=== PATIENT | male | born 1940 | race Two or more races ===

== ENCOUNTER → 2016-05-11 | Outpatient (CLI) | payer OTHER ==
[2016-05-11 09:51] LABS: Urine Protein/Creatinine Ratio 0.13
[2016-05-11 10:36] LABS: Albumin 3.7 g/dL (3.4-5.0); BUN/Creatinine Ratio 21.3; Bilirubin, Total 0.5 mg/dL (0.2-1.0); Calcium 9.4 mg/dL (8.5-10.1); Magnesium 2.1 mg/dL (1.6-2.6); Uric Acid 5.6 mg/dL (3.5-7.2)
== END | disposition home or self-care (01) ==
LOC: LAB 08:31
PROVIDERS: ATTEND Internal Medicine Nephrology
DX: R80.9 Proteinuria, unspecified (principal)
CPT/HCPCS: 36415; 80053; 80061; 82570; 83036; 83735; 84156; 84550

== ENCOUNTER → 2016-05-26 | Outpatient (CLI) | payer OTHER ==
[2016-05-26 09:21] LABS: Basophils # (auto) 0 uL; Basophils % (auto) 0.3 % (0.0-2.0); Eosinophils # (auto) 0.1 uL; Eosinophils % (auto) 2.8 % (0.0-7.0); Hematocrit 36.7 % (41.0-53.0); Hemoglobin 12.1 g/dL (13.5-17.5); Lymphocytes # (auto) 1.5 uL; Lymphocytes % (auto) 29.1 % (10.0-50.0); Mean Corpuscular Hemoglobin 28.2 pg (28.0-32.0); Mean Corpuscular Hgb Conc. 32.9 g/dL (32.0-36.0); Mean Corpuscular Volume 85.6 fL (80.0-100.0); Monocytes # (auto) 0.3 uL; Neutrophils # (auto) 3.3 uL; Neutrophils % (auto) 61.8 % (37.0-80.0); Platelet Count (auto) 166 10^3/uL (140-450); Red Cell Distribution Width 15.6 % (11.6-16.0); White Blood Cell 5.3 10^3/uL (4.4-10.8)
[2016-05-26 09:32] LABS: Urine Bilirubin Negative (Negative); Urine Blood Negative /uL (Negative); Urine Color Yellow (Yellow); Urine Glucose Normal (Normal); Urine Ketone Negative (Negative); Urine Nitrite Negative (Negative); Urine RBC <1 /hpf (0 - 3); Urine Urobilinogen Normal (Negative); Urine pH 5.5 (5.0-8.0)
[2016-05-26 09:43] LABS: Albumin 3.8 g/dL (3.4-5.0); BUN/Creatinine Ratio 18.9; Bilirubin, Total 0.5 mg/dL (0.2-1.0); Calcium 9.2 mg/dL (8.5-10.1); Potassium 4.7 mmol/L (3.5-5.1); Total Protein 8.1 g/dL (6.4-8.2)
== END | disposition home or self-care (01) ==
LOC: LAB 08:08
DX: E11.21 Type 2 diabetes mellitus with diabetic nephropathy (principal); C61 Malignant neoplasm of prostate
CPT/HCPCS: 36415; 80053; 80061; 81001; 82043; 82306; 83036; 84153; 84443; 85025

== ENCOUNTER → 2016-06-15 | Outpatient (CLI) | payer OTHER ==
[2016-06-15 11:48] LABS: Basophils # (auto) 0 uL; Basophils % (auto) 0.5 % (0.0-2.0); Eosinophils # (auto) 0.1 uL; Eosinophils % (auto) 2.3 % (0.0-7.0); Hematocrit 36.9 % (41.0-53.0); Hemoglobin 12.2 g/dL (13.5-17.5); Lymphocytes # (auto) 1.4 uL; Lymphocytes % (auto) 21.2 % (10.0-50.0); Mean Corpuscular Hemoglobin 28.4 pg (28.0-32.0); Mean Corpuscular Volume 86.2 fL (80.0-100.0); Mean Platelet Volume 7.8 fL (7.4-10.4); Monocytes # (auto) 0.5 uL; Monocytes % (auto) 7.9 % (0.0-12.0); Neutrophils # (auto) 4.4 uL; Neutrophils % (auto) 68.1 % (37.0-80.0); Platelet Count (auto) 166 10^3/uL (140-450); Red Cell Distribution Width 15.5 % (11.6-16.0); White Blood Cell 6.5 10^3/uL (4.4-10.8)
[2016-06-15 13:15] LABS: Albumin 3.9 g/dL (3.4-5.0); BUN/Creatinine Ratio 21.3; Bilirubin, Total 0.5 mg/dL (0.2-1.0); Calcium 9.7 mg/dL (8.5-10.1); Potassium 4.7 mmol/L (3.5-5.1); Total Protein 8.1 g/dL (6.4-8.2)
== END | disposition home or self-care (01) ==
LOC: LAB 11:22
PROVIDERS: ATTEND Internal Medicine
DX: C61 Malignant neoplasm of prostate (principal)
CPT/HCPCS: 36415; 80053; 83615; 84153; 85025

== ENCOUNTER → 2016-09-09 | Outpatient (CLI) | payer OTHER ==
[2016-09-09 12:08] LABS: Albumin 3.6 g/dL (3.4-5.0); BUN/Creatinine Ratio 20.3; Bilirubin, Total 0.5 mg/dL (0.2-1.0); Calcium 8.8 mg/dL (8.5-10.1); Potassium 4.7 mmol/L (3.5-5.1); Total Protein 7.7 g/dL (6.4-8.2)
== END | disposition home or self-care (01) ==
LOC: LAB 11:15
PROVIDERS: ATTEND Internal Medicine Nephrology
DX: N18.3 Chronic kidney disease, stage 3 (moderate) (principal); D63.1 Anemia in chronic kidney disease; R80.9 Proteinuria, unspecified; M10.9 Gout, unspecified
CPT/HCPCS: 36415; 80053; 82043; 82570; 83036; 84153

== ENCOUNTER 2016-11-01 17:14 | Emergency (ER) | payer OTHER ==
[~2016-11-01] VITALS: Ht 170.2 cm; Wt 99.8 kg
[2016-11-01 18:28] LABS: Basophils # (auto) 0 uL; Basophils % (auto) 0.4 % (0.0-2.0); CONDITION Y; Eosinophils # (auto) 0.1 uL; Eosinophils % (auto) 1.7 % (0.0-7.0); Hematocrit 37.5 % (41.0-53.0); Hemoglobin 12.6 g/dL (13.5-17.5); Lymphocytes # (auto) 1.5 uL; Lymphocytes % (auto) 24.6 % (10.0-50.0); Mean Corpuscular Hemoglobin 29.3 pg (28.0-32.0); Mean Corpuscular Hgb Conc. 33.7 g/dL (32.0-36.0); Mean Platelet Volume 7.6 fL (7.4-10.4); Monocytes # (auto) 0.5 uL; Monocytes % (auto) 8.6 % (0.0-12.0); Neutrophils # (auto) 3.9 uL; Neutrophils % (auto) 64.7 % (37.0-80.0); Platelet Count (auto) 168 10^3/uL (140-450); Red Cell Distribution Width 15.7 % (11.6-16.0)
[2016-11-01 18:46] LABS: Albumin 3.9 g/dL (3.4-5.0); Alkaline Phosphatase 70 U/L (45-117); Anion Gap 8 (5-15); Aspartate Aminotransferase 16 U/L (15-37); Bilirubin, Total 0.5 mg/dL (0.2-1.0); Blood Urea Nitrogen 29 mg/dL (7-18); Calcium 8.9 mg/dL (8.5-10.1); Carbon Dioxide 27 mmol/L (21-32); Chloride 102 mmol/L (98-107); GFR African American 61 mL/min; GFR Non-African American 50 mL/min; Glucose 115 mg/dL (74-106); Potassium 4.4 mmol/L (3.5-5.1); Sodium 137 mmol/L (136-145); Total Protein 8.5 g/dL (6.4-8.2)
[2016-11-01 21:16] VITALS: BP 171/82
== END 2016-11-01 22:02 | disposition home or self-care (01) ==
LOC: ER 17:21
DX: B02.9 Zoster without complications (principal); E11.9 Type 2 diabetes mellitus without complications; E78.5 Hyperlipidemia, unspecified; I10 Essential (primary) hypertension; Z85.46 Personal history of malignant neoplasm of prostate
CPT/HCPCS: 36415; 71010; 80053; 84484; 85025; 93005

== ENCOUNTER → 2017-01-12 | Outpatient (CLI) | payer OTHER ==
[2017-01-12 08:28] LABS: Basophils # (auto) 0 uL; Basophils % (auto) 0.9 % (0.0-2.0); Eosinophils # (auto) 0.2 uL; Eosinophils % (auto) 3.3 % (0.0-7.0); Hematocrit 35.7 % (41.0-53.0); Hemoglobin 12.1 g/dL (13.5-17.5); Lymphocytes # (auto) 1.6 uL; Lymphocytes % (auto) 31.5 % (10.0-50.0); Mean Corpuscular Hemoglobin 30.2 pg (28.0-32.0); Mean Corpuscular Volume 89.1 fL (80.0-100.0); Mean Platelet Volume 7.3 fL (6.9-10.8); Monocytes # (auto) 0.4 uL; Monocytes % (auto) 7.9 % (0.0-12.0); Neutrophils # (auto) 2.8 uL; Neutrophils % (auto) 56.4 % (37.0-80.0); Nucleated Red Blood Cells % 0.1 %; Platelet Count (auto) 143 10^3/uL (140-450); Red Cell Distribution Width 15.1 % (11.8-14.3)
[2017-01-12 09:28] LABS: Albumin 3.6 g/dL (3.4-5.0); BUN/Creatinine Ratio 22.4; Bilirubin, Total 0.5 mg/dL (0.2-1.0); Calcium 8.9 mg/dL (8.5-10.1); Potassium 4.4 mmol/L (3.5-5.1)
== END | disposition home or self-care (01) ==
LOC: LAB 07:58
PROVIDERS: ATTEND Internal Medicine
DX: I10 Essential (primary) hypertension (principal); E11.9 Type 2 diabetes mellitus without complications
CPT/HCPCS: 36415; 80053; 83036; 83721; 85025

== ENCOUNTER → 2017-03-10 | Outpatient (CLI) | payer OTHER | END | disposition home or self-care (01) | LOC: LAB 15:26 | PROVIDERS: ATTEND Internal Medicine | DX: D64.9 Anemia, unspecified (principal) | CPT/HCPCS: 82270 ==

== ENCOUNTER → 2017-03-30 | Outpatient (CLI) | payer OTHER ==
[2017-03-30 11:37] LABS: Basophils # (auto) 0 uL; Basophils % (auto) 0.6 % (0.0-2.0); Eosinophils # (auto) 0.2 uL; Eosinophils % (auto) 2.4 % (0.0-7.0); Hematocrit 34.9 % (41.0-53.0); Hemoglobin 11.7 g/dL (13.5-17.5); Mean Corpuscular Hemoglobin 29.1 pg (28.0-32.0); Mean Corpuscular Hgb Conc. 33.4 g/dL (32.0-36.0); Mean Platelet Volume 7.4 fL (6.9-10.8); Monocytes # (auto) 0.5 uL; Neutrophils # (auto) 5.2 uL; Platelet Count (auto) 186 10^3/uL (140-450); Red Cell Distribution Width 14.3 % (11.8-14.3); White Blood Cell 6.8 10^3/uL (4.4-10.8)
[2017-03-30 12:00] LABS: Albumin 3.4 g/dL (3.4-5.0); BUN/Creatinine Ratio 15.3; Bilirubin, Total 0.5 mg/dL (0.2-1.0); Calcium 8.9 mg/dL (8.5-10.1); Potassium 4.3 mmol/L (3.5-5.1); Total Protein 8.1 g/dL (6.4-8.2)
== END | disposition home or self-care (01) ==
LOC: LAB 10:47
PROVIDERS: ATTEND Internal Medicine
DX: C61 Malignant neoplasm of prostate (principal)
CPT/HCPCS: 36415; 80053; 83615; 84153; 85025

== ENCOUNTER → 2017-04-21 | Outpatient (CLI) | payer OTHER ==
[2017-04-22 08:56] LABS: Free T4 (Free Thyroxine) 0.85 ng/dL (0.89-1.76)
== END | disposition home or self-care (01) ==
LOC: LAB 08:53
PROVIDERS: ATTEND Internal Medicine Cardiovascular Disease
DX: E11.9 Type 2 diabetes mellitus without complications (principal); D64.9 Anemia, unspecified; E03.9 Hypothyroidism, unspecified; I25.10 Atherosclerotic heart disease of native coronary artery without angina pectoris; R91.1 Solitary pulmonary nodule
CPT/HCPCS: 36415; 82607; 83036; 83540; 83615; 84439; 84443

== ENCOUNTER → 2017-04-27 | Outpatient (CLI) | payer OTHER | END | disposition home or self-care (01) | LOC: XYW 09:54 | PROVIDERS: ATTEND Internal Medicine Cardiovascular Disease | DX: I08.0 Rheumatic disorders of both mitral and aortic valves (principal); I25.10 Atherosclerotic heart disease of native coronary artery without angina pectoris; R91.1 Solitary pulmonary nodule | CPT/HCPCS: 93306 ==

== ENCOUNTER → 2017-11-11 | Outpatient (CLI) | payer OTHER, MEDICARE ==
[2017-11-11 09:50] LABS: Basophils # (auto) 0 uL; Basophils % (auto) 0.9 % (0.0-2.0); Eosinophils # (auto) 0.2 uL; Eosinophils % (auto) 4.2 % (0.0-7.0); Hematocrit 33.5 % (41.0-53.0); Hemoglobin 10.9 g/dL (13.5-17.5); Lymphocytes # (auto) 1.2 uL; Lymphocytes % (auto) 26.8 % (10.0-50.0); Mean Corpuscular Hemoglobin 28.7 pg (28.0-32.0); Mean Corpuscular Hgb Conc. 32.7 g/dL (32.0-36.0); Monocytes # (auto) 0.3 uL; Monocytes % (auto) 6.7 % (0.0-12.0); Neutrophils # (auto) 2.8 uL; Neutrophils % (auto) 61.4 % (37.0-80.0); Platelet Count (auto) 139 10^3/uL (140-450); Red Blood Cells 3.81 10^6/uL (4.5-5.90); Red Cell Distribution Width 15.6 % (11.8-14.3); White Blood Cell 4.6 10^3/uL (4.4-10.8)
[2017-11-11 10:03] LABS: Urine Bacteria NONE SEEN /hpf (None Seen); Urine Blood TRACE /uL (Negative); Urine Specific Gravity 1.019 (1.001-1.035); Urine WBC 1 /hpf (0 - 3)
[2017-11-11 10:18] LABS: Albumin 3.6 g/dL (3.4-5.0); BUN/Creatinine Ratio 22.8; Bilirubin, Total 0.7 mg/dL (0.2-1.0); Calcium 8.9 mg/dL (8.5-10.1); Potassium 4.1 mmol/L (3.5-5.1); Total Protein 7.8 g/dL (6.4-8.2)
== END | disposition home or self-care (01) ==
LOC: LAB 08:44
PROVIDERS: ATTEND Internal Medicine
DX: E11.9 Type 2 diabetes mellitus without complications (principal); E03.9 Hypothyroidism, unspecified; D64.9 Anemia, unspecified; Z85.46 Personal history of malignant neoplasm of prostate
CPT/HCPCS: 36415; 80053; 80061; 81001; 83036; 83540; 84439; 84443; 85025; 85652

== ENCOUNTER → 2017-11-22 | Outpatient (CLI) | payer OTHER ==
[~2017-11-22] VITALS: Ht 165.1 cm; Wt 104.3 kg
[~2017-11-22] MED LIST: ADENOSINE 88 MG in GIVE UN-DILUTED 0 ML IV STA
[2017-11-22 10:55] VITALS: BP 153/69
== END | disposition home or self-care (01) ==
LOC: XY 07:56
PROVIDERS: ATTEND Internal Medicine
DX: I10 Essential (primary) hypertension (principal); E11.9 Type 2 diabetes mellitus without complications; E03.9 Hypothyroidism, unspecified
CPT/HCPCS: 78452; 93017; A9500; J0153

== ENCOUNTER → 2017-11-29 | Outpatient (CLI) | payer OTHER ==
[2017-11-29 11:16] LABS: Basophils # (auto) 0 uL; Basophils % (auto) 1.1 % (0.0-2.0); Eosinophils # (auto) 0.2 uL; Eosinophils % (auto) 4.6 % (0.0-7.0); Hematocrit 34.7 % (41.0-53.0); Hemoglobin 11.4 g/dL (13.5-17.5); Lymphocytes # (auto) 0.9 uL; Mean Corpuscular Hemoglobin 29.1 pg (28.0-32.0); Mean Corpuscular Hgb Conc. 32.8 g/dL (32.0-36.0); Mean Corpuscular Volume 88.6 fL (80.0-100.0); Monocytes # (auto) 0.2 uL; Monocytes % (auto) 6.1 % (0.0-12.0); Neutrophils # (auto) 2.6 uL; Neutrophils % (auto) 66.2 % (37.0-80.0); Platelet Count (auto) 122 10^3/uL (140-450); Red Blood Cells 3.92 10^6/uL (4.5-5.90); Red Cell Distribution Width 15.2 % (11.8-14.3); White Blood Cell 3.9 10^3/uL (4.4-10.8)
[2017-11-29 11:37] LABS: Albumin 3.7 g/dL (3.4-5.0); BUN/Creatinine Ratio 19.3; Bilirubin, Total 0.5 mg/dL (0.2-1.0); Calcium 8.6 mg/dL (8.5-10.1); Potassium 4.5 mmol/L (3.5-5.1); Total Protein 7.9 g/dL (6.4-8.2)
== END | disposition home or self-care (01) ==
LOC: LAB 10:45
PROVIDERS: ATTEND Internal Medicine
DX: C61 Malignant neoplasm of prostate (principal)
CPT/HCPCS: 36415; 80053; 83615; 84153; 85025

== ENCOUNTER → 2017-12-20 | Outpatient (CLI) | payer OTHER ==
[2017-12-20 16:44] LABS: Basophils # (auto) 0 uL; Basophils % (auto) 0.6 % (0.0-2.0); Eosinophils # (auto) 0.2 uL; Eosinophils % (auto) 3.4 % (0.0-7.0); Hematocrit 35.8 % (41.0-53.0); Hemoglobin 11.7 g/dL (13.5-17.5); Lymphocytes # (auto) 1.5 uL; Lymphocytes % (auto) 27.8 % (10.0-50.0); Mean Corpuscular Hemoglobin 28.7 pg (28.0-32.0); Mean Corpuscular Hgb Conc. 32.7 g/dL (32.0-36.0); Monocytes # (auto) 0.5 uL; Monocytes % (auto) 8.2 % (0.0-12.0); Neutrophils # (auto) 3.3 uL; Nucleated Red Blood Cells % 0.1 %; Platelet Count (auto) 129 10^3/uL (140-450); Red Blood Cells 4.07 10^6/uL (4.5-5.90); Red Cell Distribution Width 15.3 % (11.8-14.3); White Blood Cell 5.5 10^3/uL (4.4-10.8)
[2017-12-20 17:06] LABS: % Iron Saturation 17.4 % (20-55)
[2017-12-20 17:12] LABS: Albumin 3.7 g/dL (3.4-5.0); BUN/Creatinine Ratio 20.7; Bilirubin, Total 0.5 mg/dL (0.2-1.0); Calcium 8.8 mg/dL (8.5-10.1); Ferritin 35.4 ng/mL (10-322); Free T4 (Free Thyroxine) 0.88 ng/dL (0.89-1.76); Potassium 4.5 mmol/L (3.5-5.1); Total Protein 8.1 g/dL (6.4-8.2)
[2017-12-20 17:13] LABS: Folate (Folic Acid) 7.92 ng/mL (5.38-24)
[2017-12-22 09:18] LABS: Hepatitis B Surface Antibody Negative
[2017-12-22 09:53] LABS: Hepatitis A Total Antibody Positive
[2017-12-22 10:24] LABS: Hepatitis B Core Total AB Negative; Hepatitis B Surface Antigen Negative (Negative)
[2017-12-22 10:25] LABS: Hepatitis C Antibody Negative (Negative)
== END | disposition home or self-care (01) ==
LOC: LAB 15:52
PROVIDERS: ATTEND Internal Medicine
DX: C61 Malignant neoplasm of prostate (principal); I10 Essential (primary) hypertension; E03.9 Hypothyroidism, unspecified; E11.9 Type 2 diabetes mellitus without complications
CPT/HCPCS: 36415; 80053; 82607; 82668; 82728; 82746; 83010; 83540; 83550; 83615; 84436; 84439; 84443; 85025; 85045; 85652; 86038; 86225; 86703; 86704; 86706; 86708; 86803; 86880; 86885; 87340

== ENCOUNTER → 2017-12-28 | Outpatient (CLI) | payer OTHER | END | disposition home or self-care (01) | LOC: XY 08:43 | PROVIDERS: ATTEND Internal Medicine | DX: C61 Malignant neoplasm of prostate (principal); I10 Essential (primary) hypertension; N28.9 Disorder of kidney and ureter, unspecified; D61.818 Other pancytopenia; I49.8 Other specified cardiac arrhythmias | CPT/HCPCS: 78306; A9503 ==

== ENCOUNTER → 2018-03-14 | Outpatient (CLI) | payer OTHER | END | disposition home or self-care (01) | LOC: LAB 08:42 | PROVIDERS: ATTEND Internal Medicine | DX: E11.9 Type 2 diabetes mellitus without complications (principal); D64.9 Anemia, unspecified; D69.3 Immune thrombocytopenic purpura | CPT/HCPCS: 36415; 83036 ==

== ENCOUNTER → 2018-04-10 | Outpatient (CLI) | payer OTHER ==
[2018-04-10 11:35] LABS: Basophils # (auto) 0 uL; Basophils % (auto) 0.8 % (0.0-2.0); Eosinophils # (auto) 0.2 uL; Eosinophils % (auto) 4.1 % (0.0-7.0); Hematocrit 37.1 % (41.0-53.0); Hemoglobin 12.1 g/dL (13.5-17.5); Lymphocytes # (auto) 0.8 uL; Lymphocytes % (auto) 18.6 % (10.0-50.0); Mean Corpuscular Hgb Conc. 32.7 g/dL (32.0-36.0); Mean Corpuscular Volume 88.8 fL (80.0-100.0); Monocytes # (auto) 0.3 uL; Monocytes % (auto) 7.4 % (0.0-12.0); Neutrophils # (auto) 3.2 uL; Neutrophils % (auto) 69.1 % (37.0-80.0); Platelet Count (auto) 128 10^3/uL (140-450); Red Blood Cells 4.18 10^6/uL (4.5-5.90); Red Cell Distribution Width 16.1 % (11.8-14.3); White Blood Cell 4.6 10^3/uL (4.4-10.8)
[2018-04-10 13:17] LABS: Albumin 3.7 g/dL (3.4-5.0); BUN/Creatinine Ratio 18.8; Calcium 8.7 mg/dL (8.5-10.1); Potassium 4.6 mmol/L (3.5-5.1)
[2018-04-10 13:20] LABS: Bilirubin, Total 0.5 mg/dL (0.2-1.0)
[2018-04-11 01:21] LABS: % Iron Saturation 21.9 % (20-55)
== END | disposition home or self-care (01) ==
LOC: LAB 11:20
PROVIDERS: ATTEND Internal Medicine
DX: C61 Malignant neoplasm of prostate (principal)
CPT/HCPCS: 36415; 80053; 83540; 83550; 83615; 84153; 85025

== ENCOUNTER → 2018-07-13 | Outpatient (CLI) | payer OTHER, MEDICARE ==
[2018-07-13 09:46] LABS: Basophils # (auto) 0.1 uL; Basophils % (auto) 1.2 % (0.0-2.0); Eosinophils # (auto) 0.2 uL; Eosinophils % (auto) 5.1 % (0.0-7.0); Hematocrit 33.9 % (41.0-53.0); Hemoglobin 11.4 g/dL (13.5-17.5); Lymphocytes # (auto) 1.2 uL; Lymphocytes % (auto) 27.8 % (10.0-50.0); Mean Corpuscular Hgb Conc. 33.7 g/dL (32.0-36.0); Mean Corpuscular Volume 89.1 fL (80.0-100.0); Monocytes # (auto) 0.3 uL; Neutrophils # (auto) 2.5 uL; Neutrophils % (auto) 58.9 % (37.0-80.0); Nucleated Red Blood Cells % 0.1 %; Platelet Count (auto) 117 10^3/uL (140-450); White Blood Cell 4.3 10^3/uL (4.4-10.8)
[2018-07-13 10:44] LABS: Potassium 4.6 mmol/L (3.5-5.1)
[2018-07-13 10:57] LABS: Albumin 3.7 g/dL (3.4-5.0); BUN/Creatinine Ratio 21.5; Bilirubin, Total 0.8 mg/dL (0.2-1.0); Calcium 8.7 mg/dL (8.5-10.1); Total Protein 7.6 g/dL (6.4-8.2)
== END | disposition home or self-care (01) ==
LOC: LAB 08:50
PROVIDERS: ATTEND Internal Medicine
DX: E11.9 Type 2 diabetes mellitus without complications (principal); I10 Essential (primary) hypertension
CPT/HCPCS: 36415; 80053; 83036; 85025

== ENCOUNTER → 2018-08-23 | Outpatient (CLI) | payer OTHER, MEDICARE ==
[2018-08-23 13:00] LABS: Basophils # (auto) 0.1 uL; Basophils % (auto) 1.2 % (0.0-2.0); Eosinophils # (auto) 0.2 uL; Eosinophils % (auto) 3.2 % (0.0-7.0); Hematocrit 35.9 % (41.0-53.0); Hemoglobin 11.8 g/dL (13.5-17.5); Lymphocytes # (auto) 1.3 uL; Lymphocytes % (auto) 24.7 % (10.0-50.0); Mean Corpuscular Hemoglobin 29.3 pg (28.0-32.0); Mean Corpuscular Hgb Conc. 32.8 g/dL (32.0-36.0); Mean Corpuscular Volume 89.2 fL (80.0-100.0); Monocytes # (auto) 0.3 uL; Monocytes % (auto) 6.4 % (0.0-12.0); Neutrophils # (auto) 3.3 uL; Neutrophils % (auto) 64.5 % (37.0-80.0); Nucleated Red Blood Cells % 0.1 %; Platelet Count (auto) 133 10^3/uL (140-450); Red Blood Cells 4.03 10^6/uL (4.5-5.90); Red Cell Distribution Width 15.3 % (11.8-14.3); White Blood Cell 5.1 10^3/uL (4.4-10.8)
[2018-08-23 13:44] LABS: Albumin 3.6 g/dL (3.4-5.0); BUN/Creatinine Ratio 21.3; Calcium 8.9 mg/dL (8.5-10.1); Potassium 4.8 mmol/L (3.5-5.1)
[2018-08-23 13:47] LABS: Bilirubin, Total 0.5 mg/dL (0.2-1.0); Total Protein 7.7 g/dL (6.4-8.2)
== END | disposition home or self-care (01) ==
LOC: LAB 12:40
PROVIDERS: ATTEND Internal Medicine
DX: C61 Malignant neoplasm of prostate (principal)
CPT/HCPCS: 36415; 80053; 83615; 84153; 85025

== ENCOUNTER → 2018-12-18 | Outpatient (CLI) | payer OTHER, MEDICARE ==
[2018-12-18 12:22] LABS: Basophils # (auto) 0 uL; Basophils % (auto) 0.6 % (0.0-2.0); Eosinophils # (auto) 0.1 uL; Eosinophils % (auto) 2.9 % (0.0-7.0); Hematocrit 37.3 % (41.0-53.0); Hemoglobin 12.3 g/dL (13.5-17.5); Lymphocytes # (auto) 1.2 uL; Lymphocytes % (auto) 25.8 % (10.0-50.0); Mean Corpuscular Hemoglobin 29.3 pg (28.0-32.0); Mean Corpuscular Hgb Conc. 32.9 g/dL (32.0-36.0); Mean Corpuscular Volume 89.3 fL (80.0-100.0); Monocytes # (auto) 0.3 uL; Monocytes % (auto) 5.9 % (0.0-12.0); Neutrophils # (auto) 2.9 uL; Neutrophils % (auto) 64.8 % (37.0-80.0); Nucleated Red Blood Cells % 0.1 %; Platelet Count (auto) 119 10^3/uL (140-450); Red Blood Cells 4.18 10^6/uL (4.5-5.90); Red Cell Distribution Width 15.7 % (11.8-14.3); White Blood Cell 4.6 10^3/uL (4.4-10.8)
[2018-12-18 12:43] LABS: Albumin 3.8 g/dL (3.4-5.0); Calcium 8.9 mg/dL (8.5-10.1); Potassium 4.5 mmol/L (3.5-5.1)
[2018-12-18 12:47] LABS: BUN/Creatinine Ratio 24.8; Bilirubin, Total 0.7 mg/dL (0.2-1.0)
== END | disposition home or self-care (01) ==
LOC: LAB 11:29
PROVIDERS: ATTEND Internal Medicine
DX: C61 Malignant neoplasm of prostate (principal)
CPT/HCPCS: 36415; 80053; 83615; 84153; 85025

== ENCOUNTER → 2019-04-13 | Outpatient (CLI) | payer OTHER, MEDICARE ==
[2019-04-13 10:15] LABS: Cholesterol 118 mg/dL (< 200)
[2019-04-13 10:18] LABS: HDL Cholesterol 31 mg/dL (40-59); LDL Cholesterol 65 mg/dL (< 100); Triglycerides 125 mg/dL (< 150)
[2019-04-13 10:29] LABS: Free T4 (Free Thyroxine) 1.05 ng/dL (0.89-1.76)
== END | disposition home or self-care (01) ==
LOC: LAB 09:18
PROVIDERS: ATTEND Internal Medicine
DX: E11.40 Type 2 diabetes mellitus with diabetic neuropathy, unspecified (principal)
CPT/HCPCS: 36415; 80061; 82607; 83036; 84439; 84443

== ENCOUNTER → 2019-08-08 | Outpatient (CLI) | payer OTHER ==
[2019-08-08 15:24] LABS: Basophils # (auto) 0 10 ^3/uL (0-0.2); Basophils % (auto) 0.7 % (0.0-2.0); Eosinophils # (auto) 0.2 10 ^3/uL (0-0.8); Eosinophils % (auto) 3.2 % (0.0-7.0); Hematocrit 33.4 % (41.0-53.0); Hemoglobin 10.6 g/dL (13.5-17.5); Lymphocytes # (auto) 1.3 10 ^3/uL (0.4-5.4); Lymphocytes % (auto) 20.1 % (10.0-50.0); Mean Corpuscular Hemoglobin 27.3 pg (28.0-32.0); Mean Corpuscular Hgb Conc. 31.8 g/dL (32.0-36.0); Mean Corpuscular Volume 85.8 fL (80.0-100.0); Monocytes # (auto) 0.6 10 ^3/uL (0-1.3); Monocytes % (auto) 8.6 % (0.0-12.0); Neutrophils # (auto) 4.5 10 ^3/uL (1.6-8.6); Neutrophils % (auto) 67.4 % (37.0-80.0); Platelet Count (auto) 183 10^3/uL (140-450); Red Cell Distribution Width 15.8 % (11.8-14.3); White Blood Cell 6.7 10^3/uL (4.4-10.8)
[2019-08-08 15:41] LABS: Albumin 3.3 g/dL (3.4-5.0); Calcium 8.7 mg/dL (8.5-10.1); Potassium 4.8 mmol/L (3.5-5.1)
[2019-08-08 15:44] LABS: BUN/Creatinine Ratio 16.1; Bilirubin, Total 0.4 mg/dL (0.2-1.0); Total Protein 8.2 g/dL (6.4-8.2)
== END | disposition home or self-care (01) ==
LOC: LAB 15:03
PROVIDERS: ATTEND Internal Medicine
DX: C61 Malignant neoplasm of prostate (principal)
CPT/HCPCS: 36415; 80053; 83615; 84153; 85025

== ENCOUNTER → 2022-08-19 | Outpatient (CLI) | payer OTHER ==
[2022-08-19 11:19] LABS: Basophils # (auto) 0.1 10 ^3/uL (0-0.2); Basophils % (auto) 0.9 % (0.0-2.0); Eosinophils # (auto) 0.3 10 ^3/uL (0-0.8); Hematocrit 37.7 % (41.0-53.0); Hemoglobin 12.3 g/dL (13.5-17.5); Lymphocytes # (auto) 1.7 10 ^3/uL (0.4-5.4); Lymphocytes % (auto) 24.3 % (10.0-50.0); Mean Corpuscular Hemoglobin 27.1 pg (28.0-32.0); Mean Corpuscular Hgb Conc. 32.6 g/dL (32.0-36.0); Monocytes # (auto) 0.4 10 ^3/uL (0-1.3); Monocytes % (auto) 5.4 % (0.0-12.0); Neutrophils # (auto) 4.5 10 ^3/uL (1.6-8.6); Neutrophils % (auto) 65.4 % (37.0-80.0); Nucleated Red Blood Cells % 0.1 %; Red Blood Cells 4.54 10^6/uL (4.5-5.90); Red Cell Distribution Width 15.9 % (11.8-14.3); White Blood Cell 6.9 10^3/uL (4.4-10.8)
[2022-08-19 12:44] LABS: Albumin 3.3 g/dL (3.4-5.0); Calcium 8.7 mg/dL (8.5-10.1); Magnesium 1.8 mg/dL (1.6-2.6); Potassium 4.9 mmol/L (3.5-5.1)
[2022-08-19 12:47] LABS: BUN/Creatinine Ratio 21.9 (10.0-20.0); Bilirubin, Total 0.4 mg/dL (0.2-1.0); Total Protein 7.9 g/dL (6.4-8.2)
== END | disposition home or self-care (01) ==
LOC: LAB 11:06
PROVIDERS: ATTEND Internal Medicine
DX: C61 Malignant neoplasm of prostate (principal)
CPT/HCPCS: 36415; 80053; 82306; 83615; 83735; 85025

== ENCOUNTER → 2023-04-07 | Outpatient (CLI) | payer OTHER ==
[~2023-04-07] MED LIST changes: -ADENOSINE 88 MG in GIVE UN-DILUTED 0 ML IV STA; +ALBU108A5 INH; +ATOR40TA52 PO; +BICA50TA13 PO; +GLIP10TA9 PO; +INS7030I SC; +LEVO750T8 PO; +LEVO75TA6 PO; +LINA5TAB; +LIRA18IN2; +LIS20T PO; +METF-372 PO; +METO25TA5 PO; +RIV15T PO
[2023-04-07 11:08] LABS: Basophils # (auto) 0 10 ^3/uL (0-0.2); Basophils % (auto) 0.7 % (0.0-2.0); Eosinophils # (auto) 0.3 10 ^3/uL (0-0.8); Eosinophils % (auto) 3.9 % (0.0-7.0); Hematocrit 35.3 % (41.0-53.0); Hemoglobin 11.4 g/dL (13.5-17.5); Lymphocytes # (auto) 1.5 10 ^3/uL (0.4-5.4); Lymphocytes % (auto) 22.5 % (10.0-50.0); Mean Corpuscular Hemoglobin 27.4 pg (28.0-32.0); Mean Corpuscular Hgb Conc. 32.2 g/dL (32.0-36.0); Monocytes # (auto) 0.4 10 ^3/uL (0-1.3); Monocytes % (auto) 6.6 % (0.0-12.0); Neutrophils # (auto) 4.4 10 ^3/uL (1.6-8.6); Neutrophils % (auto) 66.3 % (37.0-80.0); Red Blood Cells 4.16 10^6/uL (4.5-5.90); Red Cell Distribution Width 15.7 % (11.8-14.3); White Blood Cell 6.7 10^3/uL (4.4-10.8)
[2023-04-07 11:30] LABS: Alanine Aminotransferase 18 U/L (7-40); Albumin 3.9 g/dL (3.2-4.8); Alkaline Phosphatase 114 U/L (46-116); Anion Gap 5 (5-15); Aspartate Aminotransferase 27 U/L (13-40); BUN/Creatinine Ratio 15.8 (10.0-20.0); Bilirubin, Total 0.4 mg/dL (0.2-1.0); Blood Urea Nitrogen 22 mg/dL (9-23); Calcium 9.2 mg/dL (8.5-10.1); Carbon Dioxide 27 mmol/L (20-30); Chloride 103 mmol/L (98-107); Glucose 292 mg/dL (74-106); Potassium 4.9 mmol/L (3.5-5.1); Sodium 135 mmol/L (136-145); Total Protein 7.4 g/dL (5.7-8.2)
== END | disposition home or self-care (01) ==
LOC: LAB 10:38
PROVIDERS: ATTEND Internal Medicine
DX: C61 Malignant neoplasm of prostate (principal)
CPT/HCPCS: 36415; 80053; 84153; 85025

== ENCOUNTER 2023-06-08 20:11 | Inpatient (IN) | payer OTHER ==
[~2023-06-08] VITALS: Ht 170.2 cm; Wt 91.8 kg
[2023-06-08 21:04] VITALS: PULSE 142; RESP 26; O2SAT 89; O2SAT 91
[2023-06-08] MEDS: dilTIAZem 25 MG/5 ML VIAL IV ONE ×3 (21:08→22:37)
[2023-06-08] MEDS: cefTRIAXone 1GM/50ML D5W 50 ML IV ONE (21:17)
[2023-06-08 21:19] LABS: Chloride 102 mmol/L (98-107); Potassium 4.8 mmol/L (3.5-5.1); Sodium 136 mmol/L (136-145)
[2023-06-08 21:20] LABS: Anion Gap 8 (5-15); Carbon Dioxide 26 mmol/L (20-30)
[2023-06-08 21:21] LABS: Calcium 9.2 mg/dL (8.5-10.1)
[2023-06-08 21:25] LABS: BUN/Creatinine Ratio 23.2 (10.0-20.0); Blood Urea Nitrogen 32 mg/dL (9-23); Glucose 261 mg/dL (74-106)
[2023-06-08] MEDS: AZITHROMYCIN 250 MG TAB PO ONE (21:38)
[2023-06-08 21:40] LABS: Urine Bacteria NONE SEEN /hpf (None Seen); Urine Blood 1+ /uL (Negative); Urine Clarity Clear (Clear); Urine Color Colorless (Yellow); Urine Hyaline Cast FEW /lpf (0 - 2); Urine Protein, UAD 2+ (Negative); Urine Specific Gravity 1.013 (1.001-1.035); Urine Urobilinogen Normal (Negative); Urine WBC <1 /hpf (0 - 3); Urine pH 5.5 (5.0-8.0)
[2023-06-08 21:47] LABS: Basophils # (auto) 0 10 ^3/uL (0-0.2); Basophils % (auto) 0.4 % (0.0-2.0); Eosinophils # (auto) 0.1 10 ^3/uL (0-0.8); Eosinophils % (auto) 0.4 % (0.0-7.0); Hematocrit 39.3 % (41.0-53.0); Hemoglobin 12.5 g/dL (13.5-17.5); Lymphocytes # (auto) 0.8 10 ^3/uL (0.4-5.4); Lymphocytes % (auto) 5.7 % (10.0-50.0); Mean Corpuscular Hemoglobin 27.1 pg (28.0-32.0); Mean Corpuscular Hgb Conc. 31.9 g/dL (32.0-36.0); Mean Corpuscular Volume 84.9 fL (80.0-100.0); Monocytes # (auto) 0.4 10 ^3/uL (0-1.3); Monocytes % (auto) 2.7 % (0.0-12.0); Neutrophils # (auto) 12.2 10 ^3/uL (1.6-8.6); Neutrophils % (auto) 90.8 % (37.0-80.0); Nucleated Red Blood Cells % 0.1 %; Red Blood Cells 4.63 10^6/uL (4.5-5.90); Red Cell Distribution Width 15.7 % (11.8-14.3); White Blood Cell 13.4 10^3/uL (4.4-10.8)
[2023-06-08 21:49] LABS: Lactic Acid w/Reflex 2.9 mmol/L (0.4-2.0)
[2023-06-08] MEDS: ACETAMINOPHEN 325 MG TAB PO ONE (21:59)
[2023-06-08] MEDS ORDERED: HEPARIN SODIUM (PORCINE) 5000 UNITS/ML 1ML VIAL IV ONE (22:00)
[2023-06-08] MEDS ORDERED: HEPARIN DRIP/D5W 100UNITS/ML 250 ML IV SCH (22:00)
[2023-06-08] MEDS ORDERED: NITROGLYCERIN 0.4 MG SL TAB SL PRN (23:45)
[2023-06-08] MEDS ORDERED: DEXTROSE (50%) 50ML SYRG IV PRN (23:45)
[2023-06-08] MEDS ORDERED: ACETAMINOPHEN 325 MG TAB PO PRN (23:45)
[2023-06-08] MEDS ORDERED: ONDANSETRON HCL 4 MG/2 ML VIAL IV PRN (23:45)
[2023-06-08] MEDS ORDERED: MORPHINE SULFATE INJ 2 MG/ml SYRG IV PRN (23:45)
[2023-06-09] VITALS (9 sets, daily range): BP systolic 104–137; BP diastolic 50–61; PULSE 55–80; RESP 14–20; TEMP 97.5–99.2; O2SAT 96–98
[2023-06-09] MEDS: METOPROLOL TARTRATE 25 MG TAB PO ONE (00:16)
[2023-06-09 00:39] LABS: INR 1.69 (0.9-1.15); Partial Thromboplastin Time 38.3 SEC (24.5-34.5); Prothrombin Time 17.1 sec (9.3-11.8)
[2023-06-09] MEDS ORDERED: LOSA100T58 PO (04:19)
[2023-06-09] MEDS ORDERED: WARF-111 PO (04:19)
[2023-06-09 06:11] LABS: Hematocrit 34.5 % (41.0-53.0); Mean Corpuscular Hgb Conc. 31.8 g/dL (32.0-36.0); Mean Corpuscular Volume 85.1 fL (80.0-100.0); Red Blood Cells 4.06 10^6/uL (4.5-5.90); Red Cell Distribution Width 15.7 % (11.8-14.3); White Blood Cell 15.3 10^3/uL (4.4-10.8)
[2023-06-09 06:19] LABS: Alanine Aminotransferase 12 U/L (7-40); Albumin 3.8 g/dL (3.2-4.8); Alkaline Phosphatase 99 U/L (46-116); Anion Gap 6 (5-15); Aspartate Aminotransferase 23 U/L (13-40); BUN/Creatinine Ratio 17.8 (10.0-20.0); Blood Urea Nitrogen 28 mg/dL (9-23); Calcium 8.8 mg/dL (8.5-10.1); Carbon Dioxide 25 mmol/L (20-30); Chloride 104 mmol/L (98-107); Glucose 283 mg/dL (74-106); Potassium 5.4 mmol/L (3.5-5.1); Sodium 135 mmol/L (136-145)
[2023-06-09 06:20] LABS: Bilirubin, Total 0.4 mg/dL (0.2-1.0)
[2023-06-09 06:21] LABS: Basophils % (manual) 0 (0.0-2.0); Blast Cells 0; Eosinophils % (manual) 0 (0-7); Metamyelocytes % 0; Myelocytes % 0; Promyelocytes % 0; Reactive Lymphocytes 0
[2023-06-09] MEDS: LEVOTHYROXINE SODIUM 25 MCG TAB PO SCH (06:21)
[2023-06-09] MEDS: ACCU-CHEK COMFORT CURVE STRIP VI SCH (06:21)
[2023-06-09] MEDS: InsuLIN REG 1unit/0.01ml Soln (100units/ml) SC SCH (06:26)
[2023-06-09 07:03] LABS: Anisocytosis Slight; Band Neutrophils % (manual) 18; Lymphocytes % (manual) 7 (10.0-50.0); Monocytes % (manual) 7 (0-12); Platelet Estimate Adequate
[2023-06-09] MEDS: cefTRIAXone 1GM/50ML D5W 50 ML IV SCH (09:04)
[2023-06-09] MEDS: LOSARTAN POTASSIUM 50 MG TAB PO SCH (09:10)
[2023-06-09] MEDS: METOPROLOL TARTRATE 25 MG TAB PO SCH (09:10)
[2023-06-09] MEDS: AZITHROMYCIN 500MG/ 250ML 250 ML IV SCH (11:47)
[2023-06-09] MEDS: SODIUM ZIRCONIUM CYCL 10 GM PAK PO ONE (12:24)
[2023-06-09] MEDS: WARFARIN SODIUM 1 MG TAB PO ONE (17:00)
[2023-06-09] MEDS: ATORVASTATIN 20 MG TAB PO SCH (22:02)
[2023-06-09] MEDS: FUROSEMIDE 40 MG/4 ML VIAL IV SCH (22:02)
[2023-06-09] MEDS: EMPAGLIFLOZIN 10 MG TAB PO SCH (22:03)
[2023-06-10] VITALS (7 sets, daily range): BP systolic 113–129; BP diastolic 52–72; PULSE 60–70; RESP 14–18; TEMP 97.9–98.7; O2SAT 99–100
[2023-06-10 05:49] LABS: Basophils # (auto) 0 10 ^3/uL (0-0.2); Basophils % (auto) 0.4 % (0.0-2.0); Eosinophils # (auto) 0.3 10 ^3/uL (0-0.8); Hematocrit 32.1 % (41.0-53.0); Hemoglobin 10.2 g/dL (13.5-17.5); Lymphocytes # (auto) 1.4 10 ^3/uL (0.4-5.4); Lymphocytes % (auto) 10.5 % (10.0-50.0); Mean Corpuscular Hemoglobin 27.1 pg (28.0-32.0); Mean Corpuscular Hgb Conc. 31.8 g/dL (32.0-36.0); Mean Corpuscular Volume 85.4 fL (80.0-100.0); Monocytes # (auto) 0.8 10 ^3/uL (0-1.3); Monocytes % (auto) 5.8 % (0.0-12.0); Neutrophils # (auto) 10.8 10 ^3/uL (1.6-8.6); Neutrophils % (auto) 81.3 % (37.0-80.0); Red Blood Cells 3.75 10^6/uL (4.5-5.90); Red Cell Distribution Width 15.6 % (11.8-14.3); White Blood Cell 13.3 10^3/uL (4.4-10.8)
[2023-06-10 06:01] LABS: INR 1.92 (0.9-1.15); Prothrombin Time 19.3 sec (9.3-11.8)
[2023-06-10 06:25] LABS: Alanine Aminotransferase 15 U/L (7-40); Alkaline Phosphatase 106 U/L (46-116); Anion Gap 4 (5-15); Blood Urea Nitrogen 33 mg/dL (9-23); Calcium 9.1 mg/dL (8.5-10.1); Carbon Dioxide 29 mmol/L (20-30); Chloride 104 mmol/L (98-107); LDL Cholesterol 45 mg/dL (< 100); Potassium 4.3 mmol/L (3.5-5.1); Sodium 137 mmol/L (136-145); Triglycerides 95 mg/dL (< 150)
[2023-06-10 06:26] LABS: Albumin 3.8 g/dL (3.2-4.8); Aspartate Aminotransferase 28 U/L (13-40); Bilirubin, Total 0.3 mg/dL (0.2-1.0); Cholesterol 90 mg/dL (< 200); HDL Cholesterol 26 mg/dL (40-59); Total Protein 7.1 g/dL (5.7-8.2)
[2023-06-10 06:34] LABS: Glucose 145 mg/dL (74-106)
[2023-06-10] MEDS: AZITHROMYCIN 250 MG TAB PO SCH (10:26)
[2023-06-10] MEDS: PANTOPRAZOLE 40 MG TAB PO SCH (10:27)
[2023-06-10] MEDS: WARFARIN SODIUM 2.5 MG TAB PO ONE (19:41)
[2023-06-11] VITALS (7 sets, daily range): BP systolic 100–128; BP diastolic 49–69; PULSE 72–95; RESP 16–22; TEMP 97.5–98.1; O2SAT 94–98
[2023-06-11 05:49] LABS: Basophils # (auto) 0.1 10 ^3/uL (0-0.2); Eosinophils # (auto) 0.3 10 ^3/uL (0-0.8); Hemoglobin 11.1 g/dL (13.5-17.5); Lymphocytes # (auto) 1.4 10 ^3/uL (0.4-5.4); Mean Corpuscular Hemoglobin 26.9 pg (28.0-32.0); Monocytes # (auto) 0.7 10 ^3/uL (0-1.3); Monocytes % (auto) 5.5 % (0.0-12.0); Neutrophils # (auto) 10.9 10 ^3/uL (1.6-8.6); White Blood Cell 13.4 10^3/uL (4.4-10.8)
[2023-06-11 05:51] LABS: Basophils % (auto) 0.7 % (0.0-2.0); Eosinophils % (auto) 2.2 % (0.0-7.0); Hematocrit 34.6 % (41.0-53.0); Lymphocytes % (auto) 10.5 % (10.0-50.0); Neutrophils % (auto) 81.1 % (37.0-80.0); Red Blood Cells 4.11 10^6/uL (4.5-5.90); Red Cell Distribution Width 15.6 % (11.8-14.3)
[2023-06-11 05:58] LABS: INR 1.5 (0.9-1.15); Partial Thromboplastin Time 42.9 SEC (24.5-34.5); Prothrombin Time 15.3 sec (9.3-11.8)
[2023-06-11 06:18] LABS: Alanine Aminotransferase 12 U/L (7-40); Albumin 3.7 g/dL (3.2-4.8); Alkaline Phosphatase 109 U/L (46-116); Anion Gap 7 (5-15); Aspartate Aminotransferase 24 U/L (13-40); BUN/Creatinine Ratio 21.5 (10.0-20.0); Bilirubin, Total 0.5 mg/dL (0.2-1.0); Blood Urea Nitrogen 38 mg/dL (9-23); Calcium 8.9 mg/dL (8.7-10.4); Carbon Dioxide 26 mmol/L (20-30); Chloride 103 mmol/L (98-107); Glucose 160 mg/dL (74-106); Potassium 4.2 mmol/L (3.5-5.1); Sodium 136 mmol/L (136-145)
[2023-06-11 06:19] LABS: Total Protein 7.4 g/dL (5.7-8.2)
[2023-06-11 07:50] LABS: COVID19 ANTIGEN SOFIA FIA NEGATIVE (NEGATIVE)
[2023-06-11 08:06] LABS: Rapid Influenza A Negative (Negative); Rapid Influenza B Negative (Negative)
[2023-06-11] MEDS: WARFARIN SODIUM 2 MG TAB PO ONE (17:00)
[2023-06-12 05:00] VITALS: BP 107/64; PULSE 56; RESP 20; TEMP 98.2; O2SAT 96
[2023-06-12 05:47] LABS: Basophils # (auto) 0.1 10 ^3/uL (0-0.2); Basophils % (auto) 0.6 % (0.0-2.0); Eosinophils # (auto) 0.3 10 ^3/uL (0-0.8); Eosinophils % (auto) 2.7 % (0.0-7.0); Hematocrit 36.1 % (41.0-53.0); Hemoglobin 11.6 g/dL (13.5-17.5); Lymphocytes # (auto) 1.7 10 ^3/uL (0.4-5.4); Mean Corpuscular Hgb Conc. 32.2 g/dL (32.0-36.0); Mean Corpuscular Volume 83.7 fL (80.0-100.0); Monocytes # (auto) 0.9 10 ^3/uL (0-1.3); Monocytes % (auto) 7.3 % (0.0-12.0); Neutrophils % (auto) 75.4 % (37.0-80.0); Red Blood Cells 4.32 10^6/uL (4.5-5.90); Red Cell Distribution Width 15.4 % (11.8-14.3)
[2023-06-12 05:59] LABS: Anion Gap 7 (5-15); Calcium 9.7 mg/dL (8.7-10.4); Carbon Dioxide 30 mmol/L (20-30); Chloride 99 mmol/L (98-107); Potassium 4.3 mmol/L (3.5-5.1); Sodium 136 mmol/L (136-145)
[2023-06-12 06:01] LABS: INR 1.32 (0.9-1.15); Partial Thromboplastin Time 37.9 SEC (24.5-34.5); Prothrombin Time 13.6 sec (9.3-11.8)
[2023-06-12 06:05] LABS: BUN/Creatinine Ratio 21.3 (10.0-20.0); Blood Urea Nitrogen 40 mg/dL (9-23); Glucose 164 mg/dL (74-106)
[2023-06-12 06:06] LABS: Magnesium 2.4 mg/dL (1.6-2.6)
[2023-06-12 08:00] VITALS: PULSE 88
[2023-06-12 08:57] VITALS: BP 123/69; PULSE 51; RESP 17; TEMP 98.2; O2SAT 98
[2023-06-12 12:39] VITALS: BP 95/50; PULSE 85; RESP 18; TEMP 98; O2SAT 92
[2023-06-12] MEDS ORDERED: WARFARIN SODIUM 1 MG TAB PO SCH (17:00)
[2023-06-12] MEDS: WARFARIN SODIUM 2 MG TAB PO ONE (17:50)
[2023-06-12 20:00] VITALS: PULSE 101; PULSE 96; RESP 18
[2023-06-12 22:00] VITALS: BP 117/76; PULSE 56; RESP 21; TEMP 98.3; O2SAT 91
[2023-06-13 05:00] VITALS: BP 119/67; PULSE 65; RESP 20; TEMP 98.6; O2SAT 94
[2023-06-13 06:19] LABS: Basophils # (auto) 0 10 ^3/uL (0-0.2); Basophils % (auto) 0.5 % (0.0-2.0); Eosinophils # (auto) 0.3 10 ^3/uL (0-0.8); Eosinophils % (auto) 2.6 % (0.0-7.0); Hematocrit 39.4 % (41.0-53.0); Hemoglobin 12.8 g/dL (13.5-17.5); Lymphocytes # (auto) 1.7 10 ^3/uL (0.4-5.4); Lymphocytes % (auto) 15.8 % (10.0-50.0); Mean Corpuscular Hemoglobin 27.4 pg (28.0-32.0); Mean Corpuscular Hgb Conc. 32.4 g/dL (32.0-36.0); Mean Corpuscular Volume 84.5 fL (80.0-100.0); Monocytes # (auto) 0.9 10 ^3/uL (0-1.3); Monocytes % (auto) 8.3 % (0.0-12.0); Neutrophils # (auto) 7.6 10 ^3/uL (1.6-8.6); Neutrophils % (auto) 72.8 % (37.0-80.0); Red Blood Cells 4.66 10^6/uL (4.5-5.90); Red Cell Distribution Width 15.1 % (11.8-14.3); White Blood Cell 10.5 10^3/uL (4.4-10.8)
[2023-06-13 06:32] LABS: INR 1.29 (0.9-1.15); Partial Thromboplastin Time 35.6 SEC (24.5-34.5); Prothrombin Time 13.3 sec (9.3-11.8)
[2023-06-13 06:52] LABS: Alanine Aminotransferase 15 U/L (7-40); Albumin 3.7 g/dL (3.2-4.8); Alkaline Phosphatase 110 U/L (46-116); Anion Gap 9 (5-15); Aspartate Aminotransferase 31 U/L (13-40); BUN/Creatinine Ratio 26.3 (10.0-20.0); Calcium 9.1 mg/dL (8.5-10.1); Carbon Dioxide 30 mmol/L (20-30); Chloride 99 mmol/L (98-107); Glucose 173 mg/dL (74-106); Potassium 4.4 mmol/L (3.5-5.1); Sodium 138 mmol/L (136-145)
[2023-06-13 06:53] LABS: Bilirubin, Total 0.5 mg/dL (0.2-1.0)
[2023-06-13 07:00] LABS: Blood Urea Nitrogen 50 mg/dL (9-23)
[2023-06-13 07:30] VITALS: PULSE 113; RESP 18
[2023-06-13 09:00] VITALS: BP 112/70; PULSE 85; RESP 18; TEMP 98.5; O2SAT 92
[2023-06-13 13:00] VITALS: BP 116/76; PULSE 81; RESP 20; TEMP 98.3; O2SAT 93
[2023-06-13] MEDS ORDERED: AUG875T PO (15:09)
[2023-06-13 15:19] LABS: Base Excess 1.1 mmol/L (-2.0-2.0)
[2023-06-13 16:47] VITALS: BP 106/65; PULSE 95; RESP 20; TEMP 98.4; O2SAT 94
[2023-06-13] MEDS ORDERED: WARFARIN SODIUM 2 MG TAB PO ONE (17:00)
== END 2023-06-13 16:55 | disposition home or self-care (01) | DRG 871 ==
LOC: ER 20:11 → EDBD 20:11 → TELE-WESTW 23:46 → TELE 23:46 → TELE-WESTW 06-09 02:58
PROVIDERS: ADMIT Internal Medicine Pulmonary Disease; ATTEND Internal Medicine Pulmonary Disease
DX: A41.9 Sepsis, unspecified organism (principal); I50.43 Acute on chronic combined systolic (congestive) and diastolic (congestive) heart failure; J15.69 Pneumonia due to other Gram-negative bacteria; J96.01 Acute respiratory failure with hypoxia; D68.9 Coagulation defect, unspecified; E03.9 Hypothyroidism, unspecified; E11.9 Type 2 diabetes mellitus without complications; I10 Essential (primary) hypertension; E78.5 Hyperlipidemia, unspecified; I48.91 Unspecified atrial fibrillation; Z20.822 Contact with and (suspected) exposure to COVID-19
CPT/HCPCS: 36415; 36600; 71045; 71250; 80048; 80053; 80061; 81001; 82805; 82962; 83036; 83605; 83735; 83880; 84443; 84484; 85007; 85025; 85027; 85610; 85730; 87040; 87426; 87804; 93005; 93306; 96365; 96375; 96376; 99291; G0378; J1815

== ENCOUNTER → 2023-06-24 | Outpatient (CLI) | payer OTHER ==
[~2023-06-24] MED LIST changes: -ALBU108A5 INH; +AUG875T PO; -BICA50TA13 PO; -GLIP10TA9 PO; -LEVO750T8 PO; -LINA5TAB; -LIRA18IN2; -LIS20T PO; +LOSA100T58 PO; -METF-372 PO; -RIV15T PO; +WARF-111 PO
[2023-06-24 10:58] LABS: Basophils # (auto) 0.1 10 ^3/uL (0-0.2); Eosinophils # (auto) 0.1 10 ^3/uL (0-0.8); Eosinophils % (auto) 2.1 % (0.0-7.0); Hemoglobin 10.9 g/dL (13.5-17.5); Mean Corpuscular Volume 85.1 fL (80.0-100.0); Monocytes # (auto) 0.5 10 ^3/uL (0-1.3); White Blood Cell 6.9 10^3/uL (4.4-10.8)
[2023-06-24 11:00] LABS: Basophils % (auto) 0.8 % (0.0-2.0); Hematocrit 34.4 % (41.0-53.0); Lymphocytes # (auto) 1.2 10 ^3/uL (0.4-5.4); Mean Corpuscular Hgb Conc. 31.7 g/dL (32.0-36.0); Monocytes % (auto) 7.2 % (0.0-12.0); Neutrophils # (auto) 5.1 10 ^3/uL (1.6-8.6); Neutrophils % (auto) 72.9 % (37.0-80.0); Red Blood Cells 4.04 10^6/uL (4.5-5.90); Red Cell Distribution Width 16.2 % (11.8-14.3)
[2023-06-24 11:49] LABS: Alanine Aminotransferase 33 U/L (7-40); Albumin 3.8 g/dL (3.2-4.8); Alkaline Phosphatase 102 U/L (46-116); Anion Gap 3 (5-15); Aspartate Aminotransferase 44 U/L (13-40); BUN/Creatinine Ratio 15.3 (10.0-20.0); Blood Urea Nitrogen 24 mg/dL (9-23); Carbon Dioxide 28 mmol/L (20-30); Chloride 103 mmol/L (98-107); Glucose 215 mg/dL (74-106); Potassium 5.2 mmol/L (3.5-5.1); Sodium 134 mmol/L (136-145)
[2023-06-24 11:50] LABS: Bilirubin, Total 0.5 mg/dL (0.2-1.0); Total Protein 7.7 g/dL (5.7-8.2)
== END | disposition home or self-care (01) ==
LOC: LAB 10:46
PROVIDERS: ATTEND Internal Medicine
DX: C61 Malignant neoplasm of prostate (principal)
CPT/HCPCS: 36415; 80053; 83615; 84153; 85025

== ENCOUNTER → 2023-09-27 | Outpatient (CLI) | payer OTHER ==
[~2023-09-27] MED LIST changes: +LOSA-535 PO; -LOSA100T58 PO
[2023-09-27 12:27] LABS: Basophils # (auto) 0 10 ^3/uL (0-0.2); Basophils % (auto) 0.5 % (0.0-2.0); Eosinophils # (auto) 0.3 10 ^3/uL (0-0.8); Eosinophils % (auto) 4.2 % (0.0-7.0); Hematocrit 35.5 % (41.0-53.0); Hemoglobin 11.6 g/dL (13.5-17.5); Lymphocytes # (auto) 1.4 10 ^3/uL (0.4-5.4); Lymphocytes % (auto) 21.6 % (10.0-50.0); Mean Corpuscular Hemoglobin 27.4 pg (28.0-32.0); Mean Corpuscular Hgb Conc. 32.7 g/dL (32.0-36.0); Mean Corpuscular Volume 83.6 fL (80.0-100.0); Monocytes # (auto) 0.4 10 ^3/uL (0-1.3); Monocytes % (auto) 6.6 % (0.0-12.0); Neutrophils # (auto) 4.3 10 ^3/uL (1.6-8.6); Neutrophils % (auto) 67.1 % (37.0-80.0); Nucleated Red Blood Cells % 0.1 %; Red Blood Cells 4.24 10^6/uL (4.5-5.90); Red Cell Distribution Width 16.6 % (11.8-14.3); White Blood Cell 6.4 10^3/uL (4.4-10.8)
[2023-09-27 12:45] LABS: Alanine Aminotransferase 14 U/L (7-40); Alkaline Phosphatase 104 U/L (46-116); Anion Gap 7 (5-15); Aspartate Aminotransferase 20 U/L (13-40); BUN/Creatinine Ratio 23.4 (10.0-20.0); Bilirubin, Total 0.5 mg/dL (0.2-1.0); Blood Urea Nitrogen 33 mg/dL (9-23); Calcium 9.5 mg/dL (8.5-10.1); Carbon Dioxide 24 mmol/L (20-30); Chloride 103 mmol/L (98-107); Glucose 251 mg/dL (74-106); Potassium 4.8 mmol/L (3.5-5.1); Sodium 134 mmol/L (136-145); Total Protein 7.6 g/dL (5.7-8.2)
[2023-09-28 08:08] LABS: Testosterone 5 ng/dL (264-916)
== END | disposition home or self-care (01) ==
LOC: LAB 11:37
PROVIDERS: ATTEND Student in an Organized Health Care Education/Training Program
DX: C61 Malignant neoplasm of prostate (principal); M05.79 Rheumatoid arthritis with rheumatoid factor of multiple sites without organ or systems involvement; E55.9 Vitamin D deficiency, unspecified; Z79.899 Other long term (current) drug therapy
CPT/HCPCS: 36415; 80053; 84153; 84402; 84403; 85025

== ENCOUNTER → 2023-11-16 | Outpatient (CLI) | payer OTHER ==
[2023-11-16 14:45] LABS: Creatinine, Urine 45.36 mg/dL (30.0-125.0)
== END | disposition home or self-care (01) ==
LOC: LAB 13:25
PROVIDERS: ATTEND Internal Medicine
DX: E11.22 Type 2 diabetes mellitus with diabetic chronic kidney disease (principal); N18.9 Chronic kidney disease, unspecified
CPT/HCPCS: 36415; 82043; 82570

== ENCOUNTER → 2024-01-05 | Outpatient (CLI) | payer OTHER ==
[2024-01-05 11:59] LABS: Basophils # (auto) 0 10 ^3/uL (0-0.2); Basophils % (auto) 0.8 % (0.0-2.0); Eosinophils # (auto) 0.2 10 ^3/uL (0-0.8); Eosinophils % (auto) 3.9 % (0.0-7.0); Hematocrit 34.8 % (41.0-53.0); Hemoglobin 11.5 g/dL (13.5-17.5); Lymphocytes # (auto) 1.4 10 ^3/uL (0.4-5.4); Lymphocytes % (auto) 22.4 % (10.0-50.0); Mean Corpuscular Hemoglobin 27.9 pg (28.0-32.0); Mean Corpuscular Volume 84.6 fL (80.0-100.0); Monocytes # (auto) 0.4 10 ^3/uL (0-1.3); Monocytes % (auto) 6.7 % (0.0-12.0); Neutrophils % (auto) 66.2 % (37.0-80.0); Platelet Count (auto) 158 10^3/uL (140-450); Red Blood Cells 4.12 10^6/uL (4.5-5.90); Red Cell Distribution Width 16.8 % (11.8-14.3); White Blood Cell 6.1 10^3/uL (4.4-10.8)
[2024-01-05 12:28] LABS: Alanine Aminotransferase 13 U/L (7-40); Albumin 4.1 g/dL (3.2-4.8); Alkaline Phosphatase 114 U/L (46-116); Anion Gap 8 (5-15); Aspartate Aminotransferase 20 U/L (13-40); BUN/Creatinine Ratio 20.6 (10.0-20.0); Bilirubin, Total 0.6 mg/dL (0.2-1.0); Blood Urea Nitrogen 29 mg/dL (9-23); Calcium 9.8 mg/dL (8.7-10.4); Carbon Dioxide 25 mmol/L (20-31); Chloride 102 mmol/L (98-107); Glucose 236 mg/dL (74-106); Sodium 135 mmol/L (136-145); Total Protein 7.8 g/dL (5.7-8.2)
[2024-01-06 08:06] LABS: PSA Free 1.94 ng/mL; Prostate Specific Antigen 8.2 ng/mL (0.0-4.0)
== END | disposition home or self-care (01) ==
LOC: LAB 11:25
PROVIDERS: ATTEND Student in an Organized Health Care Education/Training Program
DX: C61 Malignant neoplasm of prostate (principal)
CPT/HCPCS: 36415; 80053; 84153; 84154; 85025

== ENCOUNTER 2024-02-21 16:34 | Inpatient (IN) | payer OTHER ==
[~2024-02-21] VITALS: Ht 165.1 cm; Wt 93.7 kg
--- NOTE | 2024-02-21 17:27 | ED.PDOC ---
SOB-HPI HPI Comments HPI: Poor Historian. 83-year-old male presents to emergency department for dry cough for the last six months that is getting worse lately. He has been evaluated for this in the past multiple times without any improvement of his symptoms. Denies any other associated symptoms. I was later informed by orthopedic tech that the patient has a chest x-ray done earlier today which shows the following impression of the findings: Small right pleural effusion right lower lung zone pulmonary opacities may represent atelectasis or pneumonia. Recommend clinical and biochemical correlation. Vitals: temp: 98.2 RR: 18 02 sat: 97% on RA heart rate: 106 BP: 148/74 PMH: DM, HTN, HLD, prostate cancer , AFIB, thyroid disease PSH: denies social history: denies tobacco use, denies ETOH use, denies drug use medications: unknown allergies: nkda REVIEW OF SYSTEMS: CONSTITUTIONAL: Denies acute: fever, diaphoresis, chills, generalized weakness. HEAD: Denies acute: headache, photophobia Eyes: Denies acute: Double vision, vision loss, eye pain, eye discharge. EARS: Denies acute: tinnitus, hearing loss, ear discharge, ear pain, THROAT: Denies acute: sore throat, swelling, difficulty swallowing , pain with swallowi ng, change in voice. NECK: Denies acute: neck pain, neck swelling, stiff neck. HEART: Denies acute : chest pain, palpitations, LUNGS: Denies acute: SOB, wheezing, hemoptysis ABDOMEN: Denies acute: abdominal pain, Nausea, Vomiting, diarrhea, melena , hematemesis, hematochezia SKIN: Denies acute: rash, redness, lesions, itchiness. EXTREMITIES: Denies acute: calf pain, numbness, tingling, weakness, denies pain in extremity. Denies acute: Low back pain. Neuro: Denies acute: focal neurological deficit, motor or sensory focal neurological deficit, tremors, seizure like activity, confusion, dizziness, change in mental status, loss of bowel or bladder function, cauda equina like symptoms. : Denies acute: dysuria, hematuria, flank pain, increase in urinary frequency. PSYCH: Denies acute: hallucination, suicidal ideation, homicidal ideation. PHYSICAL EXAM: General: no acute distress, awake and alert. Head: normocephalic, atraumatic. Neck: supple, trachea is midline, no swelling. Throat: Normal phonation. Eyes:, no erythema, no purulent discharge, no proptosis, no icterus. Heart: regular rate, regular rhythm, no significant murmur appreciated. Lungs: no apparent respiratory distress, Able to speak in full sentences. No wheezing, no rhonchi, no crackles. No stridors Clear to auscultation bilaterally. Abdomen: non tender to palpation, non distended, soft, no guarding, no rebound, + bowel sounds. Neuro: Awake, Alert, oriented to name, self, situation, follows commands GCS=15. Speech is normal. Skin: no petechia, no purpura, no cyanosis, non-pale, not jaundice. Lower extremities: --trace bilateral - Pitting edema no deformity, no focal swelling, no calf TTP. Makes eye contact. moves all four extremities. Face: no apparent facial droop. Time Seen by MD: 16:41 Primary Care Provider: UNKNOWN Reviewed notes: Nurses Notes, Allergies Information Source: Patient Past Medical History PAST MEDICAL HISTORY: AFIB, Cancer, DM, High Lipids, HTN, Thyroid Surgical History: Denies all surgeries Family History Family History: Unknown Social History Smoker: Non-Smoker Alcohol: Denies ETOH Use Drugs: Denies Drug Use Lives In: Home Was a procedure done? Was a procedure done?: No Differential Dx Differential Diagnosis: Other (DDx include ACS, unstable angina, anxiety, PE, pneumothroax, neoplasm, cardiac ischemia, COPD, asthma, CHF, pleural effusion, tobacco abuse, pneumonia, hypoxia, hypercapnia, anemia., infection/sepsis., pulmonary edema. Asthma, Cardiac tamponade, infection.) X-Ray, Labs, Meds, VS Vital Signs Date Time Temp Pulse Resp B/P (MAP) Pulse Ox O2 Delivery O2 Flow Rate FiO2 02/21/24 20:28 132 20 152/93 (112) 93 02/21/24 17:37 98.2 106 18 148/74 (98) 97 Lab Test 02/21/24 18:42 02/21/24 18:31 Range/Units Blood Gas Specimen Type Arterial Blood Gas Sample Site Right radial Blood Gas Patient Temperature 37.0 Arterial Blood Date Drawn [id number] Arterial Blood pH 7.402 7.350-7.450 Arterial Blood Partial Pressure CO2 37.3 35.0-48.0 mmHg Arterial Blood Partial Pressure O2 71.1 L 83.0-108.0 mmHg Arterial Blood HCO3 22.7 21.0-28.0 mmol/L Arterial Blood Oxygen Saturation 93.0 L 94.0-98.0 % Arterial Blood Base Excess -1.7 -2.0-3.0 mmol/L Arterial Blood Oxyhemoglobin 91.8 L 94.0-98.0 % Arterial Blood Carboxyhemoglobin 0.9 0.5-1.5 % Arterial Blood Methemoglobin 0.4 0.0-1.5 % Lm Test Modified Blood Gas Total Hemoglobin 13.10 L 13.5-17.5 g/dL Blood Gas Modality Room air FiO2 % 21.0 White Blood Count 7.3 4.4-10.8 10^3/uL Red Blood Count 4.45 L 4.5-5.90 10^6/uL Hemoglobin 12.2 L 13.5-17.5 g/dL Hematocrit 37.2 L 41.0-53.0 % Mean Corpuscular Volume 83.6 80.0-100.0 fL Mean Corpuscular Hemoglobin 27.5 L 28.0-32.0 pg Mean Corpuscular Hemoglobin Concent 32.9 32.0-36.0 g/dL Red Cell Distribution Width 16.4 H 11.8-14.3 % Platelet Count 203 140-450 10^3/uL Mean Platelet Volume 7.3 6.9-10.8 fL Neutrophils (%) (Auto) 71.4 37.0-80.0 % Lymphocytes (%) (Auto) 14.9 10.0-50.0 % Monocytes (%) (Auto) 8.8 0.0-12.0 % Eosinophils (%) (Auto) 4.0 0.0-7.0 % Basophils (%) (Auto) 0.9 0.0-2.0 % Neutrophils # (Auto) 5.2 1.6-8.6 10 ^3/uL Lymphocytes # (Auto) 1.1 0.4-5.4 10 ^3/uL Monocytes # (Auto) 0.6 0-1.3 10 ^3/uL Eosinophils # (Auto) 0.3 0-0.8 10 ^3/uL Basophils # (Auto) 0.1 0-0.2 10 ^3/uL Nucleated Red Blood Cells 0.1 % Sodium Level 139 136-145 mmol/L Potassium Level 5.0 3.5-5.1 mmol/L Chloride Level 105 98-107 mmol/L Carbon Dioxide Level 23 20-31 mmol/L Anion Gap 11 5-15 Blood Urea Nitrogen 25 H 9-23 mg/dL Creatinine 1.26 0.700-1.30 mg/dL Glomerular Filtration Rate Calc 57 >90 mL/min BUN/Creatinine Ratio 19.8 10.0-20.0 Serum Glucose 151 H 74-106 mg/dL Calcium Level 9.5 8.7-10.4 mg/dL Total Bilirubin 0.4 0.2-1.0 mg/dL Aspartate Amino Transferase (AST) 32 13-40 U/L Alanine Aminotransferase (ALT) 18 7-40 U/L Alkaline Phosphatase 126 H 46-116 U/L Troponin I High Sensitivity 17 </=54 ng/L B-Type Natriuretic Peptide 395.34 0-100 pg/mL Total Protein 7.8 5.7-8.2 g/dL Albumin 4.0 3.2-4.8 g/dL [place] [id number] Ph: [phone] DIAGNOSTIC IMAGING Diagnostic Imaging Report : [id number] Signed PATIENT: PATRIZIA ANAND ACCT: [id number] UNIT: [id number] : 1940 LOC: ROOM / BED: / AGE / SEX: 83 / M ADM STATUS: REG CLI SERVICE 1510 ORDERING PHYSICIAN: GRAYSON TRAN PROCEDURE(s): CXR2 - CHEST TWO VIEWS ROUTINE REASON: R/O PNA ORDER NUMBER(s): [id number], ACCESSION NUMBER(s): [id number] Procedure: XY CHEST TWO VIEWS ROUTINE 02/21/2024 03:14 PM Indication: R/O PNA Comparison: None TECHNIQUE: XY CHEST TWO VIEWS ROUTINE FINDINGS: Medical devices: None. Cardiomediastinal: The heart is normal in size. Pulmonary vasculature is within normal limits. Atherosclerotic calcification of the aortic arch noted. Lungs: Small left pleural effusion and left lower lung zone pulmonary opacities. No pneumothorax. Bones/soft tissues: No acute abnormality is noted. Thin flowing ossification in the thoracic spine at several levels that may represent syndesmophytes related to ankylosing spondylitis/seronegative spondyloarthropathies or diffuse idiopathic skeletal hyperostosis. Recommend clinical and biochemical correlation. IMPRESSION: 1. Small right pleural effusion right lower lung zone pulmonary opacities may represent atelectasis or pneumonia. Recommend clinical and biochemical correlation. ATED BY: JOHANNY GARCIA MD DICTATED DATE/TIME: 02/21/24 1535 SIGNED BY: JOHANNY GARCIA MD SIGNED DATE/TIME: 02/21/24 1535 CC: Time of 1ST Reevaluation: 22:03 Reevaluation 1ST: Unchanged Patient Education/Counseling: Diagnosis, Treatment Family Education/Counseling: No Family Present Comments Patient presented with the above HPI.---dyspnea---workup was initiated. patient was found with the above mentioned diagnosis. Patient was given: Rocephin Patient ED course and VS have been stabilized. Patient has been reassessed in the ED and remained in a stable condition. Pertinent incidental findings were discussed with the patient and/or family. Patient/family voices understanding and is agreeable with plan. Patient has been observed in the ED adequate length of time to insure improvement/stability. patient was admitted to the medicine team for further evaluation and treatment of their presentation. All the reports of any imaging studies that were ordered by myself were reviewed by myself. Departure 1 Departure Time of Disposition: 18:36 Impression: Primary Impression: Pneumonia Additional Impression: Hypoxemia Disposition: ADMITTED INPATIENT Admit to: Tele Condition: Guarded Discharged With: Self Critical Care Note Critical Care Time?: No Heart Score Heart Score: Heart Score Response (Comments) Value History Slightly Suspicious 0 EKG Normal 0 Age >65 2 Risk Factors >3 or Hx ASHD 2 Troponin Normal limit 0 Total 4 I personally scribed for MICHAEL ROBBINS DO ([email or web address]) on 02/21/24 at 17:26. Electronically submitted by Gildardo Dominguez ([email or web address]). I personally scribed for MICHAEL ROBBINS DO ([email or web address]) on 02/21/24 at 17:43. Electronically submitted by Gildardo Dominguez ([email or web address]). I personally scribed for MICHAEL ROBBINS DO ([email or web address]) on 02/21/24 at 20:01. Electronically submitted by Gildardo Dominguez ([facility] [place] MICHAEL ROBBINS DO Feb 21, 2024 17:26
[2024-02-21 18:48] LABS: Basophils # (auto) 0.1 10 ^3/uL (0-0.2); Basophils % (auto) 0.9 % (0.0-2.0); Eosinophils # (auto) 0.3 10 ^3/uL (0-0.8); Hematocrit 37.2 % (41.0-53.0); Hemoglobin 12.2 g/dL (13.5-17.5); Lymphocytes # (auto) 1.1 10 ^3/uL (0.4-5.4); Lymphocytes % (auto) 14.9 % (10.0-50.0); Mean Corpuscular Hemoglobin 27.5 pg (28.0-32.0); Mean Corpuscular Hgb Conc. 32.9 g/dL (32.0-36.0); Mean Corpuscular Volume 83.6 fL (80.0-100.0); Monocytes # (auto) 0.6 10 ^3/uL (0-1.3); Monocytes % (auto) 8.8 % (0.0-12.0); Neutrophils # (auto) 5.2 10 ^3/uL (1.6-8.6); Neutrophils % (auto) 71.4 % (37.0-80.0); Nucleated Red Blood Cells % 0.1 %; Platelet Count (auto) 203 10^3/uL (140-450); Red Blood Cells 4.45 10^6/uL (4.5-5.90); Red Cell Distribution Width 16.4 % (11.8-14.3); White Blood Cell 7.3 10^3/uL (4.4-10.8)
[2024-02-21 18:51] LABS: Base Excess -1.7 mmol/L (-2.0-3.0)
[2024-02-21 19:06] LABS: Alanine Aminotransferase 18 U/L (7-40); Alkaline Phosphatase 126 U/L (46-116); Anion Gap 11 (5-15); Aspartate Aminotransferase 32 U/L (13-40); BUN/Creatinine Ratio 19.8 (10.0-20.0); Bilirubin, Total 0.4 mg/dL (0.2-1.0); Blood Urea Nitrogen 25 mg/dL (9-23); Calcium 9.5 mg/dL (8.7-10.4); Carbon Dioxide 23 mmol/L (20-31); Chloride 105 mmol/L (98-107); Glucose 151 mg/dL (74-106); Sodium 139 mmol/L (136-145); Total Protein 7.8 g/dL (5.7-8.2)
[2024-02-21] MEDS ORDERED: ACETAMINOPHEN 325 MG TAB PO PRN (20:45)
[2024-02-21] MEDS ORDERED: NITROGLYCERIN 0.4 MG SL TAB SL PRN (20:45)
[2024-02-21] MEDS ORDERED: MORPHINE SULFATE INJ 2 MG/ml SYRG IV PRN ×2 (20:45)
[2024-02-21 23:30] VITALS: BP 149/88; PULSE 111; RESP 18; TEMP 97.7; O2SAT 95
[2024-02-22] VITALS (12 sets, daily range): BP systolic 137–145; BP diastolic 78–96; PULSE 69–111; RESP 16–20; TEMP 97.4–98; O2SAT 92–99
[2024-02-22] MEDS: SODIUM CHLORIDE 0.9% 1,000 ML IV SCH (00:52)
[2024-02-22] MEDS: ENOXAPARIN SOD 40 MG/0.4 ML SYRINGE SC SCH (00:54)
[2024-02-22] MEDS: cefTRIAXone 1GM/50ML D5W 50 ML IV ONE (00:55)
[2024-02-22] MEDS ORDERED: DEXTROSE (50%) 50ML SYRG IV PRN (02:15)
--- NOTE | 2024-02-22 02:26 | DVHHPRES ---
History of Present Illness Resident Creating Document: CASSIE WHITE RESIDENT Reason for Visit: Productive cough and shortness of breaths for 2 days History of Present Illness 83-year-old male patient with history of type 2 diabetes, hypertension, hyperlipidemia, prostate cancer (history of treatment unclear), atrial fibrillation, thyroid disease, and COPD who presents with complaints of productive cough and shortness of breaths over the past 2 days. Symptoms began insidiously on Tuesday and have progressively worsened. The cough is productive, and there is associated dyspnea but no reported fever chills hemoptysis or chest pain. The patient has a history of similar presentation approximately 1 year ago when he has a admitted for pneumonia and COPD exacerbation. He denies significant exposure to known respiratory irritants but reports frailty and reduced activity due to his current illness. Upon arrival at the emergency department he was administered rehabilitation therapy with symptomatic improvement. A chest ray revealed a mild small pleural effusion and findings concerning for pneumonia. The patient denies orthopnea paroxysmal nocturnal dyspnea, leg pain or calf swelling. He lives alone but he is supported by his daughter who resides nearby. Past Medical History Type 2 diabetes mellitus Hypertension Hyperlipidemia Prostate cancer Atrial fibrillation Thyroid disease COPD Past Surgical History No reported Family History: None Smoke: Quit ALCOHOL: none Drugs: None Lives: Alone Review of Systems Review of Systems General: Frail appearance, no fever or chills Eyes: No: Pain, Vision change, Conjunctivae inflammation, Eyelid inflammation, Other, Redness ENT: No: Ear pain, Ear discharge, Nose pain, Nose discharge, Nose congestion, Mouth pain, Mouth swelling, Throat pain, Throat swelling, Other Respiratory: No Wheezing, Hemoptysis, Pleuritic Pain, Sputum, Wheezing, Other Cardiovascular: Yes: Irregular rhythm, no chest pain or palpitations No: Chest Pain, Palpitations, Orthopnea, Paroxysmal Noc. Dyspnea, Edema, Lt Headedness, Other Gastrointestinal: No: Nausea, Vomiting, Abdominal Pain, Diarrhea, Constipation, Melena, Hematochezia, Other Musculoskeletal: Mild peripheral edema in lower extremity Neurological:; No: Weakness, Numbness, Incoordination, Change in speech, Confusion, Seizures Allergies: Coded Allergies: NO KNOWN ALLERGIES (Unverified , 11/01/16) Medications Current Medications Medications Dose Ordered Sig/Yosvany Route Start Time Stop Time Status Last Admin Dose Admin Sodium Chloride 1,000 ml @ 60 mls/hr [id number] IV 02/21/24 20:45 02/22/24 00:52 60 MLS/HR Acetaminophen 650 mg Q6HP PRN PO 02/21/24 20:45 Morphine Sulfate 2 mg Q4HPRN PRN IV 02/21/24 20:45 Nitroglycerin 0.4 mg Q5MINP PRN SL 02/21/24 20:45 Morphine Sulfate 2 mg Q30M PRN IV 02/21/24 20:45 Azithromycin 250 ml @ 125 mls/hr DAILY@2200 IV 02/22/24 02:00 Atorvastatin Calcium 40 mg HS PO 02/22/24 22:00 Levothyroxine Sodium 75 mcg QAM@0600 PO 02/22/24 06:00 Warfarin Sodium RX PROTOCOL PER PHARMACY PO 02/22/24 01:30 UNV Metoprolol Tartrate 25 mg BID PO 02/22/24 10:00 Losartan Potassium 100 mg DAILY PO 02/23/24 10:00 Ipratropium [place] 0.5 mg Q6HWA NEB 02/22/24 06:00 UNV Levalbuterol HCl 0.625 mg Q6HWA NEB 02/22/24 06:00 UNV Exam Vital Signs Vital Signs Date Time Temp Pulse Resp B/P (MAP) Pulse Ox O2 Delivery O2 Flow Rate FiO2 02/22/24 01:00 97.4 74 18 145/79 (101) 95 97.4 Exam Examination General Appearance: Well-developed but frail elderly male in no acute distress pleasant conversation. Alert, Oriented X3, Cooperative, Vital signs: Blood pressure 152/93, heart rate irregularly irregular, respiratory rate normal and afebrile Respiratory: Clear to auscultation, Normal air movement sterilization Cardiovascular: Regular rhythm, Normal S1, Normal S2 Abdominal: Normal bowel sounds Extremities: 1-2+ bilateral lower extremity edema Skin: No rashes, No breakdown Labs/Xrays Labs Test 02/21/24 18:42 02/21/24 18:31 Range/Units Blood Gas Specimen Type Arterial Blood Gas Sample Site Right radial Blood Gas Patient Temperature 37.0 Arterial Blood Date Drawn [id number] Arterial Blood pH 7.402 7.350-7.450 Arterial Blood Partial Pressure CO2 37.3 35.0-48.0 mmHg Arterial Blood Partial Pressure O2 71.1 L 83.0-108.0 mmHg Arterial Blood HCO3 22.7 21.0-28.0 mmol/L Arterial Blood Oxygen Saturation 93.0 L 94.0-98.0 % Arterial Blood Base Excess -1.7 -2.0-3.0 mmol/L Arterial Blood Oxyhemoglobin 91.8 L 94.0-98.0 % Arterial Blood Carboxyhemoglobin 0.9 0.5-1.5 % Arterial Blood Methemoglobin 0.4 0.0-1.5 % Lm Test Modified Blood Gas Total Hemoglobin 13.10 L 13.5-17.5 g/dL Blood Gas Modality Room air FiO2 % 21.0 White Blood Count 7.3 4.4-10.8 10^3/uL Red Blood Count 4.45 L 4.5-5.90 10^6/uL Hemoglobin 12.2 L 13.5-17.5 g/dL Hematocrit 37.2 L 41.0-53.0 % Mean Corpuscular Volume 83.6 80.0-100.0 fL Mean Corpuscular Hemoglobin 27.5 L 28.0-32.0 pg Mean Corpuscular Hemoglobin Concent 32.9 32.0-36.0 g/dL Red Cell Distribution Width 16.4 H 11.8-14.3 % Platelet Count 203 140-450 10^3/uL Mean Platelet Volume 7.3 6.9-10.8 fL Neutrophils (%) (Auto) 71.4 37.0-80.0 % Lymphocytes (%) (Auto) 14.9 10.0-50.0 % Monocytes (%) (Auto) 8.8 0.0-12.0 % Eosinophils (%) (Auto) 4.0 0.0-7.0 % Basophils (%) (Auto) 0.9 0.0-2.0 % Neutrophils # (Auto) 5.2 1.6-8.6 10 ^3/uL Lymphocytes # (Auto) 1.1 0.4-5.4 10 ^3/uL Monocytes # (Auto) 0.6 0-1.3 10 ^3/uL Eosinophils # (Auto) 0.3 0-0.8 10 ^3/uL Basophils # (Auto) 0.1 0-0.2 10 ^3/uL Nucleated Red Blood Cells 0.1 % Sodium Level 139 136-145 mmol/L Potassium Level 5.0 3.5-5.1 mmol/L Chloride Level 105 98-107 mmol/L Carbon Dioxide Level 23 20-31 mmol/L Anion Gap 11 5-15 Blood Urea Nitrogen 25 H 9-23 mg/dL Creatinine 1.26 0.700-1.30 mg/dL Glomerular Filtration Rate Calc 57 >90 mL/min BUN/Creatinine Ratio 19.8 10.0-20.0 Serum Glucose 151 H 74-106 mg/dL Calcium Level 9.5 8.7-10.4 mg/dL Total Bilirubin 0.4 0.2-1.0 mg/dL Aspartate Amino Transferase (AST) 32 13-40 U/L Alanine Aminotransferase (ALT) 18 7-40 U/L Alkaline Phosphatase 126 H 46-116 U/L Troponin I High Sensitivity 17 </=54 ng/L B-Type Natriuretic Peptide 395.34 0-100 pg/mL Total Protein 7.8 5.7-8.2 g/dL Albumin 4.0 3.2-4.8 g/dL Assessment/Plan Assessment/Plan ?Sepsis due to Pneumonia with small pleural effusion Ceftriaxone 1 g IV Q 24 hours Azithromycin 500 mg IV Bilateral lower extremity edema likely due to heart failure preserved ejection fraction exacerbation NYHA III Furosemide 20 mg IV p.r.n. for symptomatic relief Monitor BNP Shortness of bed likely due to COPD exacerbation likely triggered by pneumonia status post nebulization Med neb -methylprednisolone sodium succinate 20 mg b.i.d. -levalbuterol 0.625 mg q.6 -ipratropium bromide 0.5 mg q.6 hours Persistent/Permanent Atrial fibrillation CHADS VASC 4 points HASBLED 3 points Metoprolol tartrate 25 mg b.i.d. p.o. -warfarin Hypothyroidism Levothyroxine sodium 75 mcg q.a.m. Type 2 diabetes, under control Hypertension Losartan potassium 100 mg daily p.o. History of Chronic kidney disease Monitor Type 1 obesity Lifestyle modification counseling, encouraged improving dietary habits and physical activity Case discussed with Dr. Salomon Goals of care discussed with the patient for 34 minutes Code status: Full code Plan discussed with: Patient My Orders Orders - CASSIE WHITE RESIDENT Procedure Category Date Status Time Admit ADMIT 02/21/24 Transmitted 20:43 Allergies HÉCTOR 02/21/24 In Process 20:43 Code Status CODE 02/21/24 Transmitted 20:43 2 Gm Sodium Diet DIET 02/22/24 Transmitted Breakfast Sodium Chloride 0.9% PHA 02/21/24 In Process 20:45 Oxygen Per Hour RT 02/21/24 Transmitted 20:43 Complete Blood Count LAB 02/22/24 Logged 04:00 Comprehensive LAB 02/22/24 Logged Metabolic Panel 04:00 Cardiac DIET 02/22/24 Transmitted Diet-2gna,Lofat,Lochol Breakfast Echo 2d Mode Cardiac US 02/21/24 Logged DOP 20:43 Acetaminophen Tablet PHA 02/21/24 In Process (Tylenol Tablet) 20:45 Morphine Sulfate PHA 02/21/24 In Process Injection 20:45 Nitroglycerin PHA 02/21/24 In Process Sublingual (Ntrostat 20:45 Morphine Sulfate PHA 02/21/24 In Process Injection 20:45 Oxygen By Nasal RT 02/21/24 Transmitted Cannula 20:43 Stat Ekg For Chest [facility] [place] 02/21/24 In Process Pain 20:43 Notify Md Of Changes [facility] [place] 02/21/24 In Process From Base 20:43 Route Returner For [facility] [place] 02/21/24 In Process 24 Hours 20:43 Emergency Dysrhythmia [facility] [place] 02/21/24 In Process Protocol 20:43 Rhythm Strips Once [facility] [place] 02/21/24 In Process Every Shift 20:43 Date of Service: Feb 21, 2024 Billing Provider: SRINIVASAN SALOMON MD Common Visit Codes: 46422-[id number] INP/OBS CARE (HIGH) Secondary Visit Codes: 00930-[id number] CARE PLAN 30 MINUTES CASSIE WHITE RESIDENT Feb 22, 2024 02:26 SRINIVASAN SALOMON MD Feb 22, 2024 09:13
[2024-02-22 03:23] LABS: Urine Bacteria None Seen /hpf (None Seen); Urine WBC None Seen /hpf (0 - 3)
[2024-02-22] MEDS: methylPREDNISolone SOD SUCC 40 MG/ML VL IV ONE (03:28)
[2024-02-22] MEDS: FUROSEMIDE 20 MG/2 ML VIAL IV ONE (03:29)
[2024-02-22] MEDS: METOPROLOL TARTRATE 25 MG TAB PO ONE (03:29)
[2024-02-22] MEDS: AZITHROMYCIN 500MG/ 250ML 250 ML IV SCH (03:30)
[2024-02-22] MEDS: LOSARTAN POTASSIUM 50 MG TAB PO ONE (03:30)
[2024-02-22] MEDS: ATORVASTATIN 20 MG TAB PO ONE (03:30)
[2024-02-22 03:37] LABS: Urine Blood TRACE /uL (Negative); Urine Clarity Clear (Clear); Urine Color Light-Yellow (Yellow); Urine Protein, UAD 1+ (Negative); Urine Urobilinogen Normal (Negative); Urine pH 6.5 (5.0-9.0)
[2024-02-22 03:45] LABS: Amphetamine Screen, Urine Neg (NEGATIVE); Barbiturate Scree,Urine Neg (NEGATIVE); Benzodiazephine Screen, Urine Neg (NEGATIVE); Cannabinoid Screen, Urine Neg (NEGATIVE); Cocaine Screen, Urine Neg (NEGATIVE); Opiate Scree,Urine Neg (NEGATIVE); Phencyclidine Screen, Urine Neg (NEGATIVE)
[2024-02-22] MEDS: ACCU-CHEK COMFORT CURVE STRIP VI SCH (04:33)
[2024-02-22] MEDS: InsuLIN REG 1unit/0.01ml Soln (100units/ml) SC SCH (04:35)
[2024-02-22 05:17] LABS: Basophils # (auto) 0.1 10 ^3/uL (0-0.2); Basophils % (auto) 0.8 % (0.0-2.0); Eosinophils # (auto) 0.3 10 ^3/uL (0-0.8); Eosinophils % (auto) 4.7 % (0.0-7.0); Hematocrit 37.9 % (41.0-53.0); Hemoglobin 12.6 g/dL (13.5-17.5); Lymphocytes # (auto) 1.1 10 ^3/uL (0.4-5.4); Lymphocytes % (auto) 17.9 % (10.0-50.0); Mean Corpuscular Hemoglobin 27.8 pg (28.0-32.0); Mean Corpuscular Hgb Conc. 33.3 g/dL (32.0-36.0); Mean Corpuscular Volume 83.7 fL (80.0-100.0); Monocytes # (auto) 0.5 10 ^3/uL (0-1.3); Monocytes % (auto) 7.6 % (0.0-12.0); Neutrophils # (auto) 4.3 10 ^3/uL (1.6-8.6); Platelet Count (auto) 206 10^3/uL (140-450); Red Blood Cells 4.53 10^6/uL (4.5-5.90); White Blood Cell 6.3 10^3/uL (4.4-10.8)
[2024-02-22 05:30] LABS: INR 1.82 (0.9-1.15); Prothrombin Time 18.5 sec (9.3-11.8)
[2024-02-22 05:32] LABS: Alanine Aminotransferase 17 U/L (7-40); Albumin 4.1 g/dL (3.2-4.8); Alkaline Phosphatase 114 U/L (46-116); Anion Gap 8 (5-15); Aspartate Aminotransferase 25 U/L (13-40); BUN/Creatinine Ratio 18.3 (10.0-20.0); Bilirubin, Total 0.5 mg/dL (0.2-1.0); Blood Urea Nitrogen 22 mg/dL (9-23); Carbon Dioxide 27 mmol/L (20-31); Chloride 103 mmol/L (98-107); Glucose 193 mg/dL (74-106); Potassium 4.3 mmol/L (3.5-5.1); Sodium 138 mmol/L (136-145)
[2024-02-22] MEDS: LEVOTHYROXINE SODIUM 25 MCG TAB PO SCH (06:18)
[2024-02-22] MEDS: IPRATROPIUM BROM 0.5 MG/2.5ML INH SOL NEB SCH (07:05)
[2024-02-22] MEDS: LEVALBUTEROL HCL 1.25 MG/3 ML NEB NEB SCH (07:06)
[2024-02-22] MEDS: FUROSEMIDE 20 MG/2 ML VIAL IV SCH (10:00)
[2024-02-22] MEDS: METOPROLOL TARTRATE 25 MG TAB PO SCH (10:54)
[2024-02-22] MEDS ORDERED: POTA-36 PO (12:00)
[2024-02-22] MEDS ORDERED: FURO1TAB33 PO (12:00)
[2024-02-22] MEDS ORDERED: AZIT-74 PO (12:00)
[2024-02-22] MEDS ORDERED: PRED20TA2 PO (12:00)
[2024-02-22] MEDS ORDERED: ALBUAER3 IN (12:00)
--- NOTE | 2024-02-22 12:02 | DVHDS2 ---
Discharge Summary Date of Admission Feb 21, 2024 at 20:43 Date of Discharge: Feb 22, 2024 Labs/Diagnostic Data: Laboratory Results Test 02/22/24 11:24 02/22/24 04:55 02/22/24 03:00 02/21/24 18:42 POC Glucose 228 mg/dl (70-106) White Blood Count 6.3 10^3/uL (4.4-10.8) Red Blood Count 4.53 10^6/uL (4.5-5.90) Hemoglobin 12.6 g/dL (13.5-17.5) Hematocrit 37.9 % (41.0-53.0) Mean Corpuscular Volume 83.7 fL (80.0-100.0) Mean Corpuscular Hemoglobin 27.8 pg (28.0-32.0) Mean Corpuscular Hemoglobin Concent 33.3 g/dL (32.0-36.0) Red Cell Distribution Width 17.0 % (11.8-14.3) Platelet Count 206 10^3/uL (140-450) Mean Platelet Volume 7.0 fL (6.9-10.8) Neutrophils (%) (Auto) 69.0 % (37.0-80.0) Lymphocytes (%) (Auto) 17.9 % (10.0-50.0) Monocytes (%) (Auto) 7.6 % (0.0-12.0) Eosinophils (%) (Auto) 4.7 % (0.0-7.0) Basophils (%) (Auto) 0.8 % (0.0-2.0) Neutrophils # (Auto) 4.3 10 ^3/uL (1.6-8.6) Lymphocytes # (Auto) 1.1 10 ^3/uL (0.4-5.4) Monocytes # (Auto) 0.5 10 ^3/uL (0-1.3) Eosinophils # (Auto) 0.3 10 ^3/uL (0-0.8) Basophils # (Auto) 0.1 10 ^3/uL (0-0.2) Nucleated Red Blood Cells 0.0 % Prothrombin Time 18.5 sec (9.3-11.8) Prothrombin Time INR 1.82 (0.9-1.15) Sodium Level 138 mmol/L (136-145) Potassium Level 4.3 mmol/L (3.5-5.1) Chloride Level 103 mmol/L (98-107) Carbon Dioxide Level 27 mmol/L (20-31) Anion Gap 8 (5-15) Blood Urea Nitrogen 22 mg/dL (9-23) Creatinine 1.20 mg/dL (0.700-1.30) Glomerular Filtration Rate Calc 60 mL/min (>90) BUN/Creatinine Ratio 18.3 (10.0-20.0) Serum Glucose 193 mg/dL (74-106) Hemoglobin A1c 8.2 % A1C (<5.7) Lactic Acid Level 1.1 mmol/L (0.4-2.0) Calcium Level 10.0 mg/dL (8.7-10.4) Total Bilirubin 0.5 mg/dL (0.2-1.0) Aspartate Amino Transferase (AST) 25 U/L (13-40) Alanine Aminotransferase (ALT) 17 U/L (7-40) Alkaline Phosphatase 114 U/L (46-116) Total Protein 8.0 g/dL (5.7-8.2) Albumin 4.1 g/dL (3.2-4.8) Vitamin B12 Level 778 pg/mL (211-911) Thyroid Stimulating Hormone (TSH) 5.95 uIU/mL (0.55-4.78) Urine Color Light-yellow (Yellow) Urine Clarity Clear (Clear) Urine pH 6.5 (5.0-9.0) Urine Specific [place] 1.010 (1.001-1.035) Urine Protein 1+ (Negative) Urine Ketones Negative (Negative) Urine Blood Trace /uL (Negative) Urine Nitrite Negative (Negative) Urine Bilirubin Negative (Negative) Urine Urobilinogen Normal mg/dL (Negative) Urine Leukocyte Esterase Negative /uL (Negative) Urine RBC 3 /hpf (0 - 3) Urine WBC None seen /hpf (0 - 3) Urine Squamous Epithelial Cells None seen /hpf (<5) Urine Bacteria None seen /hpf (None Seen) Urine Glucose 1+ mg/dL (Normal) Urine Opiates Screen Neg (NEGATIVE) Urine Fentanyl Screen Neg (NEGATIVE) Urine Barbiturates Screen Neg (NEGATIVE) Urine Phencyclidine Screen Neg (NEGATIVE) Urine Amphetamines Screen Neg (NEGATIVE) Urine Benzodiazepines Screen Neg (NEGATIVE) Urine Cocaine Screen Neg (NEGATIVE) Urine Cannabinoids Screen Neg (NEGATIVE) Blood Gas Specimen Type Arterial Blood Gas Sample Site Right radial Blood Gas Patient Temperature 37.0 Arterial Blood Date Drawn [id number] Arterial Blood pH 7.402 (7.350-7.450) Arterial Blood Partial Pressure CO2 37.3 mmHg (35.0-48.0) Arterial Blood Partial Pressure O2 71.1 mmHg (83.0-108.0) Arterial Blood HCO3 22.7 mmol/L (21.0-28.0) Arterial Blood Oxygen Saturation 93.0 % (94.0-98.0) Arterial Blood Base Excess -1.7 mmol/L (-2.0-3.0) Arterial Blood Oxyhemoglobin 91.8 % (94.0-98.0) Arterial Blood Carboxyhemoglobin 0.9 % (0.5-1.5) Arterial Blood Methemoglobin 0.4 % (0.0-1.5) Lm Test Modified Blood Gas Total Hemoglobin 13.10 g/dL (13.5-17.5) Blood Gas Modality Room air FiO2 % 21.0 Test 02/21/24 18:31 Troponin I High Sensitivity 17 ng/L (</=54) B-Type Natriuretic Peptide 395.34 pg/mL (0-100) Other Laboratory Tests 02/22/24 04:55 Brief Hx & Hospital Course: Patient was admitted for shortness of breath, improved with steroids. Will discharge home with Prednisone, Zithromax, and Lasix. No resp distress on room air. Discussed with daugther at bedside. Condition at Discharge: Poor Final Diagnosis/Problems List COPD Exacerbation Chronic Diasotlic Dysfunction Discharge Disposition: Home Discharge Instruct/Medications Diet: Consistent carbohydrate Activity: Light activity Follow Up/Referral: Dr. Riddle in 2 weeks Medications: see [facility] Discharge Statement: "Patient was advised to return to the ER or call 911 if any headaches, dizziness, shortness of breath, chest pain, abdominal pain, bleeding, fevers, or worsening of medical condition. Patient was counseled about treatment plan, medications, possible side effects, patientverbalized understanding. All questions were answered to the best of my ability. This discharge took greater then 30 minutes in planning, reviewing documentation, counseling the patient, and discussing with other team members." ASSESSMENT ASSESSMENT Assessment Date of Service: Feb 22, 2024 Billing Provider: SRINIVASAN SALOMON MD Common Visit Codes: 05213-CCO/OBS DISCH DAY >30min SRINIVASAN SALOMON MD Feb 22, 2024 12:02
--- NOTE | 2024-02-22 14:52 | DVHSR ---
APPROVED REPORT EXAM: Two-dimensional and M-mode echocardiogram with Doppler and color Doppler. Blood Pressure: 137/78 mmHg INDICATION Atrial Fibrillation RISK FACTORS Height: 5'5", Weight: 206 DIMENSIONS LVDd4.7 (3.8-5.7cm)LA (2D)4.5 (1.9-4.0cm)Aortic Root3.3 (2.0-3.7cm) LVDs2.9 (2.5-4.0cm)LA (MM) (1.9-4.0cm)Aortic Cusp Exc1.8 (1.5-2.0cm) EF (%) 67.0 (55-70%)Rt. Atrium (1.9-4.0cm)Asc. Aorta cm IVSd1.8 (0.7-1.1cm)RV (D) (1.8-2.4cm) Mitral Valve MitralMitral Stenosis E/A ratio0.02D MVAcm2 Aortic Valve Aortic ValveAortic Stenosis V10.88m/[place] Mean GR.5mmHg V21.37m/[place] Peak GR.7mmHg LVOT Diameter2.2 (1.8-2.4cm)Doppler AVA2.44cm2 Pulmonic Valve V21.16m/s Other Information Quality : Technically LimitedRhythm : Technically limited study due to body habitus. Conclusion Normal left ventricular size and dimension. Normal left ventricular systolic function estimated ejec tion fraction 55%. There is a grade1 diastolic dysfunction. Normal right ventricular size and dimension. Normal right ventricular systolic function. Normal biatrial size and dimension. Normal aortic valve structure and function. Normal mitral valve structure and function. Normal tricuspid valve structure function. The pulmonary valve is grossly normal. No pericardial effusion.
[2024-02-22] MEDS: predniSONE 20 MG TAB PO SCH (16:08)
[2024-02-22] MEDS ORDERED: methylPREDNISolone SOD SUCC 40 MG/ML VL IV SCH (22:00)
[2024-02-22] MEDS ORDERED: ATORVASTATIN 20 MG TAB PO SCH (22:00)
[2024-02-23] MEDS ORDERED: LOSARTAN POTASSIUM 50 MG TAB PO SCH (10:00)
== END 2024-02-22 16:39 | disposition home or self-care (01) | DRG 177 ==
LOC: ER 16:34 → TELE 20:43 → TELE-CENTR 23:16
PROVIDERS: ATTEND Internal Medicine
DX: J15.69 Pneumonia due to other Gram-negative bacteria (principal); I50.33 Acute on chronic diastolic (congestive) heart failure; I48.21 Permanent atrial fibrillation; I13.0 Hypertensive heart and chronic kidney disease with heart failure and stage 1 through stage 4 chronic kidney disease, or unspecified chronic kidney disease; J44.1 Chronic obstructive pulmonary disease with (acute) exacerbation; J44.0 Chronic obstructive pulmonary disease with (acute) lower respiratory infection; J15.9 Unspecified bacterial pneumonia; E03.9 Hypothyroidism, unspecified; E11.22 Type 2 diabetes mellitus with diabetic chronic kidney disease; N18.9 Chronic kidney disease, unspecified; E78.5 Hyperlipidemia, unspecified; Z85.46 Personal history of malignant neoplasm of prostate
CPT/HCPCS: 36415; 36600; 80053; 80307; 81001; 82306; 82607; 82805; 82962; 83036; 83605; 83880; 84443; 84484; 85025; 85610; 87070; 87205; 93306; 94640; G0378; J1815

== ENCOUNTER → 2024-03-09 | Outpatient (CLI) | payer OTHER ==
[~2024-03-09] MED LIST changes: +ALBUAER3 IN; -AUG875T PO; +AZIT-74 PO; +FURO1TAB33 PO; +POTA-36 PO; +PRED20TA2 PO
[2024-03-09 11:14] LABS: Basophils # (auto) 0 10 ^3/uL (0-0.2); Basophils % (auto) 0.6 % (0.0-2.0); Eosinophils # (auto) 0.2 10 ^3/uL (0-0.8); Eosinophils % (auto) 2.8 % (0.0-7.0); Hematocrit 37.3 % (41.0-53.0); Hemoglobin 12.2 g/dL (13.5-17.5); Lymphocytes # (auto) 1.3 10 ^3/uL (0.4-5.4); Mean Corpuscular Hemoglobin 27.8 pg (28.0-32.0); Mean Corpuscular Hgb Conc. 32.7 g/dL (32.0-36.0); Mean Corpuscular Volume 85.1 fL (80.0-100.0); Monocytes # (auto) 0.5 10 ^3/uL (0-1.3); Monocytes % (auto) 7.3 % (0.0-12.0); Neutrophils # (auto) 5.3 10 ^3/uL (1.6-8.6); Neutrophils % (auto) 71.3 % (37.0-80.0); Nucleated Red Blood Cells % 0.1 %; Platelet Count (auto) 145 10^3/uL (140-450); Red Blood Cells 4.38 10^6/uL (4.5-5.90); Red Cell Distribution Width 16.6 % (11.8-14.3); White Blood Cell 7.4 10^3/uL (4.4-10.8)
[2024-03-09 11:44] LABS: Prostate Specific Antigen 10.08 ng/mL (0.0-4.0)
[2024-03-09 11:49] LABS: Free T4 (Free Thyroxine) 1.27 ng/dL (0.89-1.76)
[2024-03-09 12:01] LABS: Alanine Aminotransferase 18 U/L (7-40); Alkaline Phosphatase 109 U/L (46-116); Anion Gap 7 (5-15); Aspartate Aminotransferase 20 U/L (13-40); BUN/Creatinine Ratio 18.5 (10.0-20.0); Bilirubin, Total 0.6 mg/dL (0.2-1.0); Calcium 9.9 mg/dL (8.7-10.4); Carbon Dioxide 24 mmol/L (20-31); Chloride 104 mmol/L (98-107)
[2024-03-09 12:02] LABS: Total Protein 7.5 g/dL (5.7-8.2)
[2024-03-09 12:12] LABS: Blood Urea Nitrogen 25 mg/dL (9-23); Glucose 249 mg/dL (74-106); Sodium 135 mmol/L (136-145)
== END | disposition home or self-care (01) ==
LOC: LAB 10:11
PROVIDERS: ATTEND Student in an Organized Health Care Education/Training Program
DX: C61 Malignant neoplasm of prostate (principal); I12.9 Hypertensive chronic kidney disease with stage 1 through stage 4 chronic kidney disease, or unspecified chronic kidney disease; E11.22 Type 2 diabetes mellitus with diabetic chronic kidney disease; N18.30 Chronic kidney disease, stage 3 unspecified
CPT/HCPCS: 36415; 80053; 83036; 84153; 84439; 84443; 85025

== ENCOUNTER → 2024-06-06 | Outpatient (CLI) | payer OTHER ==
[2024-06-06 09:49] LABS: Urine Bacteria None Seen /hpf (None Seen)
[2024-06-06 10:11] LABS: Basophils # (auto) 0 10 ^3/uL (0-0.2); Basophils % (auto) 0.6 % (0.0-2.0); Eosinophils # (auto) 0.3 10 ^3/uL (0-0.8); Eosinophils % (auto) 4.7 % (0.0-7.0); Hematocrit 37.8 % (41.0-53.0); Hemoglobin 12.1 g/dL (13.5-17.5); Lymphocytes # (auto) 1.7 10 ^3/uL (0.4-5.4); Lymphocytes % (auto) 27.1 % (10.0-50.0); Mean Corpuscular Hemoglobin 27.3 pg (28.0-32.0); Mean Corpuscular Hgb Conc. 32.1 g/dL (32.0-36.0); Mean Corpuscular Volume 84.9 fL (80.0-100.0); Monocytes # (auto) 0.5 10 ^3/uL (0-1.3); Neutrophils # (auto) 3.7 10 ^3/uL (1.6-8.6); Neutrophils % (auto) 59.6 % (37.0-80.0); Platelet Count (auto) 163 10^3/uL (140-450); Red Blood Cells 4.45 10^6/uL (4.5-5.90); Red Cell Distribution Width 16.6 % (11.8-14.3); White Blood Cell 6.3 10^3/uL (4.4-10.8)
[2024-06-06 10:17] LABS: Urine Blood TRACE /uL (Negative); Urine Clarity Clear (Clear); Urine Color Light-Yellow (Yellow); Urine Protein, UAD 1+ (Negative); Urine Specific Gravity 1.013 (1.001-1.035); Urine Squamous Epithelial Cell FEW /hpf (<5); Urine Urobilinogen Normal (Negative); Urine WBC 1 /HPF (0-3)
[2024-06-06 10:39] LABS: Alanine Aminotransferase 16 U/L (7-40); Alkaline Phosphatase 143 U/L (46-116); Anion Gap 5 (5-15); BUN/Creatinine Ratio 17.9 (10.0-20.0); Blood Urea Nitrogen 25 mg/dL (9-23); Calcium 9.6 mg/dL (8.7-10.4); Carbon Dioxide 29 mmol/L (20-31); Chloride 105 mmol/L (98-107); Glucose 182 mg/dL (74-106); LDL Cholesterol 78 mg/dL (< 100); Potassium 5.3 mmol/L (3.5-5.1); Sodium 139 mmol/L (136-145); Total Protein 7.9 g/dL (5.7-8.2); Triglycerides 144 mg/dL (< 150)
[2024-06-06 10:40] LABS: Albumin 4.3 g/dL (3.2-4.8); Aspartate Aminotransferase 21 U/L (13-40); Cholesterol 136 mg/dL (< 200)
[2024-06-06 10:41] LABS: Bilirubin, Total 0.5 mg/dL (0.2-1.0); Free T4 (Free Thyroxine) 1.15 ng/dL (0.89-1.76); HDL Cholesterol 31 mg/dL (40-59)
[2024-06-06 10:45] LABS: Erythrocyte Sedimentation Rate 60 mm/hr (0-20)
[2024-06-06 10:50] LABS: Uric Acid 5.9 mg/dL (3.7-9.2)
== END | disposition home or self-care (01) ==
LOC: LAB 09:39
PROVIDERS: ATTEND Internal Medicine
DX: I10 Essential (primary) hypertension (principal); E11.9 Type 2 diabetes mellitus without complications
CPT/HCPCS: 36415; 80053; 80061; 81001; 82043; 82607; 83036; 84439; 84443; 84550; 85025; 85652

== ENCOUNTER → 2024-06-18 | Outpatient (CLI) | payer OTHER, MEDICARE ==
[2024-06-18 14:58] LABS: Basophils # (auto) 0 10 ^3/uL (0-0.2); Basophils % (auto) 0.6 % (0.0-2.0); Eosinophils # (auto) 0.2 10 ^3/uL (0-0.8); Eosinophils % (auto) 3.2 % (0.0-7.0); Hematocrit 36.5 % (41.0-53.0); Hemoglobin 11.8 g/dL (13.5-17.5); Lymphocytes # (auto) 1.4 10 ^3/uL (0.4-5.4); Mean Corpuscular Hemoglobin 27.3 pg (28.0-32.0); Mean Corpuscular Hgb Conc. 32.5 g/dL (32.0-36.0); Mean Corpuscular Volume 84.2 fL (80.0-100.0); Monocytes # (auto) 0.5 10 ^3/uL (0-1.3); Neutrophils # (auto) 4.9 10 ^3/uL (1.6-8.6); Neutrophils % (auto) 69.2 % (37.0-80.0); Nucleated Red Blood Cells % 0.1 %; Platelet Count (auto) 169 10^3/uL (140-450); Red Blood Cells 4.33 10^6/uL (4.5-5.90); Red Cell Distribution Width 16.5 % (11.8-14.3); White Blood Cell 7.1 10^3/uL (4.4-10.8)
[2024-06-18 15:24] LABS: Alanine Aminotransferase 19 U/L (7-40); Albumin 4.2 g/dL (3.2-4.8); Anion Gap 6 (5-15); Aspartate Aminotransferase 22 U/L (13-40); BUN/Creatinine Ratio 22.1 (10.0-20.0); Calcium 9.5 mg/dL (8.7-10.4); Carbon Dioxide 26 mmol/L (20-31); Chloride 104 mmol/L (98-107); Potassium 4.9 mmol/L (3.5-5.1); Total Protein 7.9 g/dL (5.7-8.2)
[2024-06-18 15:25] LABS: Bilirubin, Total 0.3 mg/dL (0.2-1.0)
[2024-06-18 15:29] LABS: Alkaline Phosphatase 159 U/L (46-116); Blood Urea Nitrogen 32 mg/dL (9-23); Glucose 215 mg/dL (74-106); Sodium 136 mmol/L (136-145)
== END | disposition home or self-care (01) ==
LOC: LAB 14:33
PROVIDERS: ATTEND Student in an Organized Health Care Education/Training Program
DX: C61 Malignant neoplasm of prostate (principal)
CPT/HCPCS: 36415; 80053; 84153; 85025

== ENCOUNTER → 2024-10-19 | Outpatient (CLI) | payer OTHER ==
[2024-10-19 11:50] LABS: Hemoglobin 10.9 g/dL (13.5-17.5)
[2024-10-19 11:56] LABS: Hematocrit 33.8 % (41.0-53.0); Mean Corpuscular Hemoglobin 26.1 pg (28.0-32.0); Mean Corpuscular Volume 81.0 fL (80.0-100.0); Nucleated Red Blood Cells % 0.1 %
[2024-10-19 12:10] LABS: Alanine Aminotransferase 11 U/L (7-40); Albumin 3.9 g/dL (3.2-4.8); Anion Gap 8 (5-15); BUN/Creatinine Ratio 20.7 (10.0-20.0); Bilirubin, Total 0.3 mg/dL (0.2-1.0); Calcium 9.1 mg/dL (8.7-10.4); Carbon Dioxide 23 mmol/L (20-31); Chloride 104 mmol/L (98-107); Total Protein 7.9 g/dL (5.7-8.2)
[2024-10-19 12:11] LABS: Alkaline Phosphatase 696 U/L (46-116); Blood Urea Nitrogen 31 mg/dL (9-23); Glucose 329 mg/dL (74-106); Potassium 5.3 mmol/L (3.5-5.1); Sodium 135 mmol/L (136-145)
== END | disposition home or self-care (01) ==
LOC: LAB 10:48
PROVIDERS: ATTEND Internal Medicine
DX: C61 Malignant neoplasm of prostate (principal); D64.9 Anemia, unspecified; Z92.3 Personal history of irradiation
CPT/HCPCS: 36415; 80053; 84153; 84403; 85025

== ENCOUNTER 2024-11-19 10:49 | Outpatient (CLI) | payer OTHER ==
[2024-11-19 11:19] LABS: Hematocrit 31.8 % (41.0-53.0); Hemoglobin 10.3 g/dL (13.5-17.5); Nucleated Red Blood Cells % 0.1 %
[2024-11-19 11:21] LABS: Mean Corpuscular Hemoglobin 26.2 pg (28.0-32.0); Mean Corpuscular Volume 80.7 fL (80.0-100.0)
[2024-11-19 11:54] LABS: Microalb/Creat Ratio, Urine 489.0
[2024-11-19 11:55] LABS: Alanine Aminotransferase 19 U/L (7-40); Albumin 4.0 g/dL (3.2-4.8); Anion Gap 9 (5-15); BUN/Creatinine Ratio 16.2 (10.0-20.0); Bilirubin, Total 0.6 mg/dL (0.2-1.0); Calcium 8.9 mg/dL (8.7-10.4); Carbon Dioxide 25 mmol/L (20-31); Chloride 101 mmol/L (98-107); Total Protein 7.9 g/dL (5.7-8.2)
[2024-11-19 11:56] LABS: Blood Urea Nitrogen 23 mg/dL (9-23); Glucose 315 mg/dL (74-106); Potassium 5.3 mmol/L (3.5-5.1); Sodium 135 mmol/L (136-145)
[2024-11-19 12:04] LABS: Alkaline Phosphatase 1195 U/L (46-116)
[2024-11-20 08:07] LABS: Prostate Specific Antigen 361.0 ng/mL (0.0-4.0)
== END 2024-11-19 17:00 | disposition home or self-care (01) ==
LOC: LAB 10:49
PROVIDERS: ATTEND Radiology Radiation Oncology
DX: C61 Malignant neoplasm of prostate (principal); E11.9 Type 2 diabetes mellitus without complications; D64.9 Anemia, unspecified; Z92.3 Personal history of irradiation
CPT/HCPCS: 36415; 80053; 82043; 82570; 83615; 84154; 85025

== ENCOUNTER 2024-12-26 12:56 | Emergency (ER) | payer OTHER ==
[~2024-12-26] VITALS: Ht 152.4 cm; Wt 92.6 kg
--- NOTE | 2024-12-26 14:26 | ED.PDOC ---
Back pain HPI HPI Comments A 84 YEAR OLD MALE PRESENTS TO THE ED WITH COMPLAINT OF BACK PAIN. PATIENT REPORTS THAT HE HAD FALLEN DOWN 3 WEEKS AGO AND WAS SEEN AT [facility] WHERE HE HAD RECEIVED A HUIZAR SCAN WITH CTS AND X-RAYS. PATIENT RELAYS THAT HE WAS TOLD NO FRACTURES WERE FOUND AND HE WAS PRESCRIBED NORCO 7.5MG FOR PAIN RELIEF. PATIENT STATES HE FOLLOWED UP WITH HIS PCP AND WAS ALSO PRESCRIBED LIDOCAINE PATCHES, HOWEVER, SINCE THE FALL, HE HAS BEEN UNABLE TO WALK ON HIS OWN AND CONTINUES TO EXPERIENCE PAIN TO HIS LOWER BACK AND LEFT UPPER BACK. PATIENT IS REQUESTING IMAGING STUDIES HE FEELS HE MAY HAVE BROKEN BONES. PATIENT DENIES ANY RECENT FALLS, HEAD INJURY, SHORTNESS OF BREATH, CHEST PAIN, ABDOMINAL PAIN, NAUSEA, VOMITING, HEADACHE, OR OTHER COMPLAINTS. NO OTHER SYMPTOMS OR MODIFYING FACTORS AT THIS TIME. PATIENT IS ALERT, ORIENTED X 4, AND HAS STEADY GAIT. Chief Complaint: Back Pain Time Seen by MD: 14:22 Primary Care Provider: UNKNOWN Reviewed Notes: Nurses Notes, Medications, Allergies Allergies: Coded Allergies: NO KNOWN ALLERGIES (Unverified , 11/01/16) Home Meds Active Scripts Gabapentin (Gabapentin) 300 Mg Cap, 300 MG PO BID, #30 CAP Prov:ASCENCION MAYFIELD 12/26/24 Albuterol Sulfate (VENTOLIN MDI) 90 Mcg Ih, 90 MCG IN Q6HPRN PRN for 30 Days, #30 INH Prov:SRINIVASAN SALOMON MD 02/22/24 Azithromycin (Zithromax) 250 Mg Tab, 250 MG PO QAM for 4 Days, #4 TAB Prov:SRINIVASAN SALOMON MD 02/22/24 Potassium Chloride (POTASSIUM CHLORIDE CR) 10 Meq Tb, 1 TAB PO DAILY, #30 TAB 0 Refills Prov:SRINIVASAN SALOMON MD 02/22/24 Furosemide (Lasix) 20 Mg Tb, 1 TAB PO DAILY, #30 TAB 0 Refills Prov:SRINIVASAN SALOMON MD 02/22/24 Prednisone (Prednisone) 20 Mg Tab, 40 MG PO QAM for 5 Days, #10 MG Prov:SRINIVASAN SALOMON MD 02/22/24 Reported Medications Losartan Potassium (Losartan Potassium) 100 Mg Tab, 1 TAB PO DAILY, #30 TAB 5 Refills 06/09/23 Warfarin Sodium (Warfarin Sodium) 3 Mg Tab, 2 TAB PO UD, #30 TAB 5 Refills 06/09/23 Levothyroxine Sodium (Levothyroxine Sodium) 75 Mcg Tab, 0.5 TAB PO QAM 02/07/22 Insulin Isophane & Reg (Human) (Humulin 70/30 (70-30) 100 Unit/ml) 1 Units/0.01 Ml Inj, 8 UNITS SC BID 02/07/22 Metoprolol Tartrate (Metoprolol Tartrate) 25 Mg Tab, 25 MG PO BID, #60 TAB 08/29/14 Atorvastatin Calcium (ATORVASTATIN CALCIUM) 40 Mg Tab, 1 TAB PO QPM, #30 TAB 3 Refills 08/29/14 Information Source: Patient, Spouse Mode of Arrival: Ambulatory Timing: Days Duration: Since onset, Days Location of Back pain: (B) Lower back, (B) Thoracic Severity: Moderate Prehospital treatment: None Quality: Aching Onset: Fall Circumstance: Other History of: None Modifying Factors: Movement, Twisting Associated signs and symptoms: None Past Medical History PAST MEDICAL HISTORY: AFIB, Cancer, DM, High Lipids, HTN, Thyroid Surgical History: Denies all surgeries Family History Family History: Unknown Social History Smoker: Non-Smoker Alcohol: Denies ETOH Use Drugs: Denies Drug Use Lives In: Home Constitutional: denies: chills, diaphoresis, fatigue, fever, malaise, sweats, weakness, others EENTM: denies: blurred vision, double vision, ear bleeding, ear discharge, ear drainage, ear pain, ear ringing, eye pain, eye redness, hearing loss, mouth pain, mouth swelling, nasal discharge, nose bleeding, nose congestion, nose pain, photophobia, tearing, throat pain, throat swelling, voice changes, others Respiratory: denies: cough, hemoptysis, orthopnea, SOB at rest, shortness of breath, SOB with excertion, stridor, wheezing, others Cardiovascular: denies: chest pain, dizzy spells, diaphoresis, Dyspnea on exertion, edema, irregular heart beat, left arm pain, lightheadedness, palpitations, PND, syncope, others Gastrointestinal: denies: abdomen distended, abdominal pain, blood streaked bowels, constipated, diarrhea, dysphagia, difficulty swallowing, hematemesis, melena, nausea, poor appetite, poor fluid intake, rectal bleeding, rectal pain, vomiting, others Genitourinary: denies: burning, dysuria, flank pain, frequency, hematuria, i ncontinence, penile discharge, penile sore, pain, testicle pain, testicle swelling, urgency, others Neurological: denies: dizziness, fainting, headache, left sided numbness, left sided weakness, numbness, paresthesia, pre-existing deficit, right sided numbness, right sided weakness, seizure, speech problems, tingling, tremors, weakness, others Musculoskeletal: reports: back pain, muscle pain; denies: gout, joint pain, joint swelling, muscle stiffness, neck pain, others Integumetry: denies: bruises, change in color, change in hair/nails, dryness, laceration, lesions, lumps, rash, wounds, others Allergic/Immunocompromised: denies: Difficulty Healing, Frequent Infections, Hives, Itching, others Hematologic/Lymphatic: denies: anemia, blood clots, easy bleeding, easy bruising, swollen glands, others Endocrine: denies: excessive hunger, excessive sweating, excessive thirst, excessive urination, flushing, intolerance to cold, intolerance to heat, unexplained weight gain, unexplained weight loss, others Psychiatric: denies: anxiety, bipolar disorder, depression, hopeless, panic disorder, schizophrenia, sleepless, suicidal, others All Other Systems: Reviewed and Negative Physical Exam General Appearance: No Apparent Distress, Normal HEENT: Normal ENT Inspection, PERRL/EOMI, Pharynx Normal, TMs Normal Neck: Full Range of Motion, Non-Tender, Normal, Normal Inspection Respiratory: Chest Non-Tender, Lungs Clear, No Accessory Muscle Use, No Respiratory Distress, Normal Breath Sounds Cardiovascular: No Edema, No JVD, No Murmur, No Gallop, Normal Peripheral Pulses, Regular Rate/Rhythm Breast Exam: Deferred Gastrointestinal: No Organomegaly, Non Tender, No Pulsatile Mass, Normal Bowel Sounds, Soft Genitalia: Deferred Pelvic: Deferred Rectal: Deferred Extremities: No calf tenderness, Normal capillary refill, Normal inspection, Normal range of motion, Non-tender, No pedal edema Musculoskeletal : Location: Bilateral Extremity Location: Back Apperance: Tenderness: Moderate (TENDERNESS AND MUSCLE SPASM ON MIDDLE AND LOWER BACK, NO BONY TENDERNESS, SWELLING AND DEFORMITY. ) Neurologic: Alert, refrigerator room clerk II-XII nml as Tested, No Motor Deficits, Normal Affect, Normal Mood, No Sensory Deficits Cerebellar Function: Normal Reflexes: Normal Skin: Dry, Normal Color, Warm Peripheral Pulses: 2+ carotid (R), 2+ carotid (L), 2+ dorsalis pedis (R), 2+ dorsalis pedis (L) Lymphatic: No Adenopathy Was a procedure done? Was a procedure done?: No Back Pain Differential Dx Differential Diagnosis: Musculoskeletal Pain, Other (DDD OF MIDDLE AND LOW BACK ) X-Ray, Labs, Meds, VS Vital Signs Date Time Temp Pulse Resp B/P (MAP) Pulse Ox O2 Delivery O2 Flow Rate FiO2 12/26/24 15:59 83 18 118/67 12/26/24 15:32 79 18 129/67 12/26/24 15:22 79 18 95 Room Air 12/26/24 15:22 98.2 79 18 129/67 (87) 95 98.2 12/26/24 13:04 97.8 61 20 121/58 99 97.8 Current Medications Medications (Trade) Dose Ordered Sig/Yosvany Route Start Time Stop Time Status Last Admin Meperidine HCl (Demerol Injection) 25 mg ONCE ONCE IM 12/26/24 15:15 12/26/24 15:16 DC 12/26/24 15:32 Ondansetron HCl (Zofran Po) 4 mg ONCE ONCE PO 12/26/24 15:15 12/26/24 15:16 DC 12/26/24 15:29 [place] [id number] Ph: [phone] DIAGNOSTIC IMAGING Diagnostic Imaging Report : [id number] Signed PATIENT: PATRIZIA ANAND ACCT: [id number] UNIT: [id number] : 1940 LOC: ER ROOM / BED: / AGE / SEX: 84 / M ADM STATUS: REG ER SERVICE 1424 ORDERING PHYSICIAN: ASCENCION MAYFIELD PROCEDURE(s): THOSP - SPINE THORACIC 2VIEW REASON: FALL X 3WEEKS AGO, [facility]AL IN [facility] ORDER NUMBER(s): [id number], ACCESSION NUMBER(s): [id number] INDICATION: pain COMPARISON: XY CHEST TWO VIEWS ROUTINE on DOS: 02/21/24, CT CHEST WITHOUT CONT RAST on DOS: 12/27/23, CT CHEST WITHOUT CONTRAST on DOS: 06/09/23, XY CHEST PORTABLE on DOS: 06/08/23, CHEST WITHOUT CONTRAST on DOS: 02/07/22 TECHNIQUE:2 views of the thoracic spine were obtained. FINDINGS: The thoracic vertebral alignment is normal. 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 No acute fracture, vertebral compression deformity or aggressive osseous lesions. The imaged thorax and abdomen are grossly unremarkable. IMPRESSION: No acute fracture. ATED BY: OPAL CALDERÓN MD DICTATED DATE/TIME: 12/26/241456 SIGNED BY: OPAL CALDERÓN MD SIGNED DATE/TIME: 12/26/241456 CC: [place] [id number] Ph: [phone] DIAGNOSTIC IMAGING Diagnostic Imaging Report : [id number] Signed PATIENT: PATRIZIA ANAND ACCT: [id number] UNIT: [id number] : 1940 LOC: ER ROOM / BED: / AGE / SEX: 84 / M ADM STATUS: REG ER SERVICE 23 ORDERING PHYSICIAN: ASCENCION MAYFIELD PROCEDURE(s): LUMB2 - LUMBAR SPINE 3 VIEW REASON: FALL X 3 WEEKS AGO, [facility] NORMAL IN [facility] ORDER NUMBER(s): [id number], ACCESSION NUMBER(s): [id number] INDICATION: pain COMPARISON: XY SPINE THORACIC 2VIEW on DOS: 12/26/24 TECHNIQUE: 3 views of the lumbar spine were obtained. FINDINGS: Moderate multilevel degenerative disc disease of the cervical spine. Atherosclerotic vascular disease of the abdominal aorta. No acute fracture, vertebral compression deformity or aggressive osseous lesions. The paravertebral soft tissues are grossly unremarkable. IMPRESSION: No acute fracture. ATED BY: OPAL CALDERÓN MD DICTATED DATE/TIME: 12/26/241456 SIGNED BY: OPAL CALDERÓN MD SIGNED DATE/TIME: 12/26/241456 CC: X-Ray, Labs, Meds, VS Comment EXTERNAL MEDICAL RECORDS REVIEWED: [NONE] INDEPENDENT HISTORIANS: SPOUSE SOCIAL DETERMINANTS OF HEALTH: [NONE] LABS ORDERED: NONE REVIEWED AND INTERPRETED RESULTS: T-SPINE XR, L-SPINE XR IMAGING ORDERED: T-SPINE XR, L-SPINE XR TREATMENTS ORDERED: DEMEROL 25MG IM AND ZOFRAN 4MG PO. PT STATES HIS PAIN WENT AWAY AFTER MEDICATION AND HE IS READY TO GO HOME NOW. PROCEDURES PERFORMED: NONE CRITICAL CARE TIME: NONE I HAVE DISCUSSED THE PATIENT WITH THE ATTENDING PHYSICIAN, DR. ELIZABETH, HE AGREES WITH THE PATIENT'S PLAN OF CARE AND DISPOSITION. BASED ON HISTORY OF PRESENT ILLNESS, AND PHYSICAL EXAM, PATIENT WILL BE DISCHARGED HOME. DISCUSSED PLAN FOR DISCHARGE HOME. RX: GABAPENTIN 300MG SHARED DECISION MAKING: DISCUSSED WITH PATIENT THAT THEIR WORKUP WAS NORMAL. PATIENT INSTRUCTED TO FOLLOW UP WITH PRIMARY CARE PROVIDER IN 1-2 DAYS FOR RE- EVALUATION OF SYMPTOMS. PATIENT VERBALIZES UNDERSTANDING TO RETURN TO ED FOR NEW OR WORSENING SYMPTOMS OR IF FOLLOW UP WITH PCP CANNOT BE OBTAINED. PATIENT FEELS COMFORTABLE GOING HOME AT THIS TIME. ALL QUESTIONS ADDRESSED AT TIME OF DISCHARGE. Images Reviewed?: Images reviewed and evaluated by me Time of 1ST Reevaluation: 16:00 Reevaluation 1ST: Improved Patient Education/Counseling: Diagnosis, Treatment, Need For Follow Up Family Education/Counseling: Diagnosis, Treatment, Need For Follow Up Medical Screening: No EMC Exist At This Time SEPSIS Sepsis Screen Date sepsis recognized/suspect: Dec 26, 2024 Time Sepsis recognized/suspect: 1307 Recent Procedure: No On Antibiotic Therapy: No Respiratory Rate >20: No Heart Rate >90: No Temp<36 C (96.8 F) or >38.3 C: No SBP <90 or MAP <65 mmHG: No New Acute Mental Status Change: No Is the patient on CPAP, BIPAP,: No Physician Orders Spine Thoracic 2view (12/26/24 14:24) Lumbar Spine 3 View (12/26/24 14:24) Vital Signs Date Time Temp Pulse Resp B/P (MAP) Pulse Ox O2 Delivery O2 Flow Rate FiO2 12/26/24 15:59 83 18 118/67 12/26/24 15:32 79 18 129/67 12/26/24 15:22 79 18 95 Room Air 12/26/24 15:22 98.2 79 18 129/67 (87) 95 98.2 12/26/24 13:04 97.8 61 20 121/58 99 97.8 Medications Medications Dose Ordered Sig/Yosvany Route Start Time Stop Time Status Last Admin Dose Admin Meperidine HCl 25 mg ONCE ONCE IM 12/26/24 15:15 12/26/24 15:16 DC 12/26/24 15:32 Ondansetron HCl 4 mg ONCE ONCE PO 12/26/24 15:15 12/26/24 15:16 DC 12/26/24 15:29 Departure 1 Departure Time of Disposition: 16:00 Impression: Primary Impression: Strain of mid-back Qualified Codes: S29.012D - Strain of muscle and tendon of back wall of thorax, subsequent encounter Additional Impressions: Low back strain Qualified Codes: S39.012D - Strain of muscle, fascia and tendon of lower back, subsequent encounter DDD (degenerative disc disease), thoracic DDD (degenerative disc disease), lumbosacral Qualified Codes: M51.370 - Other intervertebral disc degeneration, lumbosacral region with discogenic back pain only Disposition: HOME / SELF CARE / HOMELESS Condition: Stable Additional Instructions: FOLLOW-UP WITH PCP IN 1 TO 2 DAYS. TAKE MEDICATIONS PRESCRIBED. RETURN TO ED FOR ANY NEW OR WORSENING SYMPTOMS. e-Prescriptions Gabapentin (Gabapentin) 300 Mg Cap 300 MG PO BID, #30 CAP Prov: ASCENCION MAYFIELD 12/26/24 Discharged With: Self, Spouse Critical Care Note Critical Care Time?: No Stability Stability form required: No Heart Score Heart Score: Heart Score Response (Comments) Value History N/A 0 EKG N/A 0 Age N/A 0 Risk Factors N/A 0 Troponin N/A 0 Total 0 I personally scribed for ASCENCION MAYFIELD ([email or web address]) on 12/26/24 at 14:26. Electronically submitted by Benoit Gomez ([email or web address]). I personally scribed for ASCENCION MAYFIELD ([email or web address]) on 12/26/24 at 15:08. Electronically submitted by Benoit Gomez ([email or web address]). ASCENCION MAYFIELD Dec 26, 2024 14:26
--- NOTE | 2024-12-26 14:59 | DVH ---
INDICATION: pain COMPARISON: XY SPINE THORACIC 2VIEW on DOS: 12/26/24 TECHNIQUE: 3 views of the lumbar spine were obtained. FINDINGS: Moderate multilevel degenerative disc disease of the cervical spine. Atherosclerotic vascular diseas e of the abdominal aorta. No acute fracture, vertebral compression deformity or aggressive osseous lesions. The paravertebral soft tissues are grossly unremarkable. IMPRESSION: No acute fracture.
--- NOTE | 2024-12-26 14:59 | DVH ---
INDICATION: pain COMPARISON: XY CHEST TWO VIEWS ROUTINE on DOS: 02/21/24, CT CHEST WITHOUT CONTRAST on DOS: 12/27/23, C T CHEST WITHOUT CONTRAST on DOS: 06/09/23, XY CHEST PORTABLE on DOS: 06/08/23, CHEST WITHOUT CONTRAST on DOS: 02/07/22 TECHNIQUE:2 views of the thoracic spine were obtained. FINDINGS: The thoracic vertebral alignment is normal. 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 No acute fracture, vertebral compression deformity or aggressive osseous lesions. The imaged thorax and abdomen are grossly unremarkable. IMPRESSION: No acute fracture.
[2024-12-26 15:22] VITALS: TEMP 98.2; O2SAT 95
[2024-12-26] MEDS ORDERED: GABA-1250 PO (15:24)
[2024-12-26] MEDS: ONDANSETRON ODT 4 MG TAB PO ONE (15:29)
[2024-12-26] MEDS: MEPERIDINE HCL (25 MG/ML) 1ML VIAL IM ONE (15:32)
[2024-12-26 15:59] VITALS: BP 118/67; PULSE 83; RESP 18
== END 2024-12-26 16:03 | disposition home or self-care (01) ==
LOC: ER 12:56
DX: S29.012D Strain of muscle and tendon of back wall of thorax, subsequent encounter (principal); S39.012A Strain of muscle, fascia and tendon of lower back, initial encounter; M51.379 Other intervertebral disc degeneration, lumbosacral region without mention of lumbar back pain or lower extremity pain; M51.34 Other intervertebral disc degeneration, thoracic region; E11.9 Type 2 diabetes mellitus without complications; I10 Essential (primary) hypertension; I48.91 Unspecified atrial fibrillation; Z79.4 Long term (current) use of insulin; Z79.52 Long term (current) use of systemic steroids; Z79.899 Other long term (current) drug therapy; X58.XXXA Exposure to other specified factors, initial encounter; Y93.89 Activity, other specified; Y92.89 Other specified places as the place of occurrence of the external cause; Y99.8 Other external cause status
CPT/HCPCS: 72070; 72100; 96372; 99284; J2175; Q0162

== ENCOUNTER 2025-01-22 11:20 | Inpatient (IN) | payer OTHER ==
[~2025-01-22] VITALS: Ht 165.1 cm; Wt 102.0 kg
[~2025-01-22 11:20] MED LIST changes: +GABA-1250 PO
--- NOTE | 2025-01-22 11:37 | ECG ---
[facility] Test Date: 2025-01-22 Test Time: 11:26:47 Pat Name: PATRIZIA ANAND Department: [facility] ED Patient ID: [facility]-[id number] Room: 0247T Gender: M Restaurant Hospitality Manager: keven : 1940 Requested By: CONCHIS VILLARREAL Order Number: [id number] Reading MD: Daniel Doherty Measurements Intervals [place] Rate: 103 P: 0 CT: 0 QRS: 58 QRSD: 97 T: 148 QT: 351 QTc: 460 Interpretive Statements Atrial fibrillation Abnormal T, consider ischemia, lateral leads Electronically Signed On 01-28-2025 13:47:52 PDT by Daniel Doherty Please click the below link to view image of tracing.
--- NOTE | 2025-01-22 11:47 | ED.PDOC ---
History of Present Illness HPI Comments 84 y/o M, BIBA, with PMHx of AFib, DM, HLD, HTN, and colon cancer presents to the ED for CC of generalized weakness. EMS reports, patient is coming from home where he c/o worsening weakness and back pain since, having a fall [id number] prior. Per EMS, patient was seen at [facility] and [facility] for SS and all imaging and lab work has came back unremarkable. Patient relays, that since fall injury it has been difficult for him to ambulate. Patient denies numbness, tingling, abdominal pain, excessive thirst, frequency, urgency, or blurred vision. No other symptoms or modifying factors are present at this time. Chief Complaint: General Weakness Time Seen by MD: 11:45 Primary Care Provider: UNKNOWN Reviewed Notes: Nurses Notes, Rf Microwave Engineer Notes, Medications, Allergies Allergies: Coded Allergies: NO KNOWN ALLERGIES (Unverified , 11/01/16) Home Meds Active Scripts Gabapentin (Gabapentin) 300 Mg Cap, 300 MG PO BID, #30 CAP Prov:ASCENCION MAYFIELD 12/26/24 Albuterol Sulfate (VENTOLIN MDI) 90 Mcg Ih, 90 MCG IN Q6HPRN PRN for 30 Days, #3 0 INH Prov:SRINIVASAN SALOMON MD 02/22/24 Azithromycin (Zithromax) 250 Mg Tab, 250 MG PO QAM for 4 Days, #4 TAB Prov:SRINIVASAN SALOMON MD 02/22/24 Potassium Chloride (POTASSIUM CHLORIDE CR) 10 Meq Tb, 1 TAB PO DAILY, #30 TAB 0 Refills Prov:SRINIVASAN SALOMON MD 02/22/24 Furosemide (Lasix) 20 Mg Tb, 1 TAB PO DAILY, #30 TAB 0 Refills Prov:SRINIVASAN SALOMON MD 02/22/24 Prednisone (Prednisone) 20 Mg Tab, 40 MG PO QAM for 5 Days, #10 MG Prov:SRINIVASAN SALOMON MD 02/22/24 Reported Medications Losartan Potassium (Losartan Potassium) 100 Mg Tab, 1 TAB PO DAILY, #30 TAB 5 Refills 06/09/23 Warfarin Sodium (Warfarin Sodium) 3 Mg Tab, 2 TAB PO UD, #30 TAB 5 Refills 06/09/23 Levothyroxine Sodium (Levothyroxine Sodium) 75 Mcg Tab, 0.5 TAB PO QAM 02/07/22 Insulin Isophane & Reg (Human) (Humulin 70/30 (70-30) 100 Unit/ml) 1 Units/0.01 Ml Inj, 8 UNITS SC BID 02/07/22 Metoprolol Tartrate (Metoprolol Tartrate) 25 Mg Tab, 25 MG PO BID, #60 TAB 08/29/14 Atorvastatin Calcium (ATORVASTATIN CALCIUM) 40 Mg Tab, 1 TAB PO QPM, #30 TAB 3 Refills 08/29/14 Information Source: Patient, Emergency Med Personnel Mode of Arrival: EMS Severity: Moderate Timing: Months Duration: Since onset Prehospital treatment: None Past Medical History PAST MEDICAL HISTORY: AFIB, Cancer, DM, High Lipids, HTN, Thyroid Surgical History: Denies all surgeries Family History Family History: Unknown Social History Smoker: Non-Smoker Alcohol: Denies ETOH Use Drugs: Denies Drug Use Lives In: Home Constitutional: reports: weakness; denies: chills, diaphoresis, fatigue, fever, malaise, sweats, others EENTM: denies: blurred vision, double vision, ear bleeding, ear discharge, ear drainage, ear pain, ear ringing, eye pain, eye redness, hearing loss, mouth pain, mouth swelling, nasal discharge, nose bleeding, nose congestion, nose pain, photophobia, tearing, throat pain, throat swelling, voice changes, others Respiratory: denies: cough, hemoptysis, orthopnea, SOB at rest, shortness of breath, SOB with excertion, stridor, wheezing, others Cardiovascular: denies: chest pain, dizzy spells, diaphoresis, Dyspnea on exertion, edema, irregular heart beat, left arm pain, lightheadedness, palpitations, PND, syncope, others Gastrointestinal: denies: abdomen distended, abdominal pain, blood streaked bowels, constipated, diarrhea, dysphagia, difficulty swallowing, hematemesis, melena, nausea, poor appetite, poor fluid intake, rectal bleeding, rectal pain, vomiting, others Genitourinary: denies: burning, dysuria, flank pain, frequency, hematuria, incontinence, penile discharge, penile sore, pain, testicle pain, testicle swelling, urgency, others Neurological: denies: dizziness, fainting, headache, left sided numbness, left sided weakness, numbness, paresthesia, pre-existing deficit, right sided numbness, right sided weakness, seizure, speech problems, tingling, tremors, weakness, others Musculoskeletal: reports: back pain; denies: gout, joint pain, joint swelling, muscle pain, muscle stiffness, neck pain, others Integumetry: denies: bruises, change in color, change in hair/nails, dryness, laceration, lesions, lumps, rash, wounds, others Allergic/Immunocompromised: denies: Difficulty Healing, Frequent Infections, Hives, Itching, others Hematologic/Lymphatic: denies: anemia, blood clots, easy bleeding, easy bruising, swollen glands, others Endocrine: denies: excessive hunger, excessive sweating, excessive thirst, excessive urination, flushing, intolerance to cold, intolerance to heat, unexplained weight gain, unexplained weight loss, others Psychiatric: denies: anxiety, bipolar disorder, depression, hopeless, panic disorder, schizophrenia, sleepless, suicidal, others All Other Systems: Reviewed and Negative Physical Exam General Appearance: Moderate Distress HEENT: Normal ENT Inspection, Pharynx Normal, TMs Normal Neck: Full Range of Motion, Non-Tender, Normal, Normal Inspection Respiratory: Chest Non-Tender, Lungs Clear, No Accessory Muscle Use, No Respiratory Distress, Normal Breath Sounds Cardiovascular: No Edema, No JVD, No Murmur, No Gallop, Normal Peripheral Pulses, Regular Rate/Rhythm Breast Exam: Deferred Gastrointestinal: Diffuse, No Organomegaly, No Pulsatile Mass, Normal Bowel Sounds, Soft, Tenderness Genitalia: Deferred Pelvic: Deferred Rectal: Deferred Extremities: No calf tenderness, Normal capillary refill, Normal inspection, Normal range of motion, Non-tender, No pedal edema Musculoskeletal : Apperance: Normal Neurologic: Alert, car trimmer II-XII nml as Tested, Motor Weakness, Normal Affect, Normal Mood, No Sensory Deficits Cerebellar Function: Normal Reflexes: Normal Skin: Dry, Normal Color, Warm Lymphatic: No Adenopathy Was a procedure done? Was a procedure done?: No Differential Dx Considerations may include: ARTHRITIS, MUSCULOSKELETAL PAIN, X-Ray, Labs, Meds, VS Vital Signs Date Time Temp Pulse Resp B/P (MAP) Pulse Ox O2 Delivery O2 Flow Rate FiO2 01/22/25 14:24 83 01/22/25 13:00 86 01/22/25 12:37 90 Room Air* 0 21 01/22/25 12:37 97.8 70 22 174/69 (104) 96 97.8 01/22/25 12:31 84 01/22/25 11:26 103 01/22/25 11:25 98.1 88 16 135/83 95 98.1 Lab Test 01/22/25 11:47 Range/Units White Blood Count 6.3 4.4-10.8 10^3/uL Red Blood Count 3.90 L 4.5-5.90 10^6/uL Hemoglobin 10.1 L 13.5-17.5 g/dL Hematocrit 31.4 L 41.0-53.0 % Mean Corpuscular Volume 80.5 80.0-100.0 fL Mean Corpuscular Hemoglobin 25.8 L 28.0-32.0 pg Mean Corpuscular Hemoglobin Concent 32.1 32.0-36.0 g/dL Red Cell Distribution Width 19.1 H 11.8-14.3 % Platelet Count 226 140-450 10^3/uL Mean Platelet Volume 6.7 L 6.9-10.8 fL Neutrophils (%) (Auto) 37.0-80.0 % Lymphocytes (%) (Auto) 10.0-50.0 % Monocytes (%) (Auto) 0.0-12.0 % Basophils (%) (Auto) 0.0-2.0 % Neutrophils # (Auto) 1.6-8.6 10 ^3/uL Lymphocytes # (Auto) 0.4-5.4 10 ^3/uL Monocytes # (Auto) 0-1.3 10 ^3/uL Differential Total Cells Counted 100.0 100 Neutrophils % (Manual) 74 37.0-80.0 Band Neutrophils % (Manual) 1 Lymphocytes % (Manual) 14 10.0-50.0 Monocytes % (Manual) 7 0-12 Eosinophils % (Manual) 2 0-7 Basophils % (Manual) 0 0.0-2.0 Metamyelocytes % (manual) 1 Myelocytes % (Manual) 0 Promyelocytes % (Manual) 0 Blast Cells % (Manual) 0 Nucleated Red Blood Cells 1.0 % Reactive Lymphocytes 1 Platelet Estimate Adequate Large Platelets Few Anisocytosis (manual) Slight Stomatocytes Few Sodium Level 136 136-145 mmol/L Potassium Level 4.8 3.5-5.1 mmol/L Chloride Level 104 98-107 mmol/L Carbon Dioxide Level 22 20-31 mmol/L Anion Gap 10 5-15 Blood Urea Nitrogen 19 9-23 mg/dL Creatinine 1.21 0.700-1.30 mg/dL Glomerular Filtration Rate Calc 59 >90 mL/min BUN/Creatinine Ratio 15.7 10.0-20.0 Serum Glucose 170 H 74-106 mg/dL Calcium Level 9.1 8.7-10.4 mg/dL Current Medications Medications (Trade) Dose Ordered Sig/Yosvany Route Start Time Stop Time Status Last Admin Sodium Chloride 500 ml @ 500 mls/hr Q1H ONCE IV 01/22/25 11:45 01/22/25 12:44 DC 01/22/25 12:40 CT ABD PEL: IMPRESSION: 1. Cardiomegaly, coronary artery disease, pleural effusions, and interstitial prominence in the lung bases suggestive of CHF. 2. Left lower lobe 13 mm noncalcified pulmonary nodule is suspicious for metastatic disease. 3. Right renal inferior pole lobulated mildly complicated cyst. 4. Fecal retention throughout the colon suggestive of constipation. 5. Extensive blastic metastatic disease throughout the visualized bony structures. Please correlate with any known primary malignancy for this patient, as none was submitted in the history here. 6. Superior endplate burst fracture of L5, presumably pathologic. 7. No evidence of bowel obstruction, acute appendicitis, or other acute process in the abdomen or pelvis. The patient had an IV Hep-Lock with normal saline at a 500 cc bolus. The patient's CBC shows anemia with a hemoglobin of 10.1 hematocrit of 30.4 The chemistry panel is within normal limits. The patient is being admitted to the hospitalist at this time Patient was given Lasix 40 mg IV push Images Reviewed?: Images reviewed and evaluated by me Time of 1ST Reevaluation: 12:15 Reevaluation 1ST: Unchanged Patient Education/Counseling: Diagnosis, Treatment, Prognosis Family Education/Counseling: No Family Present SEPSIS Sepsis Screen Date sepsis recognized/suspect: Jan 22, 2025 Time Sepsis recognized/suspect: 1125 Recent Procedure: No On Antibiotic Therapy: No Respiratory Rate >20: No Heart Rate >90: No Temp<36 C (96.8 F) or >38.3 C: No SBP <90 or MAP <65 mmHG: No New Acute Mental Status Change: No Is the patient on CPAP, BIPAP,: No Physician Orders Urinalysis (01/22/25 11:35) Heplock Iv (01/22/25 11:35) Chief Deputy Sheriff (01/22/25 11:35) Blood Pressure (01/22/25 11:35) Pulse Oximetry (01/22/25 11:35) Ct Ab Pel Wo Con-No Oral Or Iv (01/22/25 11:35) Vital Signs Date Time Temp Pulse Resp B/P (MAP) Pulse Ox O2 Delivery O2 Flow Rate FiO2 01/22/25 14:24 83 01/22/25 13:00 86 01/22/25 12:37 90 Room Air* 0 21 01/22/25 12:37 97.8 70 22 174/69 (104) 96 97.8 01/22/25 12:31 84 01/22/25 11:26 103 01/22/25 11:25 98.1 88 16 135/83 95 98.1 Laboratory Tests Test 01/22/25 11:47 White Blood Count 6.3 10^3/uL (4.4-10.8) Medications Medications Dose Ordered Sig/Yosvany Route Start Time Stop Time Status Last Admin Dose Admin Sodium Chloride 500 ml @ 500 mls/hr Q1H ONCE IV 01/22/25 11:45 01/22/25 12:44 DC 01/22/25 12:40 Departure 1 Departure Time of Disposition: 16:02 Impression: Primary Impression: Acute diastolic heart failure Additional Impressions: 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 Electronically submitted by Sandra Srinivasan ([email or web address]). I personally scribed for CONCHIS VILLARREAL MD ([email or web address]) on 01/22/25 at 13:11. Electronically submitted by Sandra Srinivasan ([email or web address]). CONCHIS VILLARREAL MD Jan 22, 2025 11:47
[2025-01-22 11:56] LABS: Hematocrit 31.4 % (41.0-53.0); Hemoglobin 10.1 g/dL (13.5-17.5); Mean Corpuscular Hemoglobin 25.8 pg (28.0-32.0); Mean Corpuscular Volume 80.5 fL (80.0-100.0)
[2025-01-22 12:02] LABS: Chloride 104 mmol/L (98-107); Potassium 4.8 mmol/L (3.5-5.1); Sodium 136 mmol/L (136-145)
[2025-01-22 12:03] LABS: Anion Gap 10 (5-15); Carbon Dioxide 22 mmol/L (20-31)
[2025-01-22 12:04] LABS: Calcium 9.1 mg/dL (8.7-10.4)
[2025-01-22 12:09] LABS: BUN/Creatinine Ratio 15.7 (10.0-20.0); Blood Urea Nitrogen 19 mg/dL (9-23)
[2025-01-22 12:11] LABS: Glucose 170 mg/dL (74-106)
[2025-01-22 12:37] VITALS: O2SAT 90
[2025-01-22 12:37] LABS: Anisocytosis Slight; Nucleated Red Blood Cells % 1.0 %; Stomatocytes Few; Total Cells Counted 100.0 (100)
--- NOTE | 2025-01-22 12:38 | DVH ---
EXAM: CT CT AB PEL WO CON-NO ORAL OR IV HISTORY: pain COMPARISON: PET-CT dated 10/09/2024 was not made available on the PACS system for viewing. TECHNIQUE: Helical CT images of the abdomen and pelvis were performed without IV contrast. Sagittal a nd coronal reformatted images were obtained. This CT exam was performed using one or more of the foll owing dose reduction techniques: Automated exposure control, adjustment of the mA and/or kv according to patient size, or the use of iterative reconstruction techniques. Radiation Dose: Abdomen/Pelvis: CTDIvol 18.48 mGy, DLP 1130.82 mGy*cm. FINDINGS: CT abdomen: There is moderate bilateral gynecomastia. There are small right and small to moderate le ft pleural effusions. There are right posterior pleural calcifications. There is interstitial promin ence in the lung bases. There is a 13 mm ovoid noncalcified pulmonary nodule in the left lower lobe ( image 10, series 2). There is borderline ectasia of the central pulmonary arteries. The heart is enl arged. There are coronary artery calcifications. There is a mildly complicated loculated right candido l inferior pole cyst with thin wall calcifications. The noncontrast liver, spleen, gallbladder, pancr eas, left kidney, and bilateral adrenal glands are unremarkable. No abdominal aortic aneurysm. There are thick atherosclerotic calcifications of the abdominal aorta and major branches. CT pelvis: No abnormal bowel dilatation, free air, or free fluid. There is fecal retention in the col on. The appendix and urinary bladder are unremarkable. There are fatty bilateral inguinal indirect he rnias, slightly larger on the right. There are blastic metastatic lesions throughout the visualized b radha structures. There is a superior endplate burst fracture of the L5 vertebral body. IMPRESSION: 1. Cardiomegaly, coronary artery disease, pleural effusions, and interstitial prominence in the lung bases suggestive of CHF. 2. Left lower lobe 13 mm noncalcified pulmonary nodule is suspicious for metastatic disease. 3. Right renal inferior pole lobulated mildly complicated cyst. 4. Fecal retention throughout the colon suggestive of constipation. 5. Extensive blastic metastatic disease throughout the visualized bony structures. Please correlate w ith any known primary malignancy for this patient, as none was submitted in the history here. 6. Superior endplate burst fracture of L5, presumably pathologic. 7. No evidence of bowel obstruction, acute appendicitis, or other acute process in the abdomen or pel vis.
[2025-01-22] MEDS: SODIUM CHLORIDE 0.9% 500 ML IV ONE (12:40)
[2025-01-22] MEDS: FUROSEMIDE 40 MG/4 ML VIAL IV ONE (16:57)
[2025-01-22 19:35] VITALS: RESP 16; O2SAT 94
[2025-01-22] MEDS ORDERED: ONDANSETRON HCL 4 MG/2 ML VIAL IV PRN (21:45)
--- NOTE | 2025-01-22 21:50 | DVHHPRES ---
History of Present Illness Resident Creating Document: ANALILIA SERRANO History of Present Illness Patient is a Rwandan-speaking 84-year-old male with past medical history of atrial fibrillation, diabetes mellitus, hyperlipidemia, hypertension, and prostate cancer presented to [facility] ED with complaint of g eneralized weakness. Per EMS, the patient has been experiencing worsening weakness and back pain since a fall approximately one month ago. He was previously evaluated at [facility] and [facility] for similar symptoms, with reportedly unremarkable imaging and lab results. The patient states that since the fall, he has had increasing difficulty ambulating. He denies numbness, tingling, abdominal pain, excessive thirst, urinary frequency or urgency, and blurred vision. On evaluation in the ED, patient is afebrile, blood pressure was 177/98 mmHg. Initial labs show significant serum glucose 170, AST 25 and ALT >2300. Abdominal CT shows superior endplate burst fracture of L5, presumably pathologic. Extensive blastic metastatic disease throughout the visualized bony structures. The patient was placed full liquid diet and started on IV antibiotics and IV fluids. Patient is admitted for further evaluation and management. Past Medical History AFIB, Prostate Cancer, DM, High Lipids, HTN, hypothyroidism Past Surgical History: None Family History: None Smoke: No ALCOHOL: none Drugs: None Review of Systems Constitutional: Yes: Weakness Musculoskeletal: back pain Allergies: Coded Allergies: NO KNOWN ALLERGIES (Unverified , 11/01/16) Exam Vital Signs Vital Signs Date Time Temp Pulse Resp B/P (MAP) Pulse Ox O2 Delivery O2 Flow Rate FiO2 01/22/25 20:00 98.1 92 18 158/85 (109) 94 98.1 01/22/25 19:35 Room Air* 0 21 Exam General Appearance: Cooperative. Well developed. Well nourished. NAD Head Exam: Normal inspection Neck Exam: Normal inspection. Non-tender. Normal alignment Pulmonary/Respiratory: Chest non-tender. Clear bilateral breath sounds, no crackles, no wheezing. Cardiovascular/Chest: Regular rate and rhythm. No murmurs. No JVD. Peripheral Pulses: 2+ Radial (R). 2+ Radial (L). 2+ Pedal (R). 2+ Pedal (L) Abdominal Exam: Normal bowel sounds. Soft. normal abdomen, no visible veins, Nontender. No hepatospenomegaly. No masses Ankle Exam: Negative ankle edema Lower extremities: lower extremity edema Neuro/Mental Status: A&O x4. Coherent. Thoughts/Psych: Normal thought pattern. Appropriate mood and affect. Good judgement and insight Skin Exam: Normal inspection. Normal color. Warm. Dry Labs/Xrays Labs Test 01/22/25 11:47 Range/Units White Blood Count 6.3 4.4-10.8 10^3/uL Red Blood Count 3.90 L 4.5-5.90 10^6/uL Hemoglobin 10.1 L 13.5-17.5 g/dL Hematocrit 31.4 L 41.0-53.0 % Mean Corpuscular Volume 80.5 80.0-100.0 fL Mean Corpuscular Hemoglobin 25.8 L 28.0-32.0 pg Mean Corpuscular Hemoglobin Concent 32.1 32.0-36.0 g/dL Red Cell Distribution Width 19.1 H 11.8-14.3 % Platelet Count 226 140-450 10^3/uL Mean Platelet Volume 6.7 L 6.9-10.8 fL Neutrophils (%) (Auto) 37.0-80.0 % Lymphocytes (%) (Auto) 10.0-50.0 % Monocytes (%) (Auto) 0.0-12.0 % Basophils (%) (Auto) 0.0-2.0 % Neutrophils # (Auto) 1.6-8.6 10 ^3/uL Lymphocytes # (Auto) 0.4-5.4 10 ^3/uL Monocytes # (Auto) 0-1.3 10 ^3/uL Differential Total Cells Counted 100.0 100 Neutrophils % (Manual) 74 37.0-80.0 Band Neutrophils % (Manual) 1 Lymphocytes % (Manual) 14 10.0-50.0 Monocytes % (Manual) 7 0-12 Eosinophils % (Manual) 2 0-7 Basophils % (Manual) 0 0.0-2.0 Metamyelocytes % (manual) 1 Myelocytes % (Manual) 0 Promyelocytes % (Manual) 0 Blast Cells % (Manual) 0 Nucleated Red Blood Cells 1.0 % Reactive Lymphocytes 1 Platelet Estimate Adequate Large Platelets Few Anisocytosis (manual) Slight Stomatocytes Few Sodium Level 136 136-145 mmol/L Potassium Level 4.8 3.5-5.1 mmol/L Chloride Level 104 98-107 mmol/L Carbon Dioxide Level 22 20-31 mmol/L Anion Gap 10 5-15 Blood Urea Nitrogen 19 9-23 mg/dL Creatinine 1.21 0.700-1.30 mg/dL Glomerular Filtration Rate Calc 59 >90 mL/min BUN/Creatinine Ratio 15.7 10.0-20.0 Serum Glucose 170 H 74-106 mg/dL Calcium Level 9.1 8.7-10.4 mg/dL SEPSIS Sepsis Screen Date sepsis recognized/suspect: Jan 22, 2025 Time Sepsis recognized/suspect: 1934 Recent Procedure: No On Antibiotic Therapy: No Respiratory Rate >20: No Heart Rate >90: Yes Temp<36 C (96.8 F) or >38.3 C: No SBP <90 or MAP <65 mmHG: No New Acute Mental Status Change: No Is the patient on CPAP, BIPAP,: No Vital Signs Date Time Temp Pulse Resp B/P (MAP) Pulse Ox O2 Delivery O2 Flow Rate FiO2 01/22/25 20:00 98.1 92 18 158/85 (109) 94 98.1 01/22/25 20:00 119 01/22/25 19:35 16 94 Room Air* 0 21 01/22/25 18:00 97 21 154/77 (102) 94 01/22/25 16:57 153/72 01/22/25 16:00 98 01/22/25 16:00 93 19 152/76 (101) 93 01/22/25 14:24 83 01/22/25 14:00 89 14 148/79 (102) 95 Laboratory Tests Test 01/22/25 11:47 White Blood Count 6.3 10^3/uL (4.4-10.8) Medications Medications Dose Ordered Sig/Yosvany Route Start Time Stop Time Status Last Admin Dose Admin Furosemide 40 mg ONCE ONCE IV 01/22/25 16:15 01/22/25 16:16 DC 01/22/25 16:57 40 MG Sodium Chloride 500 ml @ 500 mls/hr Q1H ONCE IV 01/22/25 11:45 01/22/25 12:44 DC 01/22/25 12:40 500 MLS/HR Assessment/Plan Assessment/Plan Generalized weakness likely secondary to metastatic prostate cancer Pathologic fracture due to metastasis Chronic anemia likely due to above Abdomen/Pelvis CT: Superior endplate burst fracture of L5, presumably pathologic.Extensive blastic metastatic disease throughout the visualized bony structures. PSA Total + %Free pending Atrial fibrillation, rate controlled on warfarin Acute on chronic CHF exacerbation, HFpEF (EF: 55%, 02/22/24) Abdomen/Pelvis CT: Cardiomegaly, coronary artery disease, pleural effusions, and interstitial prominence in the lung bases suggestive of CHF. Echocardiogram pending Furosemide 40 mg daily IV Acute hypoxic respiratory failure Albuterol 2.5 mg NEB q6h prn Constipation Abdomen/Pelvis CT: Fecal retention throughout the colon suggestive of constipation. Lung nodule Abdomen/Pelvis CT: Left lower lobe 13 mm noncalcified pulmonary nodule is molina spicious for metastatic disease. Chronic renal cyst Abdomen/Pelvis CT: Left lower lobe 13 mm noncalcified pulmonary nodule is suspicious for metastatic disease. Hypertension Metoprolol 25 mg Ruled out DVT Extremity venous study: No right or left femoropopliteal venous thrombosis. Diet: Full liquid DVT prophylaxis: Lovenox 100 mg mcg Goals of care: Full code, discussed for >16 minutes on 01/22/25 Plan discussed with patient Plan discussed with Dr. Alaniz Plan discussed with: Patient, Other Date of Service: Jan 23, 2025 Billing Provider: SRINIVASAN ALANIZ MD Common Visit Codes: 65829-[id number] INP/OBS CARE (HIGH) Secondary Visit Codes: [id number] CARE PLAN 30 MINUTES ANALILIA SERRANO RESIDENT Jan 22, 2025 21:50 SRINIVASAN ALANIZ MD Jan 23, 2025 17:04
[2025-01-22] MEDS: LABETALOL HCL 20 MG/4 ML VL IV ONE (22:28)
[2025-01-22] MEDS: ENOXAPARIN SOD 100 MG/1 ML SYRINGE SC SCH (22:29)
[2025-01-22] MEDS: METOPROLOL TARTRATE 25 MG TAB PO ONE (22:29)
[2025-01-22] MEDS: SODIUM CHLOR 0.9% PF (SALINE LOCK) 10ML VIAL/SYR IV SCH (22:30)
[2025-01-22 22:34] LABS: Alanine Aminotransferase 14 U/L (7-40); Albumin 3.8 g/dL (3.2-4.8); Magnesium 1.9 mg/dL (1.6-2.6); Total Protein 8.0 g/dL (5.7-8.2)
[2025-01-22 22:35] LABS: Bilirubin, Direct 0.2 mg/dL (<0.3); Bilirubin, Total 0.5 mg/dL (0.2-1.0)
[2025-01-22 22:38] LABS: Free T4 (Free Thyroxine) 1.06 ng/dL (0.89-1.76)
[2025-01-22 22:51] LABS: Alkaline Phosphatase > 2300 U/L (46-116)
--- NOTE | 2025-01-22 23:11 | DVH ---
CHEST RADIOGRAPH Indication: chest pain Technique: Single frontal view of the chest was obtained COMPARISON: XY CHEST TWO VIEWS ROUTINE on DOS: 02/21/24, CT CHEST WITHOUT CONTRAST on DOS: 12/27/23, C T CHEST WITHOUT CONTRAST on DOS: 06/09/23, XY CHEST PORTABLE on DOS: 06/08/23, CHEST WITHOUT CONTRAST on DOS: 02/07/22 FINDINGS: Lines and Tubes: None Lungs: Diminished lung volumes with concomitant crowding of the pulmonary vasculature. No evidence o f focal consolidation. Pleura: No effusion. No pneumothorax. Cardiomediastinal contours: Unremarkable Bones: Unremarkable IMPRESSION: 1. Diminished lung volumes with concomitant crowding of the pulmonary vasculature. 2. No evidence of focal consolidation.
--- NOTE | 2025-01-22 23:11 | DVH ---
Bilateral lower extremity venous duplex Clinical History: rule out DVT Comparison: None Technique: Duplex Doppler evaluation of the deep venous systems of both lower extremities from the common femora l veins to the popliteal veins including color Doppler and spectral/pulsed waveform analysis was perf ormed. Findings: RIGHT SIDE: The common femoral vein demonstrates appropriate compressibility and waveform variability. There is compressibility/patency of the great saphenous vein at the proximal thigh. The femoral vein demonstrates appropriate compressibility and waveform variability. The deep femoral vein demonstrates appropriate compressibility and waveform variability. The popliteal vein demonstrates appropriate compressibility and waveform variability. There is normal compressibility at the tibioperoneal trunk. LEFT SIDE: The common femoral vein demonstrates appropriate compressibility and waveform variability. There is compressibility/patency of the great saphenous vein at the proximal thigh. The femoral vein demonstrates appropriate compressibility and waveform variability. The deep femoral vein demonstrates appropriate compressibility and waveform variability. The popliteal vein demonstrates appropriate compressibility and waveform variability. There is normal compressibility at the tibioperoneal trunk. Impression: 1. No right or left femoropopliteal venous thrombosis.
[2025-01-22] MEDS: AZITHROMYCIN 250 MG TAB PO ONE (23:24)
[2025-01-22] MEDS: GABAPENTIN 300 MG CAP PO ONE (23:24)
[2025-01-22] MEDS: ATORVASTATIN 20 MG TAB PO ONE (23:24)
[2025-01-22] MEDS ORDERED: ALBUTEROL SULF 2.5 MG/0.5ML(0.5%) NEB SOLN NEB PRN (23:30)
[2025-01-22] MEDS: INSULIN 70/30 1unit/0.01ml Susp (100units/ml) SC ONE (23:49)
[2025-01-23] VITALS (13 sets, daily range): BP systolic 106–154; BP diastolic 70–86; PULSE 90–104; RESP 16–19; TEMP 97.7–98.4; O2SAT 93–96
[2025-01-23] MEDS ORDERED: ALBUTEROL SULF HFA 90MCG INH 200DOSE IN SCH
[2025-01-23] MEDS ORDERED: DEXTROSE (50%) 50ML SYRG IV PRN
[2025-01-23] MEDS: BISACODYL 5 MG EC TAB PO ONE (00:15)
[2025-01-23] MEDS: LACTULOSE 20Gm/30ML SOLN PO ONE (01:13)
[2025-01-23 06:35] LABS: Mean Corpuscular Volume 79.6 fL (80.0-100.0)
[2025-01-23 06:37] LABS: Hematocrit 29.5 % (41.0-53.0); Hemoglobin 10.0 g/dL (13.5-17.5); Mean Corpuscular Hemoglobin 27.0 pg (28.0-32.0); Nucleated Red Blood Cells % 0.3 %
[2025-01-23 06:46] LABS: Alanine Aminotransferase 14 U/L (7-40); Albumin 3.6 g/dL (3.2-4.8); Anion Gap 11 (5-15); BUN/Creatinine Ratio 17.5 (10.0-20.0); Bilirubin, Total 0.6 mg/dL (0.2-1.0); Blood Urea Nitrogen 22 mg/dL (9-23); Calcium 8.7 mg/dL (8.7-10.4); Carbon Dioxide 25 mmol/L (20-31); Chloride 103 mmol/L (98-107); Potassium 4.5 mmol/L (3.5-5.1); Sodium 139 mmol/L (136-145); Total Protein 7.6 g/dL (5.7-8.2)
[2025-01-23] MEDS: LEVOTHYROXINE SODIUM 25 MCG TAB PO SCH (06:48)
[2025-01-23] MEDS: InsuLIN REG 1unit/0.01ml Soln (100units/ml) SC SCH (06:50)
[2025-01-23] MEDS: ACCU-CHEK COMFORT CURVE STRIP VI SCH (06:51)
[2025-01-23 06:52] LABS: Glucose 129 mg/dL (74-106)
[2025-01-23 06:57] LABS: Alkaline Phosphatase > 2300 U/L (46-116)
[2025-01-23] MEDS ORDERED: PREDNISONE 40 MG PO SCH (07:00)
[2025-01-23] MEDS ORDERED: LEVOTHYROXINE SODIUM PO SCH (07:00)
[2025-01-23] MEDS ORDERED: INSULIN 70/30 1unit/0.01ml Susp (100units/ml) SC SCH (08:00)
[2025-01-23] MEDS: GABAPENTIN 300 MG CAP PO SCH (09:03)
[2025-01-23] MEDS: METOPROLOL TARTRATE 25 MG TAB PO SCH (09:04)
[2025-01-23] MEDS: LOSARTAN POTASSIUM 50 MG TAB PO SCH (09:04)
[2025-01-23] MEDS: FUROSEMIDE 40 MG/4 ML VIAL IV SCH (09:05)
[2025-01-23 09:19] LABS: INR 1.73 (0.9-1.15); Partial Thromboplastin Time 40.2 SEC (24.5-34.5); Prothrombin Time 17.4 sec (9.3-11.8)
[2025-01-23] MEDS ORDERED: POLYETHYLENE GLYCOL 17 GM PWDR PO PRN (09:30)
[2025-01-23] MEDS ORDERED: AZITHROMYCIN 250 MG TAB PO SCH (10:00)
[2025-01-23] MEDS ORDERED: POTASSIUM CHL 10 Meq TABLET PO SCH (10:00)
[2025-01-23] MEDS ORDERED: PATIENTS OWN MEDICATION (Potassium Chloride (Potassium Chloride Cr) 1 TAB) PO SCH (10:00)
[2025-01-23] MEDS ORDERED: PATIENTS OWN MEDICATION (Losartan Potassium 1 TAB) PO SCH (10:00)
[2025-01-23] MEDS ORDERED: predniSONE 20 MG TAB PO SCH (10:00)
--- NOTE | 2025-01-23 10:50 | DVHINCON2 ---
Consultation - Surgical Date Seen: Jan 23, 2025 Referring Physician Referring Physician Attending Doctor: Tram Cortés Resident Reason for Consultation Low back pain History of Present Illness History of Present Illness History of Present Illness Patient is a Hong Konger-speaking 84-year-old male with past medical history of atrial fibrillation, diabetes mellitus, hyperlipidemia, hypertension, and prostate cancer presented to [facility] ED with complaint of generalized weakness. Per EMS, the patient has been experiencing worsening weakness and back pain since a fall approximately one month ago. He was previously evaluated at [facility] and [facility] for similar symptoms, with reportedly unremarkable imaging and lab results. The patient states that since the fall, he has had increasing difficulty ambulating. He denies numbness, tingling, abdominal pain, excessive thirst, urinary frequency or urgency, and blurred vision. On evaluation in the ED, patient is afebrile, blood pressure was 177/98 mmHg. Initial labs show significant serum glucose 170, AST 25 and ALT >2300. Abdominal CT shows superior endplate burst fracture of L5, presumably pathologic. Extensive blastic metastatic disease throughout the visualized bony structures. The patient was placed full liquid diet and started on IV antibiotics and IV fluids. Patient is admitted for further evaluation and management. Past Medical/Surgical History Past Medical/Surgical History Past Medical History AFIB, Prostate Cancer, DM, High Lipids, HTN, hypothyroidism Past Surgical History: None Family and Social History Family and Social History Family History: None Smoke: No ALCOHOL: none Drugs: None Allergies and medications Allergies: Coded Allergies: NO KNOWN ALLERGIES (Unverified , 11/01/16) Home Meds Active Scripts Potassium Chloride (POTASSIUM CHLORIDE CR) 10 Meq Tb, 1 TAB PO DAILY, #30 TAB 0 Refills Prov:SRINIVASAN SALOMON MD 02/22/24 Prednisone (Prednisone) 20 Mg Tab, 40 MG PO QAM for 5 Days, #10 MG Prov:SRINIVASAN SALOMON MD 02/22/24 Reported Medications Losartan Potassium (Losartan Potassium) 100 Mg Tab, 1 TAB PO DAILY, #30 TAB 5 Refills 06/09/23 Warfarin Sodium (Warfarin Sodium) 3 Mg Tab, 2 TAB PO UD, #30 TAB 5 Refills 06/09/23 Levothyroxine Sodium (Levothyroxine Sodium) 75 Mcg Tab, 0.5 TAB PO QAM 02/07/22 Insulin Isophane & Reg (Human) (Humulin 70/30 (70-30) 100 Unit/ml) 1 Units/0.01 Ml Inj, 8 UNITS SC BID 02/07/22 Metoprolol Tartrate (Metoprolol Tartrate) 25 Mg Tab, 25 MG PO BID, #60 TAB 08/29/14 Atorvastatin Calcium (ATORVASTATIN CALCIUM) 40 Mg Tab, 1 TAB PO QPM, #30 TAB 3 Refills 08/29/14 Review of systems Review of Systems: MSK:Abnormal (superior endplate burst fracture of L5, presumably pathologic. Extensive blastic metastatic disease throughout the visualized bony structures) Examination Vital signs Vital Signs Date Time Temp Pulse Resp B/P (MAP) Pulse Ox O2 Delivery O2 Flow Rate FiO2 01/23/25 10:00 94 Room Air* 0 21 01/23/25 09:05 128/75 01/23/25 09:04 93 01/23/25 08:00 17 01/23/25 05:00 98.4 98.4 Medications Current Medications Medications (Trade) Dose Ordered Sig/Yosvany Route PRN Reason Start Time Stop Time Status Last Admin Sodium Chloride (Saline Lock Ns) 10 ml Q8HR IV 01/22/25 22:00 01/23/25 06:45 Ondansetron HCl (Zofran) 4 mg Q4HP PRN IV NAUSEA / VOMITING 01/22/25 21:45 Enoxaparin Sodium (Lovenox) 100 mg Q12HR SC 01/22/25 22:00 01/23/25 09:05 Furosemide (Lasix Injection) 40 mg DAILY IV 01/23/25 10:00 01/23/25 09:05 Metoprolol Tartrate (Lopressor Tablet) 25 mg BID PO 01/23/25 10:00 01/23/25 09:04 Albuterol (Ventolin Hfa) 90 mcg Q6HP IN 01/23/25 00:00 01/22/25 23:27 DC Atorvastatin Calcium (Lipitor) 40 mg HS PO 01/23/25 22:00 01/22/25 23:56 DC Azithromycin (Zithromax Tablet) 250 mg DAILY PO 01/23/25 10:00 01/22/25 23:56 DC Gabapentin (Neurontin Capsule) 300 mg BID PO 01/23/25 10:00 01/23/25 09:03 Insulin Human Isoph/Insulin Regular (HumuLIN 70/30) 8 units BID@08,18 SC 01/23/25 08:00 01/22/25 23:56 DC Patient Own Medication 0.5 tab QAM PO 01/23/25 07:00 01/22/25 22:44 DC Patient Own Medication 1 tab DAILY PO 01/23/25 10:00 01/22/25 22:44 DC Patient Own Medication 1 tab DAILY PO 01/23/25 10:00 01/22/25 22:44 DC Patient Own Medication 40 mg QAM PO 01/23/25 07:00 01/22/25 22:45 DC Levothyroxine Sodium (Synthroid Tablet) 37.5 mcg QAM@0600 PO 01/23/25 06:00 01/23/25 06:48 Losartan Potassium (Cozaar Tablet) 100 mg DAILY PO 01/23/25 10:00 01/23/25 09:04 Potassium Chloride (Klor-Con Tablet) 10 meq DAILY PO 01/23/25 10:00 01/22/25 23:56 DC Prednisone 40 mg DAILY PO 01/23/25 10:00 01/22/25 23:56 DC Albuterol (Ventolin Medneb) 2.5 mg Q6HPRN PRN NEB SHORTNESS OF BREATH 01/22/25 23:30 Diagnostic Test (Pha) (Accu-Chek Comfort Curve T) 1 strip ACHS 01/23/25 07:00 01/23/25 06:51 Insulin Human Regular (InsuLIN R) [facility] SC 01/23/25 07:00 01/23/25 06:50 Dextrose 50 ml UD PRN IV Blood Sugar LESS THAN 60 01/23/25 00:00 Polyethylene Glycol (Miralax 17GM Powder) 17 gm DAILYPRN PRN PO FOR CONSTIPATION 01/23/25 09:30 Laboratory Labs Test 01/23/25 08:27 01/23/25 06:27 01/23/25 05:49 01/22/25 22:24 Range/Units Prothrombin Time 17.4 H 9.3-11.8 sec Prothrombin Time INR 1.73 H 0.9-1.15 Activated Partial Thromboplast Time 40.2 H 24.5-34.5 SEC POC Glucose 131 H 70-106 mg/dl White Blood Count 6.2 4.4-10.8 10^3/uL Red Blood Count 3.71 L 4.5-5.90 10^6/uL Hemoglobin 10.0 L 13.5-17.5 g/dL Hematocrit 29.5 L 41.0-53.0 % Mean Corpuscular Volume 79.6 L 80.0-100.0 fL Mean Corpuscular Hemoglobin 27.0 L 28.0-32.0 pg Mean Corpuscular Hemoglobin Concent 33.9 32.0-36.0 g/dL Red Cell Distribution Width 19.7 H 11.8-14.3 % Platelet Count 193 140-450 10^3/uL Mean Platelet Volume 6.6 L 6.9-10.8 fL Neutrophils (%) (Auto) 73.2 37.0-80.0 % Lymphocytes (%) (Auto) 14.0 10.0-50.0 % Monocytes (%) (Auto) 10.6 0.0-12.0 % Eosinophils (%) (Auto) 1.4 0.0-7.0 % Basophils (%) (Auto) 0.8 0.0-2.0 % Neutrophils # (Auto) 4.5 1.6-8.6 10 ^3/uL Lymphocytes # (Auto) 0.9 0.4-5.4 10 ^3/uL Monocytes # (Auto) 0.6 0-1.3 10 ^3/uL Eosinophils # (Auto) 0.1 0-0.8 10 ^3/uL Basophils # (Auto) 0 0-0.2 10 ^3/uL Nucleated Red Blood Cells 0.3 % Sodium Level 139 136-145 mmol/L Potassium Level 4.5 3.5-5.1 mmol/L Chloride Level 103 98-107 mmol/L Carbon Dioxide Level 25 20-31 mmol/L Anion Gap 11 5-15 Blood Urea Nitrogen 22 9-23 mg/dL Creatinine 1.26 0.700-1.30 mg/dL Glomerular Filtration Rate Calc 56 >90 mL/min BUN/Creatinine Ratio 17.5 10.0-20.0 Serum Glucose 129 H 74-106 mg/dL Calcium Level 8.7 8.7-10.4 mg/dL Total Bilirubin 0.6 0.2-1.0 mg/dL Gamma Glutamyl Transpeptidase 54 <73 U/L Aspartate Amino Transferase (AST) 50 H 13-40 U/L Alanine Aminotransferase (ALT) 14 7-40 U/L Alkaline Phosphatase > 2300 H 46-116 U/L Total Protein 7.6 5.7-8.2 g/dL Albumin 3.6 3.2-4.8 g/dL Lactic Acid Level 1.5 0.4-2.0 mmol/L Test 01/22/25 11:47 Range/Units Differential Total Cells Counted 100.0 100 Neutrophils % (Manual) 74 37.0-80.0 Band Neutrophils % (Manual) 1 Lymphocytes % (Manual) 14 10.0-50.0 Monocytes % (Manual) 7 0-12 Eosinophils % (Manual) 2 0-7 Basophils % (Manual) 0 0.0-2.0 Metamyelocytes % (manual) 1 Myelocytes % (Manual) 0 Promyelocytes % (Manual) 0 Blast Cells % (Manual) 0 Reactive Lymphocytes 1 Platelet Estimate Adequate Large Platelets Few Anisocytosis (manual) Slight Stomatocytes Few Magnesium Level 1.9 1.6-2.6 mg/dL Direct Bilirubin 0.2 <0.3 mg/dL B-Type Natriuretic Peptide 419.52 0-100 pg/mL Thyroid Stimulating Hormone (TSH) 3.40 0.55-4.78 uIU/mL Free Thyroxine (T4) Calculated 1.06 0.89-1.76 ng/dL Total Triiodothyronine (TT3) 1.21 0.60-1.81 ng/mL Examination: GENERAL:Abnormal (patient is ill apearing), HEENT:Normal, NECK:Normal (no dostress noted ), CVS:Normal (skin PWD), MSK:Normal (all long bones intact, no C/O pain at this time, deconditioned state weak due to this 3/5 all extremities), NEURO:Normal Problem List/Assessment/Plan Problems: (1) DDD (degenerative disc disease), lumbosacral (2) Generalized weakness (3) Back pain (4) 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 Extensive blastic metastatic disease throughout the visualized bony structures Conservative management with a TLSO brace Continue care and support per admitting team's discretion Physical therapy evaluation, treatment recommendations and safe discharge planning recommendations- TLSO brace for mobilization Effective pain management including muscle relaxers if the patient is c omplaining of muscle spasms Due to the patient's existing extensive blastic metastatic disease conservative management is the best course of action at this time Patient needs to continue following the direction of his oncologist Patient does not need emergent spine surgery at this time, with the degree of edison mets a kyphoplasty is contraindicated with his drgree of extensive blastic metastatic disease Once the patient is comfortable and at baseline OR able to safely ambulate after evaluation of physical therapy there are no barriers to discharge from a spine surgery perspective Call with fátima Mcdonald [facility] Orthopaedic Spine Surgery nurse practitioner For Dr Althea Bernstein Patient was examined, chart reviewed, labs evaluated, and diagnostic studies and findings analyzed. Case was discussed with Dr. Brendon Bernstein who formulated the plan of care. This medical document was created using an electronic medical record system with [employer] dictation system. Although this document has been carefully reviewed, there might still be some phonetic and typographical errors. These areas are purely typographical due to imperfections of the software programs, and do not reflect any compromise in the patient's medical care. Plan discussed with Plan discussed with: Patient, Daughter, Other Visit Coding Surgery Date of Service if different f: Jan 23, 2025 Billing Provider: RAJIV MCDONALD NP Surgery Visit Codes: 88799 - INP CONSULT <55 MIN RAJIV MCDONALD NP Jan 23, 2025 10:50
[2025-01-23] MEDS: POLYETHYLENE GLYCOL 17 GM PWDR PO ONE (11:03)
[2025-01-23] MEDS ORDERED: GADOTERATE MEG 10 MMOL/20ml INJ (0.5MMOL/ml) IV ONE (13:48)
--- NOTE | 2025-01-23 15:19 | DVH ---
CLINICAL HISTORY: mets TECHNIQUE: MRI of the brain was performed with and without IV contrast. COMPARISON: None FINDINGS: There is no abnormal restricted diffusion to suggest acute infarction. There are no significant chronic small vessel ischemic foci. There is no evidence for acute ischemic changes. There is no hydrocephalus or midline shift. The cere bral sulci and subarachnoid cisterns are not effaced. Small right mastoid effusion. The globes are intact. The midline structures, including the corpus annemarie losum, are unremarkable. The intracranial flow voids are maintained. There are small sclerotic lesions throughout the imaged skeletal structures. There are adjacent 1.4 cm and 1.3 cm left lateral temporal extra-axial avidly enhancing masses. Ther e is no adjacent vasogenic edema. IMPRESSION: Adjacent 1.4 and 1.3 cm left lateral temporal extra-axial avidly enhancing masses. Differential inclu patricia meningiomas and metastases. Recommend 2 month MRI contrast-enhanced MRI follow-up for re-evaluati on. Diffuse osteoblastic metastases.
--- NOTE | 2025-01-23 21:25 | DVHINCON2 ---
Consult Note Consult Consult Note Reason for Consultation: Lower back pain evaluation of lumbar compression fracture. History of Present Illness: Fausto Knox is a patient admitted through the Emergency Department for persistent lower back pain ongoing for approximately one month. The patient is unsure of any specific traumatic event but reports progressive worsening pain in the lumbar region. During todays interview, the patient reported a known history of prostate cancer with metastasis to bone and is currently under the care of an oncologist. Pain has been significant, leading to hospital admission for pain management. Review of imaging demonstrates an L5 compression fracture. The case was d iscussed with Dr. Juarez for orthopedic input. Past Medical History: Prostate cancer with known bone metastasis Physical Examination: General: Alert, oriented 3, resting comfortably in bed. Spine / Back: Tenderness to palpation over lower lumbar region ([id number]). No open lesions, step-offs, or gross deformity noted. Neurological: Motor: gross Strength intact in bilateral lower extremities. Sensory: Intact to light touch throughout. No saddle anesthesia, bowel, or bladder dysfunction reported. Extremities: Warm, well-perfused; distal pulses palpable. Imaging: CT 1. Cardiomegaly, coronary artery disease, pleural effusions, and interstitial prominence in the lung bases suggestive of CHF. 2. Left lower lobe 13 mm noncalcified pulmonary nodule is suspicious for metastatic disease. 3. Right renal inferior pole lobulated mildly complicated cyst. 4. Fecal retention throughout the colon suggestive of constipation. 5. Extensive blastic metastatic disease throughout the visualized bony structures. Please correlate with any known primary malignancy for this patient, as none was submitted in the history here. 6. Superior endplate burst fracture of L5, presumably pathologic. 7. No evidence of bowel obstruction, acute appendicitis, or other acute process in the abdomen or pelvis. Assessment: L5 vertebral compression fracture likely pathologic, secondary to metastatic prostate cancer. History of prostate cancer with osseous metastasis. Neurovascularly intact on examination. Plan: 1. TLSO Brace: TLSO brace fitted today for spinal stabilization and pain control. Educated patient on proper brace wear and precautions. 2. Activity: Out of bed as tolerated while wearing TLSO brace. Avoid bending, twisting, or heavy lifting. 3. Pain Management: Continue multimodal pain regimen per primary team. 4. Oncology Coordination: Continue close follow-up with oncologist for further management of metastatic disease and evaluation of bone stability. 5. Follow-up: Schedule outpatient orthopedic follow-up in 23 weeks for reassessment and possible repeat imaging. 6. Discussion: Case discussed with Dr. Juarez. Patient/Family and nursing staff counseled on diagnosis, brace use, and follow- up plan. All questions answered; patient verbalized understanding and agreement with the plan. Plan discussed with: Patient, Other (bedside nurse and family) Visit Coding Surgery Date of Service if different f: Jan 23, 2025 Billing Provider: JESENIA ORDOÑEZ Surgery Visit Codes: 19029 - INP CONSULT <55 MIN JESENIA ORDOÑEZ Jan 23, 2025 21:25
--- NOTE | 2025-01-23 21:50 | DVHPNRES ---
Progress Note Date Seen: Jan 23, 2025 Resident Creating Document: MAYA BARBOUR RESIDENT Has the PT tested + for MRSA If YES, has PT been informed?: No Medical Necessity Reason Pt with a Central, PICC or Fol: No Subjective Review of Systems Abilio Servin is a 84-year-old male, with past medical history of atrial fibrillation, diabetes mellitus, hyperlipidemia, hypertension, hypothyroidism and prostate cancer ( on radiotherapy in skipwith). The came to the ED via EMS with complaint of 1 month of back pain 8/10, localized in the lower back, associated with dificulty to walk and generalized weakness. The patient reports he mejia been experiencing worsening weakness and back pain since a fall approximately one month ago. He was previously evaluated at [facility] and [facility] for similar symptoms, with reportedly unremarkable imaging and lab results. The patient states that since the fall, he has had increasing difficulty ambulating. He denies numbness, tingling, abdominal pain, excessive thirst, urinary frequency or urgency, and blurred vision. In the ED, patient VS: BP:177/98 mmHg. Initial labs show significant serum glucose 170, AST 25 and ALT >2300. Abdominal CT showed: superior endplate burst fracture of L5, presumably pathologic. Extensive blastic metastatic disease throughout the visualized bony structures. The patient was placed full liquid diet and started on IV antibiotics and IV fluids. Past Medical History AFIB, Prostate Cancer, DM, High Lipids, HTN, hypothyroidism Past Surgical History: None Family History: no relevant. The patient denies alcohol usage, smoking or drugs. Admission course: Today 01/23/25, the patient was evaluated and examined at bedside, the patient reports back pain 6/10, feeling better, no new complaints. MRI of the brain was ordered today to rule out brain metastasis. I spoke with the patient about hospice care, the patient will discussed with family. Dr. Alaniz spoke with the patient and his family and he agreed to hospice care. Social service consult for hospice was placed. ROS: Constitutional: No: Fever, Chills, Sweats, Weakness, Malaise, Other Eyes: No: Pain, Vision change, Conjunctivae inflammation, Eyelid inflammation, Other, Redness ENT: No: Ear pain, Ear discharge, Nose pain, Nose discharge, Nose congestion, Mouth pain, Mouth swelling, Throat pain, Throat swelling, Other Respiratory: No: Cough, Dry, SOB with excertion, Wheezing, Hemoptysis, Pleuritic Pain, Sputum, Wheezing, Other Cardiovascular: Chest Pain; No: Palpitations, Orthopnea, Paroxysmal Noc. Dyspnea, Edema, Lt Headedness, Other Gastrointestinal: No: Nausea, Vomiting, Abdominal Pain, Diarrhea, Constipation, Melena, Hematochezia, Other Genitourinary: No Dysuria, No Frequency, No Incontinence, No Hematuria, No Retention, No Other Musculoskeletal: Lumbar back pain, denies: shoulder pain, arm pain, hand pain, leg pain, foot pain Skin: No: Rash, Lesions, Jaundice, Bruising, Other Neurological: No: Weakness, Numbness, Incoordination, Change in speech, Confusion, Seizures, Other Allergies: NO KNOWN ALLERGIES Objective vital signs Vital Sign Date Time Temp Pulse Resp B/P (MAP) Pulse Ox O2 Delivery O2 Flow Rate FiO2 01/23/25 17:00 97.8 90 18 106/70 (82) 93 97.8 01/23/25 10:00 Room Air* 0 21 Total Intake and Output 01/22/25 01/22/25 01/23/25 15:00 23:00 07:00 Intake Total 500 ml 200 ml Output Total 100 ml Balance 500 ml 100 ml medications Current Medications Medications Dose Ordered Sig/Yosvany Route Start Time Stop Time Status Last Admin Dose Admin Sodium Chloride 10 ml Q8HR IV 01/22/25 22:00 01/23/25 14:00 10 ML Ondansetron HCl 4 mg Q4HP PRN IV 01/22/25 21:45 Enoxaparin Sodium 100 mg Q12HR SC 01/22/25 22:00 01/23/25 09:05 100 MG Furosemide 40 mg DAILY IV 01/23/25 10:00 01/23/25 09:05 40 MG Metoprolol Tartrate 25 mg BID PO 01/23/25 10:00 01/23/25 09:04 25 MG Gabapentin 300 mg BID PO 01/23/25 10:00 01/23/25 09:03 300 MG Levothyroxine Sodium 37.5 mcg QAM@0600 PO 01/23/25 06:00 01/23/25 06:48 37.5 MCG Losartan Potassium 100 mg DAILY PO 01/23/25 10:00 01/23/25 09:04 100 MG Albuterol 2.5 mg Q6HPRN PRN NEB 01/22/25 23:30 Diagnostic Test (Pha) 1 strip ACHS 01/23/25 07:00 01/23/25 17:00 1 STRIP Insulin Human Regular ACHS SC 01/23/25 07:00 01/23/25 18:44 2 UNITS Dextrose 50 ml UD PRN IV 01/23/25 00:00 Polyethylene Glycol 17 gm DAILYPRN PRN PO 01/23/25 09:30 Examination General Appearance: patient in mild distress due to back pain, alert, oriented X3, Cooperative. HEENT: Atraumatic, PERRLA, EOMI, Mucous membrane moist/pink Respiratory: . normal lung expansion and sounds Cardiovascular: Regular rate, Normal S1, Normal S2, No murmurs, no chest wall tenderness Abdominal: Normal bowel sounds, Soft, No tenderness, No hepatospenomegaly, No masses Extremities: No clubbing, No cyanosis, No edema, Normal pulses, No tenderness/swelling Skin: No rashes, No breakdown, No significant lesion Neuro: Grossly intact cranial nerves Cranial nerves 3-12 NL, Reflexes 2+ Psych/Mental Status: Normal mood. laboratory and microbiology Laboratory Tests 01/23/25 05:49 Test 01/23/25 05:49 Range/Units Serum Glucose 129 H 74-106 mg/dL Problem List/Assessment/Plan Problem List/Assessment/Plan #Generalized weakness likely secondary to metastatic prostate cancer #Pathologic fracture due to metastasis #Chronic anemia likely due to above Abdomen/Pelvis CT: Superior endplate burst fracture of L5, presumably pathologic.Extensive blastic metastatic disease throughout the visualized bony structures. PSA Total + %Free pending #Atrial fibrillation, rate controlled on warfarin #Acute on chronic CHF exacerbation, HFpEF (EF: 55%, 02/22/24) Abdomen/Pelvis CT: Cardiomegaly, coronary artery disease, pleural effusions, and interstitial prominence in the lung bases suggestive of CHF. Echocardiogram pending Furosemide 40 mg daily IV #Acute hypoxic respiratory failure Albuterol 2.5 mg NEB q6h prn # Cronic constipation Abdomen/Pelvis CT: Fecal retention throughout the colon suggestive of constipation. #Lung nodule, possible lung metastasis Abdomen/Pelvis CT: Left lower lobe 13 mm noncalcified pulmonary nodule is suspicious for metastatic disease. #Chronic renal cyst #Kidney metastasis Abdomen/Pelvis CT: Left lower lobe 13 mm noncalcified pulmonary nodule is suspicious for metastatic disease. #Essential Hypertension Metoprolol 25 mg #DM type 2 Insulin Sliding scale HbA1c #Transaminitis AST: 50 #Anemia, rule out anemia of chronic disease. Hb: 10.1 FOBT Iron studies. vit B12 #Ruled out DVT Extremity venous study: No right or left femoropopliteal venous thrombosis. #Hypothyroidism TSH Levothyroxine po #Rule out brain Metastases Brain MRI Diet: Mechanical soft DVT prophylaxis Goals of care discussed with the patient > 35 min. Discussed plan of care with Dr. Alaniz Code status: Full code PCP: Dr. Strong. Plan discussed with: Patient, the patient agrees with the plan. Plan discussed with: Patient My Orders My Orders Orders - MAYA BARBOUR RESIDENT Procedure Category Date Status Time * Application Analyst CONS 01/23/25 Transmitted Consult Date of Service: Jan 23, 2025 Billing Provider: SRINIVASAN ALANIZ MD Common Visit Codes: [id number] INP/OBS CARE(HIGH) MAYA BARBOUR RESIDENT Jan 23, 2025 21:50
[2025-01-23] MEDS ORDERED: ATORVASTATIN 20 MG TAB PO SCH (22:00)
[2025-01-23 22:13] LABS: Cholesterol 116 mg/dL (< 200); HDL Cholesterol 22 mg/dL (40-59); Triglycerides 153 mg/dL (< 150)
[2025-01-24] VITALS (7 sets, daily range): BP systolic 112–135; BP diastolic 67–81; PULSE 84–98; RESP 16–18; TEMP 97–98.6; O2SAT 92–95
[2025-01-24 00:16] LABS: Iron 52.0 ug/dL (65-175)
[2025-01-24 00:20] LABS: Total Iron Binding Capacity 249.0 ug/dL (250-425)
[2025-01-24 06:07] LABS: Hematocrit 29.9 % (41.0-53.0); Hemoglobin 9.8 g/dL (13.5-17.5); Mean Corpuscular Hemoglobin 26.0 pg (28.0-32.0); Mean Corpuscular Volume 79.4 fL (80.0-100.0); Nucleated Red Blood Cells % 0.3 %
[2025-01-24 06:32] LABS: Albumin 3.6 g/dL (3.2-4.8); Anion Gap 10 (5-15); Blood Urea Nitrogen 21 mg/dL (9-23); Carbon Dioxide 26 mmol/L (20-31); Chloride 104 mmol/L (98-107); Potassium 4.2 mmol/L (3.5-5.1); Sodium 140 mmol/L (136-145); Total Protein 7.3 g/dL (5.7-8.2)
[2025-01-24 06:33] LABS: Bilirubin, Total 0.5 mg/dL (0.2-1.0)
[2025-01-24 07:29] LABS: Alanine Aminotransferase < 9 U/L (7-40); Alkaline Phosphatase > 2300 U/L (46-116); Calcium 8.3 mg/dL (8.7-10.4)
[2025-01-24 07:40] LABS: BUN/Creatinine Ratio 16.3 (10.0-20.0)
[2025-01-24 12:07] LABS: Prostate Specific Antigen 1471.0 ng/mL (0.0-4.0)
--- NOTE | 2025-01-24 20:19 | DVHDSRES ---
Discharge Summary Date of Admission Resident Creating Document: MAYA BARBOUR RESIDENT Jan 23, 2025 at 00:06 Date of Discharge: Jan 24, 2025 Admitting Diagnosis #Generalized weakness likely secondary to metastatic prostate cancer #L5 Pathologic fracture due to metastasis #Rule out DVT #Rule out brain metastases Wounds: No wounds on admission. Labs/Diagnostic Data: Laboratory Results Test 01/24/25 06:14 01/24/25 05:40 01/23/25 23:10 01/23/25 08:27 POC Glucose 127 mg/dl (70-106) White Blood Count 5.3 10^3/uL (4.4-10.8) Red Blood Count 3.76 10^6/uL (4.5-5.90) Hemoglobin 9.8 g/dL (13.5-17.5) Hematocrit 29.9 % (41.0-53.0) Mean Corpuscular Volume 79.4 fL (80.0-100.0) Mean Corpuscular Hemoglobin 26.0 pg (28.0-32.0) Mean Corpuscular Hemoglobin Concent 32.7 g/dL (32.0-36.0) Red Cell Distribution Width 19.5 % (11.8-14.3) Platelet Count 198 10^3/uL (140-450) Mean Platelet Volume 6.5 fL (6.9-10.8) Neutrophils (%) (Auto) 65.1 % (37.0-80.0) Lymphocytes (%) (Auto) 18.5 % (10.0-50.0) Monocytes (%) (Auto) 12.1 % (0.0-12.0) Eosinophils (%) (Auto) 3.4 % (0.0-7.0) Basophils (%) (Auto) 0.9 % (0.0-2.0) Neutrophils # (Auto) 3.5 10 ^3/uL (1.6-8.6) Lymphocytes # (Auto) 1.0 10 ^3/uL (0.4-5.4) Monocytes # (Auto) 0.6 10 ^3/uL (0-1.3) Eosinophils # (Auto) 0.2 10 ^3/uL (0-0.8) Basophils # (Auto) 0 10 ^3/uL (0-0.2) Nucleated Red Blood Cells 0.3 % Sodium Level 140 mmol/L (136-145) Potassium Level 4.2 mmol/L (3.5-5.1) Chloride Level 104 mmol/L (98-107) Carbon Dioxide Level 26 mmol/L (20-31) Anion Gap 10 (5-15) Blood Urea Nitrogen 21 mg/dL (9-23) Creatinine 1.29 mg/dL (0.700-1.30) Glomerular Filtration Rate Calc 55 mL/min (>90) BUN/Creatinine Ratio 16.3 (10.0-20.0) Serum Glucose mg/dL (74-106) Calcium Level 8.3 mg/dL (8.7-10.4) Total Bilirubin 0.5 mg/dL (0.2-1.0) Aspartate Amino Transferase (AST) 48 U/L (13-40) Alanine Aminotransferase (ALT) < 9 U/L (7-40) Alkaline Phosphatase > 2300 U/L (46-116) Total Protein 7.3 g/dL (5.7-8.2) Albumin 3.6 g/dL (3.2-4.8) Thyroid Stimulating Hormone (TSH) 3.27 uIU/mL (0.55-4.78) Iron Level 52 ug/dL (65-175) Total Iron Binding Capacity 249 ug/dL (250-425) Percent Iron Saturation 20.9 % (20-55) Vitamin B12 Level 1015 pg/mL (211-911) Vitamin D 25-Hydroxy 29.7 ng/mL (30.0-100) Prothrombin Time 17.4 sec (9.3-11.8) Prothrombin Time INR 1.73 (0.9-1.15) Activated Partial Thromboplast Time 40.2 SEC (24.5-34.5) Test 01/23/25 05:49 01/22/25 22:24 01/22/25 11:47 Hemoglobin A1c 8.8 % A1C (<5.7) Gamma Glutamyl Transpeptidase 54 U/L (<73) Triglycerides Level 153 mg/dL (< 150) Cholesterol Level 116 mg/dL (< 200) LDL Cholesterol 69 mg/dL (< 100) HDL Cholesterol 22 mg/dL (40-59) Lactic Acid Level 1.5 mmol/L (0.4-2.0) Free Prostate Specific Antigen >50.00 ng/mL (N/A) Percent Free Prostate Specific Ag >3.4 % (.) Prostate Specific Antigen Total 1471.0 ng/mL (0.0-4.0) Differential Total Cells Counted 100.0 (100) Neutrophils % (Manual) 74 (37.0-80.0) Band Neutrophils % (Manual) 1 Lymphocytes % (Manual) 14 (10.0-50.0) Monocytes % (Manual) 7 (0-12) Eosinophils % (Manual) 2 (0-7) Basophils % (Manual) 0 (0.0-2.0) Metamyelocytes % (manual) 1 Myelocytes % (Manual) 0 Promyelocytes % (Manual) 0 Blast Cells % (Manual) 0 Reactive Lymphocytes 1 Platelet Estimate Adequate Large Platelets Few Anisocytosis (manual) Slight Stomatocytes Few Magnesium Level 1.9 mg/dL (1.6-2.6) Direct Bilirubin 0.2 mg/dL (<0.3) B-Type Natriuretic Peptide 419.52 pg/mL (0-100) Free Thyroxine (T4) Calculated 1.06 ng/dL (0.89-1.76) Total Triiodothyronine (TT3) 1.21 ng/mL (0.60-1.81) Other Laboratory Tests 01/24/25 05:40 Brief Hx & Hospital Course: Abilio Servin is a 84-year-old male, with past medical history of atrial fibrillation, diabetes mellitus, hyperlipidemia, hypertension, hypothyroidism and prostate cancer ( on radiotherapy in [place]). The came to the ED via EMS with complaint of 1 month of back pain 8/10, localized in the lower back, associated with difficulty to walk and generalized weakness. The patient reports he mejia been experiencing worsening weakness and back pain since a fall approximately one month ago. He was previously evaluated at [facility] and [facility] for similar symptoms, with reportedly unremarkable imaging and lab results. The patient states that since the fall, he has had increasing difficulty ambulating. He denies numbness, tingling, abdominal pain, excessive thirst, urinary frequency or urgency, and blurred vision. In the ED, patient VS: BP:177/98 mmHg. Initial labs show significant serum glucose 170, AST 25 and ALT >2300. Abdominal CT showed: superior endplate burst fracture of L5, presumably pathologic. Extensive blastic metastatic disease throughout the visualized bony structures. The patient was placed full liquid diet and started on IV antibiotics and IV fluids. Past Medical History AFIB, Prostate Cancer, DM, High Lipids, HTN, hypothyroidism Past Surgical History: None Family History: no relevant. The patient denies alcohol usage, smoking or drugs. Admission course: On 01/23/25, the patient was evaluated and examined at bedside, the patient reports back pain 6/10, feeling better, no new complaints. MRI of the brain was ordered today to rule out brain metastasis. I spoke with the patient about hospice care, the patient will discussed with family. Dr. Alaniz spoke with the patient and his family and he agreed to hospice care. Social service consult for hospice was placed. On 01/24/25, the patient was evaluated and examined by bedside, VS, ;labs and chart was reviewed. The patient reports feeling better. his back pain is 3/10. On images, the brain MRI showed brain metastases, findings were explained to family that was by the patient's side ( and patient's daughters and granddaughter), hospice arrangements were discussed with the family, family verbalized that agrees with hospice plan. The patient will be discharge to hospice today. ROS: Constitutional: No: Fever, Chills, Sweats, Weakness, Malaise, Other Eyes: No: Pain, Vision change, Conjunctivae inflammation, Eyelid inflammation, Other, Redness ENT: No: Ear pain, Ear discharge, Nose pain, Nose discharge, Nose congestion, Mouth pain, Mouth swelling, Throat pain, Throat swelling, Other Respiratory: No: Cough, Dry, SOB with excertion, Wheezing, Hemoptysis, Pleuritic Pain, Sputum, Wheezing, Other Cardiovascular: Chest Pain; No: Palpitations, Orthopnea, Paroxysmal Noc. Dyspnea, Edema, Lt Headedness, Other Gastrointestinal: No: Nausea, Vomiting, Abdominal Pain, Diarrhea, Constipation, Melena, Hematochezia, Other Genitourinary: No Dysuria, No Frequency, No Incontinence, No Hematuria, No Retention, No Other Musculoskeletal: Lumbar back pain, denies: shoulder pain, arm pain, hand pain, leg pain, foot pain Skin: No: Rash, Lesions, Jaundice, Bruising, Other Neurological: No: Weakness, Numbness, Incoordination, Change in speech, Confusion, Seizures, Other Allergies: NO KNOWN ALLERGIES Physical Exam General Appearance:Non in distress, alert, oriented X3, Cooperative. HEENT: Atraumatic, PERRLA, EOMI, Mucous membrane moist/pink Respiratory: normal lung expansion and lung sounds Cardiovascular: Regular rate, Normal S1, Normal S2, No murmurs, no chest wall tenderness Abdominal: Normal bowel sounds, Soft, No tenderness, No hepatospenomegaly, No masses Extremities: Back, ROM limited by pain, no tenderness on palpation of the lumbar area. No clubbing, No cyanosis, No edema, Normal pulses, No tenderness/swelling Skin: No rashes, No breakdown, No significant lesion Neuro: Grossly intact cranial nerves Cranial nerves 3-12 NL, Reflexes 2+ Psych/Mental Status: Normal mood. Operations or Procedures [place]ED[place](s[place] [facility] [place] REASON: ORDER NUMBER(s): [id number], ACCESSION NUMBER(s): [id number] CLINICAL HISTORY: mets TECHNIQUE: MRI of the brain was performed with and without IV contrast. COMPARISON: None FINDINGS: There is no abnormal restricted diffusion to suggest acute infarction. There are no significant chronic small vessel ischemic foci. There is no evidence for acute ischemic changes. There is no hydrocephalus or midline shift. The cerebral sulci and subarachnoid cisterns are not effaced. Small right mastoid effusion. The globes are intact. The midline structures, including the corpus callosum, are unremarkable. The intracranial flow voids are maintained. There are small sclerotic lesions throughout the imaged skeletal structures. There are adjacent 1.4 cm and 1.3 cm left lateral temporal extra-axial avidly enhancing masses. There is no adjacent vasogenic edema. IMPRESSION: Adjacent 1.4 and 1.3 cm left lateral temporal extra-axial avidly enhancing masses. Differential includes meningiomas and metastases. Recommend 2 month MRI contrast-enhanced MRI follow-up for re-evaluation. Diffuse osteoblastic metastases. EDURE(s): BLDVT - BiLat Lower DVT REASON: rule out DVT ORDER NUMBER(s): [id number], ACCESSION NUMBER(s): [id number] Bilateral lower extremity venous duplex Clinical History: rule out DVT Comparison: None Technique: Duplex Doppler evaluation of the deep venous systems of both lower extremities from the common femoral veins to the popliteal veins including color Doppler and spectral/pulsed waveform analysis was performed. Findings: RIGHT SIDE: The common femoral vein demonstrates appropriate compressibility and waveform variability. There is compressibility/patency of the great saphenous vein at the proximal thigh. The femoral vein demonstrates appropriate compressibility and waveform variability. The deep femoral vein demonstrates appropriate compressibility and waveform variability. The popliteal vein demonstrates appropriate compressibility and waveform variability. There is normal compressibility at the tibioperoneal trunk. LEFT SIDE: The common femoral vein demonstrates appropriate compressibility and waveform variability. There is compressibility/patency of the great saphenous vein at the proximal thigh. The femoral vein demonstrates appropriate compressibility and waveform variability. The deep femoral vein demonstrates appropriate compressibility and waveform variability. The popliteal vein demonstrates appropriate compressibility and waveform variability. There is normal compressibility at the tibioperoneal trunk. Impression: 1. No right or left femoropopliteal venous thrombosis. EDURE(s): CXR1 - CHEST XRAY 1 VIEW REASON: chest pain ORDER NUMBER(s): [id number], ACCESSION NUMBER(s): [id number] CHEST RADIOGRAPH Indication: chest pain Technique: Single frontal view of the chest was obtained COMPARISON: XY CHEST TWO VIEWS ROUTINE on DOS: 02/21/24, CT CHEST WITHOUT CONTRAST on DOS: 12/27/23, CT CHEST WITHOUT CONTRAST on DOS: 06/09/23, XY CHEST PORTABLE on DOS: 06/08/23, CHEST WITHOUT CONTRAST on DOS: 02/07/22 FINDINGS: Lines and Tubes: None Lungs: Diminished lung volumes with concomitant crowding of the pulmonary vasculature. No evidence of focal consolidation. Pleura: No effusion. No pneumothorax. Cardiomediastinal contours: Unremarkable Bones: Unremarkable IMPRESSION: 1. Diminished lung volumes with concomitant crowding of the pulmonary vasculature. 2. No evidence of focal consolidation. : CT CT AB PEL WO CON-NO ORAL OR IV HISTORY: pain COMPARISON: PET-CT dated 10/09/2024 was not made available on the PACS system for viewing. TECHNIQUE: Helical CT images of the abdomen and pelvis were performed without IV contrast. Sagittal and coronal reformatted images were obtained. This CT exam was performed using one or more of the following dose reduction techniques: Automated exposure control, adjustment of the mA and/or kv according to patient size, or the use of iterative reconstruction techniques. Radiation Dose: Abdomen/Pelvis: CTDIvol 18.48 mGy, DLP 1130.82 mGy*cm. FINDINGS: CT abdomen: There is moderate bilateral gynecomastia. There are small right and small to moderate left pleural effusions. There are right posterior pleural calcifications. There is interstitial prominence in the lung bases. There is a 13 mm ovoid noncalcified pulmonary nodule in the left lower lobe ( image 10, series 2). There is borderline ectasia of the central pulmonary arteries. The heart is enlarged. There are coronary artery calcifications. There is a mildly complicated loculated right renal inferior pole cyst with thin wall calcifications. The noncontrast liver, spleen, gallbladder, pancreas, left kidney, and bilateral adrenal glands are unremarkable. No abdominal aortic aneurysm. There are thick atherosclerotic calcifications of the abdominal aorta and major branches. CT pelvis: No abnormal bowel dilatation, free air, or free fluid. There is fecal retention in the colon. The appendix and urinary bladder are unremarkable. There are fatty bilateral inguinal indirect hernias, slightly larger on the right. There are blastic metastatic lesions throughout the visualized bony structures. There is a superior endplate burst fracture of the L5 vertebral body. IMPRESSION: 1. Cardiomegaly, coronary artery disease, pleural effusions, and interstitial prominence in the lung bases suggestive of CHF. 2. Left lower lobe 13 mm noncalcified pulmonary nodule is suspicious for metastatic disease. 3. Right renal inferior pole lobulated mildly complicated cyst. 4. Fecal retention throughout the colon suggestive of constipation. 5. Extensive blastic metastatic disease throughout the visualized bony structures. Please correlate with any known primary malignancy for this patient, as none was submitted in the history here. 6. Superior endplate burst fracture of L5, presumably pathologic. 7. No evidence of bowel obstruction, acute appendicitis, or other acute process in the abdomen or pelvis. Condition at Discharge: Stable Final Diagnosis/Problems List #Generalized weakness likely secondary to metastatic prostate cancer #L5 Pathologic fracture due to metastasis #Chronic anemia likely due to above #Atrial fibrillation, rate controlled on warfarin #Acute on chronic CHF exacerbation, HFpEF (EF: 55%, 02/22/24) #Acute hypoxic respiratory failure # Cronic constipation #Lung nodule, possible lung metastasis #Chronic renal cyst #Kidney metastasis #Hypertensive heart disease with systolic/diastolic disfunction #DM type 2 with hyperglycemia #Cronic Anemia, rule out anemia of chronic disease. #DVT ruled out #Hypothyroidism #Brain Metastases Discharge Disposition: Hospice- Medical Facility SNF Discharge Will this Physician continue t: No Discharge Instruct/Medications Diet: Cardiac 2g Na,low cholest Activity: No Restrictions, As Tolerated Follow Up/Referral: Follow up with pcp in one week. follow up with oncologyst in 1 week Scheduled Atorvastatin Calcium (Atorvastatin Calcium), 1 TAB PO QPM, (Reported) Insulin Isophane & Reg (Human) (Humulin 70/30 (70-30) 100 Unit/ml), 8 UNITS SC BID, (Reported) Levothyroxine Sodium (Levothyroxine Sodium), 0.5 TAB PO QAM, (Reported) Losartan Potassium (Losartan Potassium), 1 TAB PO DAILY, (Reported) Metoprolol Tartrate (Metoprolol Tartrate), 25 MG PO BID, (Reported) Potassium Chloride (Potassium Chloride Cr), 1 TAB PO DAILY Prednisone (Prednisone), 40 MG PO QAM Warfarin Sodium (Warfarin Sodium), 2 TAB PO UD, (Reported) Discharge Statement: "Patient was advised to return to the ER or call 911 if any headaches, dizziness, shortness of breath, chest pain, abdominal pain, bleeding, fevers, or worsening of medical condition. Patient was counseled about treatment plan, medications, possible side effects, patientverbalized understanding. All questions were answered to the best of my ability. This discharge took greater then 30 minutes in planning, reviewing documentation, counseling the patient, and discussing with other team members." ASSESSMENT ASSESSMENT Assessment #Generalized weakness likely secondary to metastatic prostate cancer #Pathologic L5 fracture due to metastasis #Chronic anemia likely due to above Abdomen/Pelvis CT: Superior endplate burst fracture of L5, presumably pathologic.Extensive blastic metastatic disease throughout the visualized bony structures. #Atrial fibrillation, rate controlled on warfarin #Acute on chronic CHF exacerbation, HFpEF (EF: 55%, 02/22/24) Abdomen/Pelvis CT: Cardiomegaly, coronary artery disease, pleural effusions, and interstitial prominence in the lung bases suggestive of CHF. Continue with home meds #Acute hypoxic respiratory failure Continue with home meds # Chronic constipation Abdomen/Pelvis CT: Fecal retention throughout the colon suggestive of constipation. #Lung nodule, possible lung metastasis Abdomen/Pelvis CT: Left lower lobe 13 mm noncalcified pulmonary nodule is suspicious for metastatic disease. #Chronic renal cyst #Kidney metastasis Abdomen/Pelvis CT: Left lower lobe 13 mm noncalcified pulmonary nodule is suspicious for metastatic disease. #Hypertensive heart disease Metoprolol 25 mg po daily #DM type 2 with hyperglycemia Continue with home medications #Anemia, rule out anemia of chronic disease. Hb: 10.1 #Ruled out DVT Extremity venous study: No right or left femoropopliteal venous thrombosis. #Hypothyroidism TSH Levothyroxine po daily #Brain Metastases Brain MRI showed brain metastases Diet: Cardiac and low carbohydrate diet Goals of care discussed with the patient > 35 min. Discussed plan of care with Dr. Alaniz Code status: Full code PCP: Dr. Strong. Plan discussed with: Patient and family, the patient agrees with the discharge to hospice plan. Date of Service: Jan 24, 2025 Billing Provider: SRINIVASAN ALANIZ MD Common Visit Codes: 19341-PYI/OBS DISCH DAY >30min MAYA BARBOUR RESIDENT Jan 24, 2025 20:19
--- NOTE | 2025-01-28 08:01 | DVHSR ---
APPROVED REPORT EXAM: LIMITED Two-dimensional and M-mode echocardiogram with Doppler and color Doppler. Blood Pressure: 154/86 mmHg INDICATION Chest Pain RISK FACTORS Obesity: Height: 65, Weight: 254 DIMENSIONS LVDd4.5 (3.8-5.7cm)LA (2D) (1.9-4.0cm)Aortic Root3.2 (2.0-3.7cm) LVDs3.3 (2.5-4.0cm)LA (MM) (1.9-4.0cm)Aortic Cusp Exc1.7 (1.5-2.0cm) EF (%) 50.2 (55-70%)Rt. Atrium (1.9-4.0cm)Asc. Aorta cm IVSd1.3 (0.7-1.1cm)RV (D) (1.8-2.4cm) PWd1.0 (0.7-1.1cm) Mitral Valve MitralMitral Stenosis E wave0.99m/sMV Mean GR.1mmHg A wavem/sMV Peak GR.93mmHg E/A ratio0.02D MVAcm2 DECEL [id number] 1/2 [place] Aortic Valve Aortic ValveAortic Stenosis V10.77m/[place] Mean GR.mmHg V21.03m/[place] Peak GR.4mmHg LVOT Diameter1.8 (1.8-2.4cm)Doppler AVA1.90cm2 Pulmonic Valve V20.86m/s Tricuspid Valve TR Velocity1.91m/s [id number] Other Information Technically limited study due to body habitus.patient position. pt unable to turn on left side. Conclusion lvef 55% normal rv function no severe valve abnormality noted left atrium enlarged
== END 2025-01-24 18:04 | disposition hospice, home (50) | DRG 722 ==
LOC: EDSEX 11:20 → EDBD 11:20 → ER 11:20 → OVERFLOW 01-23 00:06 → TELE-EAST 01-23 01:52
PROVIDERS: ADMIT Internal Medicine; ATTEND Internal Medicine
DX: C61 Malignant neoplasm of prostate (principal); I50.33 Acute on chronic diastolic (congestive) heart failure; J96.01 Acute respiratory failure with hypoxia; S32.051A Stable burst fracture of fifth lumbar vertebra, initial encounter for closed fracture; C79.51 Secondary malignant neoplasm of bone; C18.9 Malignant neoplasm of colon, unspecified; M84.58XA Pathological fracture in neoplastic disease, other specified site, initial encounter for fracture; C78.00 Secondary malignant neoplasm of unspecified lung; C79.31 Secondary malignant neoplasm of brain; M51.379 Other intervertebral disc degeneration, lumbosacral region without mention of lumbar back pain or lower extremity pain; I48.91 Unspecified atrial fibrillation; I25.10 Atherosclerotic heart disease of native coronary artery without angina pectoris; I11.0 Hypertensive heart disease with heart failure; E03.9 Hypothyroidism, unspecified; E78.5 Hyperlipidemia, unspecified; K59.00 Constipation, unspecified; N28.1 Cyst of kidney, acquired; R74.01 Elevation of levels of liver transaminase levels; E11.65 Type 2 diabetes mellitus with hyperglycemia; N18.9 Chronic kidney disease, unspecified; D63.1 Anemia in chronic kidney disease; Y92.89 Other specified places as the place of occurrence of the external cause; Z79.899 Other long term (current) drug therapy
CPT/HCPCS: 36415; 70553; 71045; 74176; 80048; 80053; 80061; 80076; 82306; 82607; 82962; 82977; 83036; 83540; 83550; 83605; 83735; 83880; 84154; 84439; 84443; 84480; 85007; 85025; 85027; 85610; 85730; 93005; 93306; 93970; 96361; 96374; 96375; G0378; J1815